=== PATIENT | male | born 1955 | race Caucasian/White ===

== ENCOUNTER → 2017-10-07 09:32 | Outpatient (CLI) | payer BC, SELFPAY ==
[2017-10-07 11:26] LABS: HCT 51.2 % (40.0-50.0); HGB 17.4 g/dL (13.5-17.5); Mean Corpuscular Hemoglobin 31.1 pg (27.0-33.0); Mean Corpuscular Volume 91.6 fL (80-95); Mean Platelet Volume 10.4 fL (8.0-11.0); Platelet Count 245 x1000/uL (130-400); RBC 5.59 m/cumm (4.50-6.00); White Blood Cell Count 7.52 k/cumm (4.4-10.8)
[2017-10-07 12:04] LABS: ALT 77 U/L (12-78); AST 38 U/L (15-37); Albumin 3.7 g/dL (3.4-5.0); Alkaline Phosphatase 99 U/L (46-116); Anion Gap 6.6 mmol/L (3-11); BUN 14 mg/dL (7-18); Bilirubin, Total 0.4 mg/dL (0.2-1.0); C-Reactive Protein 0.31 mg/dL (0.0-0.3); CO2 29.4 mmol/L (21.0-32.0); CREATININE 0.88 mg/dL (0.70-1.30); Calcium 9.1 mg/dL (8.5-10.1); Chloride 102 mmol/L (98-107); Glucose 89 mg/dL (70-100); Potassium 4.7 mmol/L (3.5-5.1); Sodium 138 mmol/L (136-145); TSH 1.06 uIU/mL (0.358-3.74); Total Protein 7.8 g/dL (6.4-8.2)
[2017-10-07 12:21] LABS: ESR 8 MM/HR (1-20)
[2017-10-08 09:22] LABS: PSA, Screening 0.2 ng/ml (0-4.5)
[2017-10-08 15:19] LABS: Lyme Ab w Rflx to Lyme Confirm Negative
== END ==
PROVIDERS: PCP Emergency Medicine; Visit Provider Emergency Medicine
DX: R53.83 Other fatigue (principal); Z12.5 Encounter for screening for malignant neoplasm of prostate
CPT/HCPCS: 36415; 80053; 84153; 85027; 85652; 84443; 86140; 86618

== ENCOUNTER 2019-02-04 07:00 | Outpatient (CLI) | payer BC, SELFPAY ==
[2019-02-04 12:52] LABS: Abs Immature Grans 0.02 k/cumm (0.0-0.09); Absolute Basophil Count 0.05 k/cumm (0.0-0.2); Absolute Eosinophil Count 0.18 k/cumm (0.0-0.7); Absolute Lymphocyte Count 2.17 k/cumm (1.2-3.4); Absolute Monocyte Count 0.87 k/cumm (0.11-0.7); Absolute Neutrophil Count 3.97 k/cumm (1.2-6.7); Basophils % 0.7; Eosinophils % 2.5; HCT 52.3 % (40.0-50.0); HGB 17.5 g/dL (13.5-17.5); Immature Grans % 0.3; Lymphocytes % 29.9; Mean Corp. HGB Concentration 33.5 g/dL (32.0-36.0); Mean Corpuscular Hemoglobin 30.4 pg (27.0-33.0); Mean Corpuscular Volume 90.8 fL (80-95); Mean Platelet Volume 10.5 fL (8.0-11.0); Neutrophils % 54.6; Platelet Count 271 x1000/uL (130-400); RBC 5.76 m/cumm (4.50-6.00); RBC Distribution Width 13.7 % (11.8-14.1); White Blood Cell Count 7.26 k/cumm (4.4-10.8)
[2019-02-04 13:03] LABS: ALT 61 U/L (16-63); AST 34 U/L (15-37); Albumin 3.9 g/dL (3.4-5.0); Alkaline Phosphatase 83 U/L (46-116); Anion Gap 6.2 mmol/L (3-11); BUN 10 mg/dL (7-18); Bilirubin, Total 0.5 mg/dL (0.2-1.0); CO2 28.8 mmol/L (21.0-32.0); CREATININE 0.97 mg/dL (0.70-1.30); Calcium 9.2 mg/dL (8.5-10.1); Calculated LDL 123 mg/dL; Chloride 101 mmol/L (98-107); Cholesterol 168 mg/dL (<200); Glucose 93 mg/dL (74-106); HDL Cholesterol 35 mg/dL (40-60); Potassium 4.8 mmol/L (3.5-5.1); Sodium 136 mmol/L (136-145); TSH 1.45 uIU/mL (0.36-3.74); Triglyceride 54 mg/dL (<150)
[2019-02-04 13:12] LABS: C-Reactive Protein 0.44 mg/dL (0.0-0.3)
== END 2019-02-04 07:20 ==
PROVIDERS: PCP Emergency Medicine; Visit Provider Emergency Medicine
DX: Z00.00 Encounter for general adult medical examination without abnormal findings (principal); E03.9 Hypothyroidism, unspecified; R53.83 Other fatigue
CPT/HCPCS: 36415; 80053; 80061; 84443; 85025; 86140

== ENCOUNTER 2019-11-14 07:01 | Day surgery (SDC) | payer BC, SELFPAY ==
--- NOTE | 2019-11-14 06:56 | COLE_ITS ---
Date of service: 11/14/19 Time of Service: 08:24 Colonoscopy Report Date of procedure: 11/14/19 Pre-op diagnosis general: Hx of colon polyps Post-op diagnosis procedure note: same (and diverticulosis) Procedure: Colonoscopy with polypectomy Surgeon: Rosalie Rodgers Anesthesia proc note operative: other (General/ASA 2/Antonina Dubose CRNA) Estimated blood loss (mL): 3 Pathology: other (Transverse polyp x1, sigmoid polyp x3, rectal polyp x18) Complications: None Disposition: same day Indications: The patient is here for Colonoscopy pre-op. His last screening was in 2017 and was remarkable for tubular adenomatous polyp. He has no family history of colon cancer. He has not had any bowel habit changes. -Discussed colonoscopy bowel prep as well as the procedure. Discussed possible complications of the procedure to include bleeding, pain, perforation, missed small lesion/polyp, sore throat, aspiration and adverse reaction to the medications. Questions were answered to patient?s satisfaction. No guarantees were implied or given. Prep: Miralax/Dulcolax Procedure Start Time: Procedure End Time: : Retraction Time: 37 minutes Findings: multiple polyps, diverticulosis of the sigmoid colon Procedure Description: After informed consent was obtained the patient was taken to the procedure room and placed in a left decubitous position. Monitors were applied and a time out was done. The patients name, date of , p rocedure, allergies to medications and metal in their body was reviewed. The patient was then sedated. Once sedated and comfortable a rectal exam was done. External exam was normal. Internal exam revealed a normal sphincter tone and no palpable masses. The prostate felt normal. The scope was then introduced and retro-flexed. No internal hemorrhoids were identified. The scope was then advanced to the cecum without difficulty. The ileocecal valve and appendiceal orifice were identified. The prep was adequate. The scope was then slowly retracted over 37 minutes back into the rectum. Po lyps were removed with a hot snare in the transverse colon, and with cold forceps in the sigmoid colon x3 and rectal polyps x18. The scope was removed and the patient was woken up and taken back to Same day surgery in stable condition. The patient tolerated the procedure well and there were no immediate complications. Follow up: The patient should follow up in 3 years unless they develop changes in bowel habits or other new gastrointestinal complaints.
--- NOTE | 2019-11-14 06:57 | W.PM.DSUDISC ---
Discharge Plan Disposition Patient Disposition: HOME Condition: Good Discharge Details Reason For Visit: Colonoscopy Attending Provider: Rosalie Rodgers Primary Care Provider: Thang Reaves Home Meds and New Rx's Prescriptions: Continued ibuprofen 800 MG tablet 800 mg PO BID Qty: 180 RF: 1 clonazepam [Klonopin] 0.5 mg tablet 0.5 mg PO HS Qty: 90 RF: 1 albuterol sulfate [ProAir HFA] 90 mcg/actuation HFA aerosol inhaler 2 inh Inhalation Q6H WHILE AWAKE Qty: 18 RF: 12 (DME) AeroChamber Plus Z Stat Sm Msk 1 EACH spacer 1 ea Miscellaneous DIRECTED Qty: 1 RF: 0 Discontinued polyethylene glycol 3350 17 gram/dose powder 238 g PO ONCE Qty: 238 RF: 0 bisacodyl [Dulcolax (bisacodyl)] 5 mg tablet,delayed release (DR/EC) 5 mg PO ONCE Qty: 4 RF: 0 Discharge Instructions Additional Instructions: Findings: 22 polyps removed diverticulosis Follow up: 3 years Please call if you develop: fevers >101.5 Nausea or Vomiting Abdominal pain that is not transient DAY SURGERY UNIT POST ENDOSCOPY INSTRUCTIONS 1. Because there will be medication in your system for the next 24 hours, you may feel a little sleepy. Your coordination will be affected. Therefore: a. Do not drive or operate dangerous equipment for 24 hours. b. Do not drink alcohol beverages for 24 hours (not even beer). c. Plan to go home and rest for the day. 2. Generally there are no restrictions on your activity after a day or so has gone by, but you may feel a bit fatigued for a few days. 3 After you arrive home you may have a light meal and return to a normal diet as you can tolerate it without feeling sick to your stomach. 4. After surgery, you may feel pain or discomfort. This should be only transient, but if it persists please contact your doctor. 5. If there are any questions regarding the findings of your procedure, please feel free to contact your doctor. 6. If you are unable to contact your doctor with a problem, contact the hospital at [phone]. 7. Continue all your regular medications unless directed otherwise. I understand the above instructions and have no questions. Signature of Patient or Responsible Adult Escort Date/Time Name of Responsible Adult Escort Signature of Nurse Date/Time Activity:: Activity as Tolerated Diet:: high fiber diet Discharge Orders Discharge Orders: Discharge Order (Routine); Ordered 11/14/19 Ordered By: Rosalie Rodgers
[2019-11-14 07:24] VITALS: BP 162/89; PULSE 67; RESP 18; TEMP 36.5; O2SAT 96
[2019-11-14] MEDS: Lactated Ringers 1,000 ML 80 ML IV (07:40)
--- NOTE | 2019-11-14 08:40 | BOWEL_PTH ---
PATIENT: Florencio Salinas LOC: [facility] U#:[id number] AGE/SX: 64/M ROOM: RE11/14/[address]: Rosalie Rodgers MD : [id number] BED: DIS: 11/14/2019 SPEC #: [id number] RECD: 11/14/19 12:24 STATUS: FRANCA REQ #: [id number] NANCY: 11/14/19 08:[address]: Rosalie Rodgers DEPT: Surgical Specimen RECD BY: Katja Upton ENTERED: 11/14/19 12:26 SP TYPE: Bowel OTHR DR: Thang Reaves DO Tissues: 1 - BIOPSY BOWEL 2 - BIOPSY BOWEL 3 - BIOPSY BOWEL Procedures: GROSS AND MICRO LEVEL 4 Comments: [id number]
[2019-11-14 09:40] VITALS: BP 112/82; PULSE 61; RESP 18; TEMP 35.8; O2SAT 94
== END 2019-11-14 10:20 | disposition home or self-care (01) ==
LOC: SUR 07:02
PROVIDERS: PCP Emergency Medicine; Visit Provider Surgery
PROC: 0DJD8ZZ Inspection of Lower Intestinal Tract, Via Natural or Artificial Opening Endoscopic (ICD-10-PCS; CPT 45378; principal; 2019-11-14 08:30)
DX: Z12.11 Encounter for screening for malignant neoplasm of colon (principal); K57.30 Diverticulosis of large intestine without perforation or abscess without bleeding; K62.1 Rectal polyp; K63.5 Polyp of colon; F17.210 Nicotine dependence, cigarettes, uncomplicated; J45.909 Unspecified asthma, uncomplicated
CPT/HCPCS: 45380; 88305

== ENCOUNTER 2020-02-14 00:38 | Outpatient (CLI) | payer BC, SELFPAY ==
--- NOTE | 2020-02-14 08:00 | DI.CT_ITS ---
EXAM: CT CHEST W CLINICAL HISTORY: Hemoptysis. Heavy smoking,SOB,R06.02,R04.2,F17.200 TECHNIQUE: Imaging Protocol: Axial computed tomography images with coronal and sagittal reformatted images were created and reviewed CONTRAST MATERIAL: Intravenous: Omnipaque 350 Contrast volume:70 mL. COMPARISON: CR CHEST 2 VIEWS PA,LAT from 05/22/2015 FINDINGS: Tracheobronchial tree: Patent where visualized. Mediastinum and Sammie: Left hilar adenopathy. The largest lymph node measures 2.3 x 1.7 cm. Pulmonary parenchyma: Centrilobular and paraseptal emphysematous changes. There is a 4.9 x 3 x 4.2 c m thick walled mass in the peripheral aspect of the left lower lobe. There is central air which may reflect necrosis. There is a 0.6 cm nodule anterior to the mass in the left lower lobe. This may re present and a satellite metastasis. No focal consolidating infiltrates. Pleura: No effusion or pneumothorax. Heart: The heart is not dilated. Moderate coronary artery calcification. No significant pericardial effusion. Aorta: Thoracic aorta non-dilated. Atherosclerosis. Upper abdomen: Bilateral renal cysts and bilateral nephrolithiasis. Colonic diverticulosis. Lymph nodes: Please see the above discussion. Bones: Degenerative changes in the spine. Soft tissues: Unremarkable. IMPRESSION: 1. 4.9 x 3 x 4.2 cm thick-walled mass in the left lower lobe suspicious for neoplasm. Left hilar zenon nopathy and 6 mm satellite nodule in the left lower lobe. 2. Centrilobular and paraseptal emphysema. 3. Coronary artery calcification and atherosclerosis. RADIATION DOSE DELIVERED: 727.41mGy.cm Total DLP DATA REPOSITORY: All CT scans at this facility are submitted to the National Radiology Data Registry (NRDR) Dose Index Registry (DIR) with the [employer] (ACR). RADIATION OPTIMIZATION: All CT scans at this facility use at least one of these dose optimization te chniques: automated exposure control; mA and/or kV adjustment per patient size (includes targeted exa ms where dose is matched to clinical indication); or iterative reconstruction.
[2020-02-14 13:17] LABS: Anion Gap 6.3 mmol/L (3-11); BUN 15 mg/dL (7-18); CO2 28.7 mmol/L (21.0-32.0); CREATININE 0.84 mg/dL (0.70-1.30); Chloride 100 mmol/L (98-107); Glucose 84 mg/dL (74-106); Potassium 4.3 mmol/L (3.5-5.1); Sodium 135 mmol/L (136-145)
[2020-02-14] MEDS: Omnipaque 350 MG/ML 100 ML BTL IJ (13:45)
[2020-02-14] MEDS: Normal Saline - Diluent 50 ML VIAL IV (13:47)
== END 2020-02-14 00:58 ==
PROVIDERS: PCP Emergency Medicine; Visit Provider Emergency Medicine
DX: R91.1 Solitary pulmonary nodule (principal); F17.210 Nicotine dependence, cigarettes, uncomplicated; R59.0 Localized enlarged lymph nodes; R91.8 Other nonspecific abnormal finding of lung field; J43.2 Centrilobular emphysema; I25.10 Atherosclerotic heart disease of native coronary artery without angina pectoris; R04.2 Hemoptysis; I10 Essential (primary) hypertension
CPT/HCPCS: 80048; 71260; J3490

== ENCOUNTER 2020-04-16 02:56 | Outpatient (CLI) | payer BC, SELFPAY ==
[2020-04-16 09:18] LABS: Abs Immature Grans 0.24 10^3/uL (0.0-0.06); Absolute Basophil Count 0.05 10^3/uL (0.0-0.2); Basophils % 0.3; Eosinophils % 0.1; HCT 48.4 % (40.0-50.0); HGB 16.6 g/dL (13.5-17.5); Immature Grans % 1.4; Lymphocytes % 14.3; MCH 30.7 pg (27.0-33.0); MCHC 34.3 % (32.0-36.0); MCV 89.6 fL (80-95); MPV 9.6 fL (8.0-11.0); Neutrophils % 80.9; Nucleated RBC 0 %; Platelet Count 497 10^3/uL (130-400); RDW 14.2 % (11.8-14.1); RDW-SD 45.7 fL; WBC 17.24 10^3/uL (4.4-10.8)
[2020-04-16 09:26] LABS: Absolute Eosinophil Count 0.02 10^3/uL (0.0-0.7); Absolute Lymphocyte Count 2.47 10^3/uL (1.2-3.4); Absolute Monocyte Count 0.52 10^3/uL (0.1-0.8); Absolute Neutrophil Count 13.95 10^3/uL (1.2-6.7)
[2020-04-16 09:46] LABS: ALT 385 U/L (16-63); AST 114 U/L (15-37); Albumin 3.7 g/dL (3.4-5.0); Alkaline Phosphatase 162 U/L (46-116); Anion Gap 9.1 mmol/L (3-11); BUN 19 mg/dL (7-18); Bilirubin, Total 0.4 mg/dL (0.2-1.0); CO2 24.9 mmol/L (21.0-32.0); CREATININE 0.8 mg/dL (0.70-1.30); Calcium 9.3 mg/dL (8.5-10.1); Chloride 100 mmol/L (98-107); FREE T4 1.17 ng/dL (0.76-1.46); Glucose 154 mg/dL (74-106); LDH 269 U/L (85-227); Potassium 4.5 mmol/L (3.5-5.1); Sodium 134 mmol/L (136-145); TSH 0.72 uIU/mL (0.36-3.74); Total Protein 8.5 g/dL (6.4-8.2)
== END 2020-04-16 02:57 | disposition home or self-care (01) ==
LOC: LBO 02:56
PROVIDERS: PCP Emergency Medicine; Visit Provider Nurse Practitioner Adult Health
DX: C34.30 Malignant neoplasm of lower lobe, unspecified bronchus or lung (principal); Z79.899 Other long term (current) drug therapy
CPT/HCPCS: 36415; 80053; 83615; 84439; 84443; 85025

== ENCOUNTER 2020-04-20 02:21 | Outpatient (CLI) | payer BC, SELFPAY ==
[2020-04-20 10:10] LABS: Abs Immature Grans 0.03 10^3/uL (0.0-0.06); HCT 49.8 % (40.0-50.0); MCH 30.7 pg (27.0-33.0); MCHC 34.1 % (32.0-36.0); MCV 90.1 fL (80-95); MPV 10.3 fL (8.0-11.0); Nucleated RBC 0 %; RBC 5.53 10^6/uL (4.36-5.78); RDW 14.1 % (11.8-14.1); RDW-SD 46.8 fL; WBC 12.31 10^3/uL (4.4-10.8)
[2020-04-20 10:16] LABS: ALT 421 U/L (16-63); AST 165 U/L (15-37); Albumin 3.7 g/dL (3.4-5.0); Alkaline Phosphatase 138 U/L (46-116); Anion Gap 8.7 mmol/L (3-11); BUN 21 mg/dL (7-18); Bilirubin, Direct 0.24 mg/dL (0.00-0.20); Bilirubin, Total 0.9 mg/dL (0.2-1.0); CO2 27.3 mmol/L (21.0-32.0); CREATININE 0.8 mg/dL (0.70-1.30); Calcium 8.9 mg/dL (8.5-10.1); Chloride 98 mmol/L (98-107); FREE T4 1.39 ng/dL (0.76-1.46); Glucose 78 mg/dL (74-106); LDH 248 U/L (85-227); Potassium 4.4 mmol/L (3.5-5.1); Sodium 134 mmol/L (136-145); Total Protein 7.5 g/dL (6.4-8.2)
[2020-04-20 10:49] LABS: Absolute Eosinophil Count 0.37 10^3/uL (0.0-0.7); Absolute Monocyte Count 0.12 10^3/uL (0.1-0.8); Absolute Neutrophil Count 8.62 10^3/uL (1.2-6.7); Atypical Lymphocytes % 4; Diff Comment Manual Differential
[2020-04-20 10:50] LABS: Platelet Count 354 10^3/uL (130-400); RBC Morphology Normal
[2020-04-23 09:13] LABS: HBs Antibody, Quant <3.1 mIU/mL (See Note); Hepatitis B Surface Ab Negative (See Note)
[2020-04-23 09:26] LABS: Hepatitis B Surface Ag Negative (Negative)
[2020-04-23 11:42] LABS: Hepatitis C Ab w Rflx HCV PCR Reactive (Negative)
[2020-04-25 14:03] LABS: HCV RNA Qualitative Detected (Undetected)
== END 2020-04-20 02:22 | disposition home or self-care (01) ==
LOC: LBO 02:21
PROVIDERS: PCP Emergency Medicine; Visit Provider Nurse Practitioner Adult Health
DX: C34.30 Malignant neoplasm of lower lobe, unspecified bronchus or lung (principal); R74.01 Elevation of levels of liver transaminase levels; Z79.899 Other long term (current) drug therapy
CPT/HCPCS: 36415; 80053; 80076; 86706; 86803; 87340; 87522; 83615; 84439; 84443; 85025

== ENCOUNTER 2020-04-23 15:23 | Outpatient (CLI) | payer BC, SELFPAY ==
[2020-04-23 15:45] LABS: Abs Immature Grans 0.07 10^3/uL (0.0-0.06); Absolute Basophil Count 0.01 10^3/uL (0.0-0.2); Absolute Eosinophil Count 0.01 10^3/uL (0.0-0.7); Absolute Neutrophil Count 9.97 10^3/uL (1.2-6.7); Basophils % 0.1; Eosinophils % 0.1; HCT 45.5 % (40.0-50.0); HGB 15.9 g/dL (13.5-17.5); Immature Grans % 0.5; Lymphocytes % 16.3; MCH 31.3 pg (27.0-33.0); MCHC 34.9 % (32.0-36.0); MCV 89.6 fL (80-95); MPV 10.5 fL (8.0-11.0); Monocytes % 6.2; Neutrophils % 76.8; Nucleated RBC 0 %; RBC 5.08 10^6/uL (4.36-5.78); RDW 13.3 % (11.8-14.1); RDW-SD 43.8 fL; WBC 12.98 10^3/uL (4.4-10.8)
[2020-04-23 15:47] LABS: Absolute Lymphocyte Count 2.12 10^3/uL (1.2-3.4)
[2020-04-23 15:48] LABS: Platelet Count 205 10^3/uL (130-400)
[2020-04-23 16:07] LABS: ALT 311 U/L (16-63); AST 68 U/L (15-37); Albumin 3.4 g/dL (3.4-5.0); Alkaline Phosphatase 144 U/L (46-116); Anion Gap 7.5 mmol/L (3-11); BUN 22 mg/dL (7-18); Bilirubin, Total 0.5 mg/dL (0.2-1.0); CO2 26.5 mmol/L (21.0-32.0); CREATININE 0.8 mg/dL (0.70-1.30); Calcium 9.4 mg/dL (8.5-10.1); Chloride 99 mmol/L (98-107); FREE T4 1.12 ng/dL (0.76-1.46); Glucose 137 mg/dL (74-106); LDH 173 U/L (85-227); Potassium 4.4 mmol/L (3.5-5.1); Sodium 133 mmol/L (136-145); TSH 0.27 uIU/mL (0.36-3.74); Total Protein 7.4 g/dL (6.4-8.2)
== END 2020-04-23 15:24 | disposition home or self-care (01) ==
LOC: LBO 15:24
PROVIDERS: PCP Emergency Medicine; Visit Provider Nurse Practitioner Adult Health
DX: C34.30 Malignant neoplasm of lower lobe, unspecified bronchus or lung (principal); Z79.899 Other long term (current) drug therapy
CPT/HCPCS: 36415; 80053; 83615; 84439; 84443; 85025

== ENCOUNTER 2020-05-01 03:27 | Outpatient (CLI) | payer BC, SELFPAY ==
[2020-05-01 12:57] LABS: ALT 497 U/L (16-63); AST 143 U/L (15-37); Albumin 3.2 g/dL (3.4-5.0); Alkaline Phosphatase 144 U/L (46-116); Anion Gap 4.6 mmol/L (3-11); BUN 16 mg/dL (7-18); Bilirubin, Total 0.4 mg/dL (0.2-1.0); CO2 29.4 mmol/L (21.0-32.0); CREATININE 0.9 mg/dL (0.70-1.30); Chloride 101 mmol/L (98-107); Glucose 100 mg/dL (74-106); Potassium 4.4 mmol/L (3.5-5.1); Sodium 135 mmol/L (136-145); Total Protein 6.8 g/dL (6.4-8.2)
[2020-05-01 15:33] LABS: Abs Immature Grans 0.15 10^3/uL (0.0-0.06); Absolute Basophil Count 0.04 10^3/uL (0.0-0.2); Absolute Eosinophil Count 0.01 10^3/uL (0.0-0.7); Absolute Lymphocyte Count 1.45 10^3/uL (1.2-3.4); Basophils % 0.5; Eosinophils % 0.1; HCT 48.3 % (40.0-50.0); HGB 16.4 g/dL (13.5-17.5); Immature Grans % 1.9; Lymphocytes % 18.5; MCH 31.2 pg (27.0-33.0); MPV 11.1 fL (8.0-11.0); Monocytes % 17.8; Neutrophils % 61.2; Nucleated RBC 0 %; Platelet Count 159 10^3/uL (130-400); RBC 5.25 10^6/uL (4.36-5.78); RDW 15.5 % (11.8-14.1); RDW-SD 50.4 fL; WBC 7.85 10^3/uL (4.4-10.8)
[2020-05-01 16:01] LABS: ALT 516 U/L (16-63); AST 144 U/L (15-37); Albumin 3.3 g/dL (3.4-5.0); Alkaline Phosphatase 141 U/L (46-116); Anion Gap 6.5 mmol/L (3-11); BUN 16 mg/dL (7-18); Bilirubin, Total 0.4 mg/dL (0.2-1.0); CO2 29.5 mmol/L (21.0-32.0); CREATININE 0.8 mg/dL (0.70-1.30); Chloride 100 mmol/L (98-107); FREE T4 1.19 ng/dL (0.76-1.46); Glucose 99 mg/dL (74-106); LDH 245 U/L (85-227); Potassium 4.4 mmol/L (3.5-5.1); Sodium 136 mmol/L (136-145); TSH 0.97 uIU/mL (0.36-3.74); Total Protein 6.9 g/dL (6.4-8.2)
== END 2020-05-01 03:28 | disposition home or self-care (01) ==
PROVIDERS: PCP Emergency Medicine; Visit Provider Nurse Practitioner Adult Health
DX: C34.30 Malignant neoplasm of lower lobe, unspecified bronchus or lung (principal); Z79.899 Other long term (current) drug therapy
CPT/HCPCS: 36415; 80053; 83615; 84439; 84443; 85025

== ENCOUNTER 2020-05-07 07:07 | Outpatient (CLI) | payer BC, SELFPAY ==
[2020-05-07 09:18] LABS: Abs Immature Grans 0.29 10^3/uL (0.0-0.06); Absolute Basophil Count 0.05 10^3/uL (0.0-0.2); Absolute Lymphocyte Count 1.13 10^3/uL (1.2-3.4); Absolute Neutrophil Count 10.92 10^3/uL (1.2-6.7); Basophils % 0.4; HGB 16.8 g/dL (13.5-17.5); Immature Grans % 2.2; Lymphocytes % 8.7; MCH 31.8 pg (27.0-33.0); MCHC 34.3 % (32.0-36.0); MCV 92.6 fL (80-95); MPV 10.5 fL (8.0-11.0); Monocytes % 4.8; Neutrophils % 83.9; Nucleated RBC 0 %; Platelet Count 252 10^3/uL (130-400); RBC 5.29 10^6/uL (4.36-5.78); RDW 16.2 % (11.8-14.1); RDW-SD 54.2 fL; WBC 13.02 10^3/uL (4.4-10.8)
[2020-05-07 09:38] LABS: Absolute Monocyte Count 0.62 10^3/uL (0.1-0.8)
[2020-05-07 09:39] LABS: ALT 537 U/L (16-63); AST 138 U/L (15-37); Albumin 3.1 g/dL (3.4-5.0); Alkaline Phosphatase 165 U/L (46-116); Anion Gap 6.8 mmol/L (3-11); BUN 13 mg/dL (7-18); Bilirubin, Total 0.4 mg/dL (0.2-1.0); CO2 29.2 mmol/L (21.0-32.0); CREATININE 0.9 mg/dL (0.70-1.30); Calcium 8.8 mg/dL (8.5-10.1); Chloride 100 mmol/L (98-107); FREE T4 1.14 ng/dL (0.76-1.46); Glucose 152 mg/dL (74-106); LDH 249 U/L (85-227); Potassium 4.5 mmol/L (3.5-5.1); Sodium 136 mmol/L (136-145); TSH 0.61 uIU/mL (0.36-3.74); Total Protein 7.2 g/dL (6.4-8.2)
== END 2020-05-07 07:08 | disposition home or self-care (01) ==
LOC: LBO 07:08
PROVIDERS: PCP Emergency Medicine; Visit Provider Nurse Practitioner Adult Health
DX: C34.30 Malignant neoplasm of lower lobe, unspecified bronchus or lung (principal); Z79.899 Other long term (current) drug therapy
CPT/HCPCS: 36415; 80053; 83615; 84439; 84443; 85025

== ENCOUNTER 2020-05-14 02:12 | Outpatient (CLI) | payer BC, SELFPAY ==
--- NOTE | 2020-05-14 08:48 | DI.CT_ITS ---
EXAM: CT CHEST W CLINICAL HISTORY: METASTATIC LUNG CA,RESTAGING EXAM,S/O CHEMO,C34.30. TECHNIQUE: Multi planar reconstructions were performed. CONTRAST MATERIAL: Omnipaque 350; 70 cc COMPARISON: CT CT CHEST W from 02/14/2020 FINDINGS: CHEST: LUNGS: Again noted is the pleural based partially cavitated left lower lobe mass,, exhibiting minimal decrease in size. This mass presently measures approximately 4.2 cm by 2.3 cm by 3 cm craniocaudal. There is no associated pleural effusion nor overlying left rib destruction. There is a tiny 2-3 mi llimeter unchanged pleural base nodular density at the level superior segment of the left lower lobe which is unchanged.. No other focal left lung findings.. There are no focal findings in the opposit e-right lung and no right pleural effusion. There are no significant focal findings in the trachea a nd mainstem bronchi. MEDIASTINUM: The size of the previously described left hilar lymph nodes have decreased. Opposite-ri ght hilum is unremarkable. There is no obvious subcarinal adenopathy. There is no adenopathy in the anterior mediastinal fat nor in the aortopulmonic window. There is no supraclavicular adenopathy. There is no axillary adenopathy. Visualized thyroid unremarkable. CARDIAC: Heart size is normal. There is no pericardial effusion.Caliber of the thoracic aorta is wit hin normal limits. VISUALIZED UPPER ABDOMEN:There are no significant adrenal masses. Partially included left kidney cys t is again noted. OSSEOUS: No significant osseous lesions.. IMPRESSION: 1. Relatively stable (perhaps slightly decreased) size of the left lower lobe partially cavitated sub pleural mass. No new pulmonary findings nor pleural effusions 2. Left hilar lymph nodes have decreased in size. No new adenopathy in the hilar regions and mediast inum. 3. No lytic osseous lesions evident. RADIATION DOSE DELIVERED: 581.15mGy.cm Total DLP DATA REPOSITORY: All CT scans at this facility are submitted to the National Radiology Data Registry (NRDR) Dose Index Registry (DIR) with the [employer] (ACR). RADIATION OPTIMIZATION: All CT scans at this facility use at least one of these dose optimization te chniques: automated exposure control; mA and/or kV adjustment per patient size (includes targeted exa ms where dose is matched to clinical indication); or iterative reconstruction.
[2020-05-14] MEDS: Normal Saline - Diluent 50 ML VIAL IV (08:51)
[2020-05-14] MEDS: Omnipaque 350 MG/ML 100 ML BTL 70 ML IJ (08:52)
== END 2020-05-14 02:32 ==
PROVIDERS: PCP Emergency Medicine; Visit Provider Internal Medicine Medical Oncology
DX: R91.8 Other nonspecific abnormal finding of lung field (principal); C34.32 Malignant neoplasm of lower lobe, left bronchus or lung; R59.0 Localized enlarged lymph nodes
CPT/HCPCS: 71260; J3490

== ENCOUNTER 2020-05-21 04:20 | Outpatient (CLI) | payer BC, SELFPAY ==
[2020-05-21 10:43] LABS: Abs Immature Grans 0.06 10^3/uL (0.0-0.06); Absolute Basophil Count 0.02 10^3/uL (0.0-0.2); Absolute Monocyte Count 0.52 10^3/uL (0.1-0.8); Absolute Neutrophil Count 9.81 10^3/uL (1.2-6.7); Basophils % 0.2; HCT 52.2 % (40.0-50.0); HGB 17.9 g/dL (13.5-17.5); Immature Grans % 0.5; Lymphocytes % 10.6; MCH 31.8 pg (27.0-33.0); MCHC 34.3 % (32.0-36.0); MCV 92.7 fL (80-95); MPV 10.4 fL (8.0-11.0); Monocytes % 4.5; Neutrophils % 84.2; Nucleated RBC 0 %; Platelet Count 185 10^3/uL (130-400); RBC 5.63 10^6/uL (4.36-5.78); RDW 16.2 % (11.8-14.1); RDW-SD 55.3 fL; WBC 11.65 10^3/uL (4.4-10.8)
[2020-05-21 11:06] LABS: ALT 419 U/L (16-63); AST 189 U/L (15-37); Albumin 3.1 g/dL (3.4-5.0); Alkaline Phosphatase 164 U/L (46-116); Anion Gap 11.4 mmol/L (3-11); BUN 12 mg/dL (7-18); Bilirubin, Total 0.8 mg/dL (0.2-1.0); CO2 22.6 mmol/L (21.0-32.0); Calcium 9.5 mg/dL (8.5-10.1); Chloride 100 mmol/L (98-107); FREE T4 1.36 ng/dL (0.76-1.46); Glucose 188 mg/dL (74-106); LDH 267 U/L (85-227); Potassium 4.1 mmol/L (3.5-5.1); Sodium 134 mmol/L (136-145); TSH 0.61 uIU/mL (0.36-3.74); Total Protein 8.3 g/dL (6.4-8.2)
[2020-05-21 11:07] LABS: Absolute Lymphocyte Count 1.23 10^3/uL (1.2-3.4)
== END 2020-05-21 04:21 | disposition home or self-care (01) ==
LOC: LBO 04:20
PROVIDERS: PCP Emergency Medicine; Visit Provider Nurse Practitioner Adult Health
DX: C34.30 Malignant neoplasm of lower lobe, unspecified bronchus or lung (principal); Z79.899 Other long term (current) drug therapy
CPT/HCPCS: 36415; 80053; 83615; 84439; 84443; 85025

== ENCOUNTER 2020-06-11 03:21 | Outpatient (CLI) | payer BC, SELFPAY ==
[2020-06-11 12:21] LABS: Abs Immature Grans 0.11 10^3/uL (0.0-0.06); Absolute Basophil Count 0.03 10^3/uL (0.0-0.2); Absolute Lymphocyte Count 1.95 10^3/uL (1.2-3.4); Absolute Neutrophil Count 9.95 10^3/uL (1.2-6.7); Basophils % 0.2; HCT 48.9 % (40.0-50.0); HGB 16.7 g/dL (13.5-17.5); Immature Grans % 0.8; MCH 32.3 pg (27.0-33.0); MCHC 34.2 % (32.0-36.0); MCV 94.6 fL (80-95); MPV 9.8 fL (8.0-11.0); Monocytes % 7.5; Neutrophils % 76.5; Nucleated RBC 0 %; Platelet Count 382 10^3/uL (130-400); RBC 5.17 10^6/uL (4.36-5.78); RDW 15.9 % (11.8-14.1); RDW-SD 56.5 fL; WBC 13.01 10^3/uL (4.4-10.8)
[2020-06-11 12:24] LABS: Absolute Monocyte Count 0.98 10^3/uL (0.1-0.8)
[2020-06-11 12:43] LABS: ALT 270 U/L (16-63); AST 124 U/L (15-37); Albumin 3.5 g/dL (3.4-5.0); Alkaline Phosphatase 130 U/L (46-116); BUN 11 mg/dL (7-18); Bilirubin, Total 0.4 mg/dL (0.2-1.0); CREATININE 1.1 mg/dL (0.70-1.30); Calcium 9.9 mg/dL (8.5-10.1); Chloride 102 mmol/L (98-107); FREE T4 1.17 ng/dL (0.76-1.46); Glucose 138 mg/dL (74-106); LDH 254 U/L (85-227); Sodium 136 mmol/L (136-145); TSH 0.35 uIU/mL (0.36-3.74); Total Protein 8.2 g/dL (6.4-8.2)
== END 2020-06-11 03:22 | disposition home or self-care (01) ==
LOC: LBO 03:22
PROVIDERS: PCP Emergency Medicine; Visit Provider Nurse Practitioner Adult Health
DX: C34.32 Malignant neoplasm of lower lobe, left bronchus or lung (principal); Z79.899 Other long term (current) drug therapy
CPT/HCPCS: 36415; 80053; 83615; 84439; 84443; 85025

== ENCOUNTER 2020-07-02 09:49 | Outpatient (CLI) | payer BC, SELFPAY ==
[2020-07-02 10:05] LABS: Abs Immature Grans 0.03 10^3/uL (0.0-0.06); Absolute Basophil Count 0.02 10^3/uL (0.0-0.2); Absolute Lymphocyte Count 1.46 10^3/uL (1.2-3.4); Absolute Monocyte Count 0.43 10^3/uL (0.1-0.8); Basophils % 0.3; HCT 46.9 % (40.0-50.0); HGB 16.5 g/dL (13.5-17.5); Immature Grans % 0.5; Lymphocytes % 24.6; MCH 33.7 pg (27.0-33.0); MCHC 35.2 % (32.0-36.0); MCV 95.9 fL (80-95); MPV 9.7 fL (8.0-11.0); Monocytes % 7.2; Neutrophils % 67.4; Nucleated RBC 0 %; Platelet Count 380 10^3/uL (130-400); RBC 4.89 10^6/uL (4.36-5.78); RDW-SD 53.9 fL; WBC 5.94 10^3/uL (4.4-10.8)
[2020-07-02 10:26] LABS: ALT 44 U/L (16-63); AST 26 U/L (15-37); Albumin 3.6 g/dL (3.4-5.0); Alkaline Phosphatase 105 U/L (46-116); BUN 10 mg/dL (7-18); Bilirubin, Total 0.4 mg/dL (0.2-1.0); CREATININE 1.1 mg/dL (0.70-1.30); Calcium 9.6 mg/dL (8.5-10.1); Chloride 100 mmol/L (98-107); FREE T4 1.29 ng/dL (0.76-1.46); Glucose 170 mg/dL (74-106); LDH 241 U/L (85-227); Potassium 4.2 mmol/L (3.5-5.1); Sodium 136 mmol/L (136-145); TSH 0.31 uIU/mL (0.36-3.74); Total Protein 8.5 g/dL (6.4-8.2)
== END 2020-07-02 09:50 | disposition home or self-care (01) ==
PROVIDERS: PCP Emergency Medicine; Visit Provider Nurse Practitioner Adult Health
DX: C34.32 Malignant neoplasm of lower lobe, left bronchus or lung (principal); Z79.899 Other long term (current) drug therapy
CPT/HCPCS: 36415; 80053; 83615; 84439; 84443; 85025

== ENCOUNTER 2020-07-30 04:40 | Outpatient (CLI) | payer BC, SELFPAY ==
[2020-07-30 10:08] LABS: Abs Immature Grans 0.15 10^3/uL (0.0-0.06); Absolute Basophil Count 0.03 10^3/uL (0.0-0.2); Basophils % 0.2; HCT 41.5 % (40.0-50.0); HGB 14.6 g/dL (13.5-17.5); Immature Grans % 0.9; Lymphocytes % 9.7; MCH 34.4 pg (27.0-33.0); MCHC 35.2 % (32.0-36.0); MCV 97.9 fL (80-95); MPV 10.1 fL (8.0-11.0); Monocytes % 6.7; Neutrophils % 82.5; Nucleated RBC 0 %; Platelet Count 250 10^3/uL (130-400); RBC 4.24 10^6/uL (4.36-5.78); RDW 13.9 % (11.8-14.1); RDW-SD 49.9 fL; WBC 17.38 10^3/uL (4.4-10.8)
[2020-07-30 10:12] LABS: Absolute Lymphocyte Count 1.69 10^3/uL (1.2-3.4); Absolute Monocyte Count 1.16 10^3/uL (0.1-0.8); Absolute Neutrophil Count 14.34 10^3/uL (1.2-6.7)
[2020-07-30 10:30] LABS: ALT 27 U/L (16-63); AST 28 U/L (15-37); Albumin 3.3 g/dL (3.4-5.0); Alkaline Phosphatase 101 U/L (46-116); Anion Gap 9.7 mmol/L (3-11); BUN 16 mg/dL (7-18); Bilirubin, Total 0.3 mg/dL (0.2-1.0); CO2 26.3 mmol/L (21.0-32.0); CREATININE 0.9 mg/dL (0.70-1.30); Calcium 9.4 mg/dL (8.5-10.1); Chloride 101 mmol/L (98-107); FREE T4 1.02 ng/dL (0.76-1.46); Glucose 128 mg/dL (74-106); LDH 282 U/L (85-227); Potassium 4.5 mmol/L (3.5-5.1); Sodium 137 mmol/L (136-145); TSH 0.34 uIU/mL (0.36-3.74); Total Protein 8.2 g/dL (6.4-8.2)
== END 2020-07-30 04:41 | disposition home or self-care (01) ==
LOC: LBO 04:40
PROVIDERS: PCP Emergency Medicine; Visit Provider Nurse Practitioner Adult Health
DX: C34.32 Malignant neoplasm of lower lobe, left bronchus or lung (principal); Z79.899 Other long term (current) drug therapy
CPT/HCPCS: 36415; 80053; 83615; 84439; 84443; 85025

== ENCOUNTER 2020-08-20 03:29 | Outpatient (CLI) | payer BC, SELFPAY ==
[2020-08-20 09:34] LABS: Abs Immature Grans 0.02 10^3/uL (0.0-0.06); Absolute Basophil Count 0.08 10^3/uL (0.0-0.2); Absolute Eosinophil Count 0.41 10^3/uL (0.0-0.7); Absolute Lymphocyte Count 2.53 10^3/uL (1.2-3.4); Absolute Monocyte Count 1.33 10^3/uL (0.1-0.8); Basophils % 1.1; Eosinophils % 5.9; HGB 14.6 g/dL (13.5-17.5); Immature Grans % 0.3; Lymphocytes % 36.3; MCH 34.7 pg (27.0-33.0); MCV 102.1 fL (80-95); MPV 9.7 fL (8.0-11.0); Monocytes % 19.1; Neutrophils % 37.3; Nucleated RBC 0 %; Platelet Count 318 10^3/uL (130-400); RBC 4.21 10^6/uL (4.36-5.78); RDW 13.3 % (11.8-14.1); RDW-SD 50.1 fL; WBC 6.97 10^3/uL (4.4-10.8)
[2020-08-20 09:56] LABS: ALT 60 U/L (16-63); AST 37 U/L (15-37); Albumin 3.3 g/dL (3.4-5.0); Alkaline Phosphatase 102 U/L (46-116); Anion Gap 10.1 mmol/L (3-11); BUN 13 mg/dL (7-18); Bilirubin, Total 0.3 mg/dL (0.2-1.0); CO2 25.9 mmol/L (21.0-32.0); Calcium 9.4 mg/dL (8.5-10.1); Chloride 105 mmol/L (98-107); FREE T4 1.07 ng/dL (0.76-1.46); Glucose 95 mg/dL (74-106); LDH 278 U/L (85-227); Potassium 4.2 mmol/L (3.5-5.1); Sodium 141 mmol/L (136-145); TSH 1.38 uIU/mL (0.36-3.74); Total Protein 7.9 g/dL (6.4-8.2)
== END 2020-08-20 03:30 | disposition home or self-care (01) ==
LOC: LBO 03:29
PROVIDERS: PCP Emergency Medicine; Visit Provider Nurse Practitioner Adult Health
DX: C34.32 Malignant neoplasm of lower lobe, left bronchus or lung (principal); Z79.899 Other long term (current) drug therapy
CPT/HCPCS: 36415; 80053; 83615; 84439; 84443; 85025

== ENCOUNTER 2020-08-30 01:22 | Outpatient (CLI) | payer BC, SELFPAY ==
--- NOTE | 2020-08-30 08:00 | ETT_ITS ---
APPROVED REPORT Exam: Exercise Treadmill Patient Location: Out-Patient Room/Bed: Stress Nurse: Kala Haines RN Ordering Provider:PÉREZ RICH, Contact Number: [phone] BMI: 29.91 Baseline Rhythm: Sinus Rhythm Indications: Chest pain Medical History Medical History: Adenocarcinoma of lung, kidney, brain (stage 4), SOB, anxiety, COPD, diverticulitis Cardiac Medications: Albuterol sulfate, clonazepam Allergies: Theophylline Cardiac Risk Factors: COPD, tobacco abuse (current) Previous Cardiac Procedures: None Pretest Chest Pain Characteristics: None Exercise History: Sedentary Physical Disabilities: None Lung Sounds: Clear to auscultation Heart Sounds: Regular Stress Test Details Test: Exercise stress testing was performed using a Tip protocol. Rest Stress HR Resting HR Supine: 60 bpm Max Heart Rate (APMHR): 155 bpm Resting HR Standin bpm Target HR (85% APMHR): 131 bpm Max HR Achieved: 103 bpm % of APMHR: 66 Recovery HR: 70 bpm HR response to stress: Normal HR response to stress Comment: Non-diagnostic, did not achieve THR BP Resting BP Supine: 150/82 mmHg Resting BP Standin/78 mmHg Max BP: 172/68 mmHg Recovery BP: 142/76 mmHg BP response to stress: Normal blood pressure response to stress. ECG Resting ECG: Sinus Rhythm Ectopy: None Stress ECG: Sinus Tachycardia ST Change: No significant ST segment changes noted Arrhythmia: None Comment: T waves flipped in lead V2 Recovery ECG: Sinus Rhythm Recovery ST Change: No significant ST segment changes noted Recovery Arrhythmia: Rare PVC Clinical Reason for Termination: Fatigue, Dyspnea Stress Symptoms: General Fatigue, Dyspnea Exercise duration: 5 min44 sec Highest Stage Reached: Stage 2: 2.5 mph at 12% grade. Exercise capacity: 7.05 METs Rate Pressure Product: 03492 Stress ECG Conclusion 1. The patient exercised for 5 minutes and 44 seconds (7 METS). Exercise was stopped due to dyspnea and fatigue. 2. The patient only reached 66% of maximum predicted heart rate. 3. At this level of stress there was no evidence of ischemia on the ECG. If clinical suspicion remai ns high consider alternative diagnostic modality. Stress Test Summary STAGE Time (mins) Speed (mph) Grade (%) HR BP SYMPTOMS METS Supine 60 150/82 Standing 79 144/78 1 3 1.7 10 88 160/76 SpO2 96%, mild SOB 4.6 2 6 2.5 12 100 SpO2 96%, moderate SOB 7 1 min recovery 99 172/68 SpO2 97% 3 min recovery 77 158/74 SpO2 97%, mild SOB 6 min recovery 70 142/76 symptoms resolved
== END 2020-08-30 01:42 ==
PROVIDERS: PCP Emergency Medicine; Visit Provider Emergency Medicine
DX: R07.9 Chest pain, unspecified (principal); J44.9 Chronic obstructive pulmonary disease, unspecified; F17.290 Nicotine dependence, other tobacco product, uncomplicated
CPT/HCPCS: 93017

== ENCOUNTER 2020-09-17 16:07 | Outpatient (CLI) | payer BC, SELFPAY ==
[2020-09-17 10:10] LABS: Absolute Basophil Count 0.03 10^3/uL (0.0-0.2); Basophils % 0.2; HCT 41.9 % (40.0-50.0); HGB 14.2 g/dL (13.5-17.5); Immature Grans % 0.6; Lymphocytes % 9.1; MCH 34.8 pg (27.0-33.0); MCHC 33.9 % (32.0-36.0); MCV 102.7 fL (80-95); MPV 10.1 fL (8.0-11.0); Neutrophils % 82.1; Nucleated RBC 0 %; Platelet Count 262 10^3/uL (130-400); RBC 4.08 10^6/uL (4.36-5.78); RDW 13.2 % (11.8-14.1); RDW-SD 50.1 fL; WBC 17.07 10^3/uL (4.4-10.8)
[2020-09-17 10:14] LABS: Absolute Lymphocyte Count 1.55 10^3/uL (1.2-3.4); Absolute Monocyte Count 1.37 10^3/uL (0.1-0.8); Absolute Neutrophil Count 14.01 10^3/uL (1.2-6.7)
[2020-09-17 10:34] LABS: ALT 37 U/L (16-63); AST 30 U/L (15-37); Albumin 3.5 g/dL (3.4-5.0); Alkaline Phosphatase 99 U/L (46-116); BUN 14 mg/dL (7-18); Bilirubin, Total 0.4 mg/dL (0.2-1.0); Calcium 9.5 mg/dL (8.5-10.1); Chloride 102 mmol/L (98-107); FREE T4 1.02 ng/dL (0.76-1.46); Glucose 137 mg/dL (74-106); LDH 273 U/L (85-227); Potassium 4.4 mmol/L (3.5-5.1); Sodium 137 mmol/L (136-145); TSH 0.39 uIU/mL (0.36-3.74); Total Protein 8.5 g/dL (6.4-8.2)
== END 2020-09-17 16:08 | disposition home or self-care (01) ==
LOC: LBO 16:07
PROVIDERS: PCP Emergency Medicine; Visit Provider Nurse Practitioner Adult Health
DX: C34.30 Malignant neoplasm of lower lobe, unspecified bronchus or lung (principal); Z79.899 Other long term (current) drug therapy
CPT/HCPCS: 36415; 80053; 83615; 84439; 84443; 85025

== ENCOUNTER 2020-10-08 12:09 | Outpatient (CLI) | payer BC, SELFPAY ==
[2020-10-08 12:00] LABS: Abs Immature Grans 0.13 10^3/uL (0.0-0.06); Absolute Basophil Count 0.02 10^3/uL (0.0-0.2); Absolute Lymphocyte Count 1.36 10^3/uL (1.2-3.4); Absolute Monocyte Count 0.93 10^3/uL (0.1-0.8); Absolute Neutrophil Count 14.14 10^3/uL (1.2-6.7); Basophils % 0.1; HCT 41.5 % (40.0-50.0); HGB 13.9 g/dL (13.5-17.5); Immature Grans % 0.8; Lymphocytes % 8.2; MCH 35.1 pg (27.0-33.0); MCHC 33.5 % (32.0-36.0); MCV 104.8 fL (80-95); MPV 9.8 fL (8.0-11.0); Monocytes % 5.6; Neutrophils % 85.3; Nucleated RBC 0 %; Platelet Count 378 10^3/uL (130-400); RBC 3.96 10^6/uL (4.36-5.78); RDW 13.8 % (11.8-14.1); RDW-SD 52.8 fL; WBC 16.58 10^3/uL (4.4-10.8)
[2020-10-08 12:29] LABS: ALT 70 U/L (16-63); AST 35 U/L (15-37); Albumin 3.6 g/dL (3.4-5.0); Alkaline Phosphatase 102 U/L (46-116); Anion Gap 9.2 mmol/L (3-11); BUN 22 mg/dL (7-18); Bilirubin, Total 0.3 mg/dL (0.2-1.0); CO2 25.8 mmol/L (21.0-32.0); Calcium 9.6 mg/dL (8.5-10.1); Chloride 105 mmol/L (98-107); Glucose 120 mg/dL (74-106); LDH 270 U/L (85-227); Potassium 4.6 mmol/L (3.5-5.1); Sodium 140 mmol/L (136-145); TSH 0.39 uIU/mL (0.36-3.74); Total Protein 8.2 g/dL (6.4-8.2)
== END 2020-10-08 12:10 | disposition home or self-care (01) ==
LOC: LBO 12:11
PROVIDERS: PCP Emergency Medicine; Visit Provider Nurse Practitioner Adult Health
DX: C34.30 Malignant neoplasm of lower lobe, unspecified bronchus or lung (principal); Z79.899 Other long term (current) drug therapy
CPT/HCPCS: 36415; 80053; 83615; 84439; 84443; 85025

== ENCOUNTER 2020-10-18 09:53 | Outpatient (CLI) | payer BC, SELFPAY ==
--- NOTE | 2020-10-18 09:15 | DI.RAD_ITS ---
Exam(s) XR KNEE RT 3V AP,LAT,ANISH EXAM: XR KNEE RT 3V AP,LAT,ANISH CLINICAL HISTORY: right knee pain. TECHNIQUE: 2D digital imaging was performed. COMPARISON: CR XR KNEE LT 3V AP,LAT,ANISH from 10/18/2020 FINDINGS: There is no evidence of fracture or obvious joint effusion. No obvious degenerative changes. No oss eous lesions. Bone density normal. No joint space narrowing evident on the standing weight-bearing view. IMPRESSION: No significant radiographic findings. No joint effusion. DATA REPOSITORY: RADIATION DOSE DELIVERED:
--- NOTE | 2020-10-18 09:15 | DI.RAD_ITS ---
Exam(s) XR KNEE LT 3V AP,LAT,ANISH EXAM: XR KNEE LT 3V AP,LAT,ANISH CLINICAL HISTORY: left knee pain. TECHNIQUE: 2D digital imaging was performed. COMPARISON: No exams were available for comparison FINDINGS: No evidence of fracture or joint effusion. Some calcification is noted on the anterosuperior aspect of the patella at the quadriceps insertion site. There is no joint space narrowing including on the weight-bearing standing view. No osteophytes. Bone density normal. No osseous lesions. IMPRESSION: DATA REPOSITORY: RADIATION DOSE DELIVERED:
== END 2020-10-18 09:54 | disposition home or self-care (01) ==
LOC: DIORS 09:53
PROVIDERS: PCP Emergency Medicine; Referring Provider Emergency Medicine; Visit Provider Student in an Organized Health Care Education/Training Program
DX: M25.562 Pain in left knee (principal); M25.561 Pain in right knee
CPT/HCPCS: 73562

== ENCOUNTER 2020-10-31 04:05 | Outpatient (CLI) | payer BC, SELFPAY ==
[2020-10-31 07:35] LABS: Abs Immature Grans 0.04 10^3/uL (0.0-0.06); Absolute Basophil Count 0.06 10^3/uL (0.0-0.2); Absolute Eosinophil Count 0.72 10^3/uL (0.0-0.7); Absolute Lymphocyte Count 2.71 10^3/uL (1.2-3.4); Absolute Monocyte Count 1.44 10^3/uL (0.1-0.8); Absolute Neutrophil Count 3.97 10^3/uL (1.2-6.7); Basophils % 0.7; Eosinophils % 8.1; HCT 41.9 % (40.0-50.0); HGB 14.4 g/dL (13.5-17.5); Immature Grans % 0.4; Lymphocytes % 30.3; MCH 35.7 pg (27.0-33.0); MCHC 34.4 % (32.0-36.0); MPV 9.7 fL (8.0-11.0); Monocytes % 16.1; Neutrophils % 44.4; Nucleated RBC 0 %; Platelet Count 382 10^3/uL (130-400); RBC 4.03 10^6/uL (4.36-5.78); RDW 13.9 % (11.8-14.1); RDW-SD 52.6 fL; WBC 8.94 10^3/uL (4.4-10.8)
[2020-10-31 08:04] LABS: ALT 92 U/L (16-63); AST 53 U/L (15-37); Albumin 3.4 g/dL (3.4-5.0); Alkaline Phosphatase 112 U/L (46-116); Anion Gap 6.5 mmol/L (3-11); BUN 16 mg/dL (7-18); Bilirubin, Total 0.2 mg/dL (0.2-1.0); CO2 29.5 mmol/L (21.0-32.0); CREATININE 1.1 mg/dL (0.70-1.30); Calcium 9.6 mg/dL (8.5-10.1); Chloride 104 mmol/L (98-107); Glucose 125 mg/dL (74-106); LDH 268 U/L (85-227); Potassium 4.2 mmol/L (3.5-5.1); Sodium 140 mmol/L (136-145); Total Protein 8.3 g/dL (6.4-8.2)
== END 2020-10-31 04:06 | disposition home or self-care (01) ==
LOC: LBO 04:05
PROVIDERS: Nurse Practitioner Adult Health; PCP Emergency Medicine; Visit Provider Internal Medicine Medical Oncology
DX: C34.32 Malignant neoplasm of lower lobe, left bronchus or lung (principal); Z79.899 Other long term (current) drug therapy
CPT/HCPCS: 36415; 80053; 83615; 84439; 84443; 85025

== ENCOUNTER 2020-11-06 01:27 | Outpatient (CLI) | payer BC, SELFPAY ==
--- NOTE | 2020-11-06 | DI.MRI_ITS ---
Exam(s) MR BRAIN WO/W EXAM: MR BRAIN WO/W CLINICAL HISTORY: NON SMALL CELL LUNG CA,C34.30,BRAIN METS,C79.31.ON THERAPY TECHNIQUE: Multiplanar multisequence MRI of the brain was performed. CONTRAST MATERIAL: IV Contrast: 18 ML of Dotarem contrast administered. COMPARISON: MR MRI - BRAIN W/WO CONTRAST from 01/12/2013 MR MRI - BRAIN W/WO CONTRAST from 01/12/2013 FINDINGS: VENTRICLES AND EXTRA AXIAL SPACES: Normal in size and morphology for the patient's age. HEMORRHAGE: None. CEREBRAL PARENCHYMA: No focus of restricted diffusion to suggest acute infarct. No space-occupying le larissa identified. There are multiple black dots seen on the gradient images in the parenchyma. There are areas of hyperintense signal on the T2 and FLAIR images in the white matter most consistent with chronic microvascular ischemic disease. MIDLINE SHIFT: None. BRAINSTEM/CEREBELLUM: Normal. CALVARIUM: Normal. ENHANCEMENT: No suspicious enhancement identified. No enhancing intracranial masses. VISUALIZED PARANASAL SINUSES/MASTOIDS: Clear. [place]: Normal flow void. PITUITARY GLAND: Unremarkable. OTHER FINDINGS: IMPRESSION: 1. No evidence of intracranial metastatic disease. 2. Findings of cerebral atrophy and small vessel ischemic disease. 3. Multiple black dots seen on the gradient images in the parenchyma. Differential considerations in clude cerebral amyloid disease, hypertensive microhemorrhages, multiple vascular malformations or tra armen. DATA REPOSITORY:
[2020-11-06] MEDS: Normal Saline Flush 10 ML SYR IVP (12:14)
[2020-11-06] MEDS: Gadoterate meglumine 20 ML VIAL 18 ML IVP (12:15)
== END 2020-11-06 01:47 ==
PROVIDERS: PCP Emergency Medicine; Visit Provider Nurse Practitioner Adult Health
DX: C34.30 Malignant neoplasm of lower lobe, unspecified bronchus or lung (principal); C79.31 Secondary malignant neoplasm of brain; G31.9 Degenerative disease of nervous system, unspecified
CPT/HCPCS: 70553

== ENCOUNTER 2020-11-19 03:27 | Outpatient (CLI) | payer BC, SELFPAY ==
[2020-11-19 12:17] LABS: Abs Immature Grans 0.16 10^3/uL (0.0-0.06); Absolute Basophil Count 0.02 10^3/uL (0.0-0.2); Absolute Lymphocyte Count 1.23 10^3/uL (1.2-3.4); Absolute Neutrophil Count 17.94 10^3/uL (1.2-6.7); Basophils % 0.1; HGB 13.2 g/dL (13.5-17.5); Immature Grans % 0.8; MCH 35.8 pg (27.0-33.0); MCHC 33.8 % (32.0-36.0); MCV 105.7 fL (80-95); MPV 10.3 fL (8.0-11.0); Monocytes % 5.4; Neutrophils % 87.7; Nucleated RBC 0 %; Platelet Count 409 10^3/uL (130-400); RBC 3.69 10^6/uL (4.36-5.78); RDW 14.7 % (11.8-14.1); RDW-SD 56.5 fL; WBC 20.46 10^3/uL (4.4-10.8)
[2020-11-19 13:06] LABS: ALT 86 U/L (16-63); AST 49 U/L (15-37); Albumin 3.4 g/dL (3.4-5.0); Alkaline Phosphatase 114 U/L (46-116); Anion Gap 8.8 mmol/L (3-11); BUN 26 mg/dL (7-18); Bilirubin, Total 0.3 mg/dL (0.2-1.0); CO2 26.2 mmol/L (21.0-32.0); CREATININE 1.1 mg/dL (0.70-1.30); Calcium 9.7 mg/dL (8.5-10.1); Chloride 103 mmol/L (98-107); FREE T4 0.96 ng/dL (0.76-1.46); Glucose 113 mg/dL (74-106); LDH 280 U/L (85-227); Potassium 4.1 mmol/L (3.5-5.1); Sodium 138 mmol/L (136-145); TSH 0.36 uIU/mL (0.36-3.74); Total Protein 8.7 g/dL (6.4-8.2)
[2020-11-20 12:42] LABS: Hepatitis C Ab w Rflx HCV PCR Reactive (Negative)
[2020-11-21 14:01] LABS: HCV RNA Qualitative Undetected (Undetected)
== END 2020-11-19 03:28 | disposition home or self-care (01) ==
LOC: LBO 03:27
PROVIDERS: PCP Emergency Medicine; Visit Provider Internal Medicine Medical Oncology
DX: C34.32 Malignant neoplasm of lower lobe, left bronchus or lung (principal); C79.31 Secondary malignant neoplasm of brain; Z79.899 Other long term (current) drug therapy
CPT/HCPCS: 36415; 80053; 86803; 87522; 83615; 84439; 84443; 85025

== ENCOUNTER 2020-12-10 02:55 | Outpatient (CLI) | payer BC, SELFPAY ==
[2020-12-10 12:42] LABS: Abs Immature Grans 0.16 10^3/uL (0.0-0.06); Basophils % 0.1; HCT 39.7 % (40.0-50.0); HGB 13.6 g/dL (13.5-17.5); Immature Grans % 0.8; Lymphocytes % 6.6; MCH 36.4 pg (27.0-33.0); MCHC 34.3 % (32.0-36.0); MCV 106.1 fL (80-95); MPV 10.4 fL (8.0-11.0); Monocytes % 6.4; Neutrophils % 86.1; Nucleated RBC 0 %; Platelet Count 419 10^3/uL (130-400); RBC 3.74 10^6/uL (4.36-5.78); RDW 15.2 % (11.8-14.1); RDW-SD 59.6 fL; WBC 20.55 10^3/uL (4.4-10.8)
[2020-12-10 12:45] LABS: Absolute Basophil Count 0.02 10^3/uL (0.0-0.2); Absolute Lymphocyte Count 1.36 10^3/uL (1.2-3.4); Absolute Monocyte Count 1.32 10^3/uL (0.1-0.8); Absolute Neutrophil Count 17.69 10^3/uL (1.2-6.7)
[2020-12-10 14:17] LABS: ALT 47 U/L (16-63); AST 27 U/L (15-37); Albumin 3.4 g/dL (3.4-5.0); Alkaline Phosphatase 123 U/L (46-116); BUN 22 mg/dL (7-18); Bilirubin, Total 0.3 mg/dL (0.2-1.0); CREATININE 1.4 mg/dL (0.70-1.30); Calcium 9.4 mg/dL (8.5-10.1); Chloride 102 mmol/L (98-107); Estimated GFR 50.86 (mL/min/1.73m2); FREE T4 0.94 ng/dL (0.76-1.46); Glucose 112 mg/dL (74-106); LDH 273 U/L (85-227); Potassium 4.9 mmol/L (3.5-5.1); Sodium 139 mmol/L (136-145); Total Protein 8.5 g/dL (6.4-8.2)
== END 2020-12-10 02:56 | disposition home or self-care (01) ==
PROVIDERS: PCP Emergency Medicine; Visit Provider Nurse Practitioner Adult Health
DX: C34.32 Malignant neoplasm of lower lobe, left bronchus or lung (principal); Z79.899 Other long term (current) drug therapy
CPT/HCPCS: 36415; 80053; 83615; 84439; 84443; 85025

== ENCOUNTER 2020-12-31 04:01 | Outpatient (CLI) | payer BC, SELFPAY ==
[2020-12-31 12:00] LABS: Abs Immature Grans 0.14 10^3/uL (0.0-0.06); Absolute Lymphocyte Count 1.48 10^3/uL (1.2-3.4); Absolute Neutrophil Count 15.22 10^3/uL (1.2-6.7); Basophils % 0.2; Eosinophils % 0.1; HCT 39.2 % (40.0-50.0); HGB 13.7 g/dL (13.5-17.5); Immature Grans % 0.7; Lymphocytes % 7.9; MCH 36.4 pg (27.0-33.0); MCHC 34.9 % (32.0-36.0); MCV 104.3 fL (80-95); MPV 9.5 fL (8.0-11.0); Monocytes % 9.7; Neutrophils % 81.4; Nucleated RBC 0 %; Platelet Count 475 10^3/uL (130-400); RBC 3.76 10^6/uL (4.36-5.78); RDW 14.1 % (11.8-14.1)
[2020-12-31 12:15] LABS: Absolute Basophil Count 0.04 10^3/uL (0.0-0.2); Absolute Eosinophil Count 0.02 10^3/uL (0.0-0.7); Absolute Monocyte Count 1.81 10^3/uL (0.1-0.8)
[2020-12-31 12:20] LABS: ALT 33 U/L (16-63); AST 27 U/L (15-37); Albumin 3.5 g/dL (3.4-5.0); Alkaline Phosphatase 124 U/L (46-116); Anion Gap 5.9 mmol/L (3-11); BUN 20 mg/dL (7-18); Bilirubin, Total 0.3 mg/dL (0.2-1.0); CO2 31.1 mmol/L (21.0-32.0); CREATININE 1.4 mg/dL (0.70-1.30); Calcium 9.5 mg/dL (8.5-10.1); Chloride 99 mmol/L (98-107); Estimated GFR 50.86 (mL/min/1.73m2); FREE T4 1.15 ng/dL (0.76-1.46); Glucose 108 mg/dL (74-106); LDH 279 U/L (85-227); Potassium 4.3 mmol/L (3.5-5.1); Sodium 136 mmol/L (136-145); TSH 0.89 uIU/mL (0.36-3.74); Total Protein 8.6 g/dL (6.4-8.2)
[2020-12-31 12:27] LABS: Diff Comment Diff Reviewed; Macrocytosis 1+
== END 2020-12-31 04:02 | disposition home or self-care (01) ==
PROVIDERS: PCP Emergency Medicine; Visit Provider Nurse Practitioner Adult Health
DX: C34.30 Malignant neoplasm of lower lobe, unspecified bronchus or lung (principal); Z79.899 Other long term (current) drug therapy
CPT/HCPCS: 36415; 80053; 83615; 84439; 84443; 85025

== ENCOUNTER 2021-01-16 01:44 | Outpatient (CLI) | payer BC, SELFPAY ==
[2021-01-16] MEDS: Breeza Beverage 473 ML BTL 946 ML PO (10:48)
[2021-01-16] MEDS: Omnipaque 350 MG/ML 100 ML BTL IJ (11:06)
[2021-01-16] MEDS: Normal Saline Flush 10 ML SYR IVP (11:07)
--- NOTE | 2021-01-16 11:07 | DI.CT_ITS ---
Exam(s) CT CHEST/ABD/PEL W EXAM: CT CHEST/ABD/PEL W CLINICAL HISTORY: LUNG CANCER BRAIN METS RESTAGING LT SIDED ABD PAIN TECHNIQUE: CT examination of the chest, abdomen, and pelvis was performed utilizing intravenous inf usion of 100 cc of Omnipaque 350 with biphasic hepatic imaging. Oral contrast was also administered. COMPARISON: CT CT CHEST W from 10/22/[address] CHEST W from 10/22/2020 FINDINGS: There are changes of COPD. A previously described left lower lobe treated lung carcinoma is again se en, no change in appearance comparison with examination of October 22.. No pleural effusion. There is a stable 5 millimeter in diameter pleural based left lower lobe intrapulmonary nodule at the leve l of the aortic arch period. No mediastinal or hilar adenopathy. Largest visible lymph node is a 2 cm in diameter right hilar nod e, grossly unchanged from prior study. No axillary or supraclavicular adenopathy. Tracheobronchial tree appears intact. No evidence of pulmonary embolic disease. Unremarkable appearance of thoracic aorta and major branch vessels except for extensive atheromatous calcification.. The liver appears normal with no focal hepatic lesion identified. Spleen is unremarkable in appearance. Pancreas appears intact. Adrenals appear normal. There are bilateral renal cysts and a nonobstructing right lower pole renal calculus. No solid mass lesion identified involving kidneys. No evidence of urinary tract calcification or obstruction.. Abdominal aortic wall is heavily calcified. There is a 3 cm in diameter infrarenal abdominal aortic aneurysm. There is extensive atheromatous calcifications of abdominal vasculature, question high-gra de stenosis superior mesenteric artery origin.. No focal bowel pathology. Appendix is normal. No evidence of diverticulitis. No abdominal or pelvic adenopathy. No significant abdominal wall hernia. No focal bony lesion identified on scanning of the chest, abdomen, and pelvis. IMPRESSION: Stable appearance of left lower lobe lung carcinoma. Stable 5 millimeter pleural based left lower lobe nodule at the level of the aortic arch. No evidence of new metastatic disease. RADIATION DOSE DELIVERED: 1,582.89mGy.cm Total DLP 1,582.89mGy.cm Total DLP CTDIvol RADIATION OPTIMIZATION: All CT scans at this facility use at least one of these dose optimization te chniques: automated exposure control; mA and/or kV adjustment per patient size (includes targeted exa ms where dose is matched to clinical indication); or iterative reconstruction.
== END 2021-01-16 02:04 ==
PROVIDERS: PCP Emergency Medicine; Visit Provider Internal Medicine Medical Oncology
DX: C34.30 Malignant neoplasm of lower lobe, unspecified bronchus or lung (principal); R91.1 Solitary pulmonary nodule
CPT/HCPCS: 74177; 71260; J3490

== ENCOUNTER 2021-01-21 03:01 | Outpatient (CLI) | payer BC, SELFPAY ==
[2021-01-21 10:21] LABS: Abs Immature Grans 0.04 10^3/uL (0.0-0.06); Absolute Basophil Count 0.06 10^3/uL (0.0-0.2); Absolute Eosinophil Count 0.26 10^3/uL (0.0-0.7); Absolute Lymphocyte Count 1.71 10^3/uL (1.2-3.4); Absolute Monocyte Count 1.22 10^3/uL (0.1-0.8); Absolute Neutrophil Count 5.98 10^3/uL (1.2-6.7); Basophils % 0.6; Eosinophils % 2.8; HCT 37.8 % (40.0-50.0); HGB 12.8 g/dL (13.5-17.5); Immature Grans % 0.4; Lymphocytes % 18.4; MCH 36.6 pg (27.0-33.0); MCHC 33.9 % (32.0-36.0); MPV 9.8 fL (8.0-11.0); Monocytes % 13.2; Neutrophils % 64.6; Nucleated RBC 0 %; Platelet Count 403 10^3/uL (130-400); RDW 14.3 % (11.8-14.1); WBC 9.27 10^3/uL (4.4-10.8)
[2021-01-21 10:45] LABS: ALT 31 U/L (16-63); AST 26 U/L (15-37); Albumin 3.1 g/dL (3.4-5.0); Alkaline Phosphatase 109 U/L (46-116); Anion Gap 4.7 mmol/L (3-11); BUN 12 mg/dL (7-18); Bilirubin, Total 0.3 mg/dL (0.2-1.0); CO2 31.3 mmol/L (21.0-32.0); CREATININE 1.4 mg/dL (0.70-1.30); Calcium 9.1 mg/dL (8.5-10.1); Chloride 103 mmol/L (98-107); Estimated GFR 50.86 (mL/min/1.73m2); FREE T4 1.04 ng/dL (0.76-1.46); Glucose 97 mg/dL (74-106); LDH 222 U/L (85-227); Potassium 4.5 mmol/L (3.5-5.1); Sodium 139 mmol/L (136-145); TSH 3.42 uIU/mL (0.36-3.74); Total Protein 7.6 g/dL (6.4-8.2)
== END 2021-01-21 03:02 | disposition home or self-care (01) ==
PROVIDERS: Internal Medicine Medical Oncology; PCP Emergency Medicine; Visit Provider Nurse Practitioner Adult Health
DX: C34.30 Malignant neoplasm of lower lobe, unspecified bronchus or lung (principal); Z79.899 Other long term (current) drug therapy
CPT/HCPCS: 36415; 80053; 83615; 84439; 84443; 85025

== ENCOUNTER 2021-02-11 01:08 | Outpatient (CLI) | payer BC, MEDICARE, SELFPAY ==
--- NOTE | 2021-02-11 | DI.MRI_ITS ---
Exam(s) MR BRAIN WO/W EXAM: MR BRAIN WO/W CLINICAL HISTORY: LUNG CA, C34.30,BRAIN METS,C79.31,S/P RADIATION,SURVEILLANCE SCAN. TECHNIQUE: Multiplanar multisequence MRI of the brain was performed. CONTRAST MATERIAL: IV Contrast: 17 ML of Dotarem contrast administered. COMPARISON: MR MR BRAIN WO/W from 11/06/2020 FINDINGS: VENTRICLES AND EXTRA AXIAL SPACES: Normal in size and morphology for the patient's age. HEMORRHAGE: None. CEREBRAL PARENCHYMA: No focus of restricted diffusion to suggest acute infarct. No space-occupying le larissa identified. Stable scattered punctate signal voids bilaterally MIDLINE SHIFT: None. BRAINSTEM/CEREBELLUM: Normal. CALVARIUM: Normal. ENHANCEMENT: No suspicious enhancement identified. VISUALIZED PARANASAL SINUSES/MASTOIDS: Clear. OTHER FINDINGS: None. IMPRESSION: Minimal microvascular changes. Stable scattered foci petechial areas of hemosiderin. No evidence of metastatic disease. DATA REPOSITORY:
[2021-02-11] MEDS: Normal Saline Flush 10 ML SYR IVP (15:10)
[2021-02-11] MEDS: Gadoterate meglumine 20 ML VIAL 17 ML IVP (15:11)
== END 2021-02-11 01:28 ==
PROVIDERS: PCP Emergency Medicine; Visit Provider Internal Medicine Medical Oncology
DX: C34.30 Malignant neoplasm of lower lobe, unspecified bronchus or lung (principal); C79.31 Secondary malignant neoplasm of brain; Z92.3 Personal history of irradiation
CPT/HCPCS: 70553

== ENCOUNTER 2021-02-18 04:04 | Outpatient (CLI) | payer BC, SELFPAY ==
[2021-02-18 09:09] LABS: Abs Immature Grans 0.03 10^3/uL (0.0-0.06); Absolute Basophil Count 0.09 10^3/uL (0.0-0.2); Absolute Eosinophil Count 0.41 10^3/uL (0.0-0.7); Absolute Lymphocyte Count 1.55 10^3/uL (1.2-3.4); Absolute Monocyte Count 1.15 10^3/uL (0.1-0.8); Absolute Neutrophil Count 5.45 10^3/uL (1.2-6.7); Eosinophils % 4.7; HGB 13.3 g/dL (13.5-17.5); Immature Grans % 0.3; Lymphocytes % 17.9; MCH 36.4 pg (27.0-33.0); MCHC 33.3 % (32.0-36.0); MCV 109.6 fL (80-95); MPV 9.4 fL (8.0-11.0); Monocytes % 13.2; Neutrophils % 62.9; Nucleated RBC 0 %; Platelet Count 264 10^3/uL (130-400); RBC 3.65 10^6/uL (4.36-5.78); RDW 13.3 % (11.8-14.1); RDW-SD 54.5 fL; WBC 8.68 10^3/uL (4.4-10.8)
[2021-02-18 09:30] LABS: ALT 23 U/L (16-63); AST 25 U/L (15-37); Albumin 3.2 g/dL (3.4-5.0); Alkaline Phosphatase 106 U/L (46-116); Anion Gap 4.9 mmol/L (3-11); BUN 19 mg/dL (7-18); Bilirubin, Total 0.3 mg/dL (0.2-1.0); CO2 30.1 mmol/L (21.0-32.0); CREATININE 1.2 mg/dL (0.70-1.30); Calcium 9.1 mg/dL (8.5-10.1); Chloride 102 mmol/L (98-107); FREE T4 1.03 ng/dL (0.76-1.46); Glucose 113 mg/dL (74-106); LDH 204 U/L (85-227); Potassium 4.1 mmol/L (3.5-5.1); Sodium 137 mmol/L (136-145); TSH 1.45 uIU/mL (0.36-3.74); Total Protein 7.8 g/dL (6.4-8.2)
== END 2021-02-18 04:05 | disposition home or self-care (01) ==
PROVIDERS: PCP Emergency Medicine; Visit Provider Nurse Practitioner Adult Health
DX: C34.32 Malignant neoplasm of lower lobe, left bronchus or lung (principal); Z79.899 Other long term (current) drug therapy
CPT/HCPCS: 36415; 80053; 83615; 84439; 84443; 85025

== ENCOUNTER 2021-03-18 03:33 | Outpatient (CLI) | payer BC, SELFPAY ==
[2021-03-18 13:07] LABS: Abs Immature Grans 0.02 10^3/uL (0.0-0.06); Absolute Basophil Count 0.09 10^3/uL (0.0-0.2); Absolute Eosinophil Count 0.33 10^3/uL (0.0-0.7); Absolute Lymphocyte Count 2.42 10^3/uL (1.2-3.4); Absolute Monocyte Count 0.99 10^3/uL (0.1-0.8); Absolute Neutrophil Count 4.53 10^3/uL (1.2-6.7); Basophils % 1.1; Eosinophils % 3.9; HCT 38.9 % (40.0-50.0); Immature Grans % 0.2; Lymphocytes % 28.9; MCH 35.7 pg (27.0-33.0); MCHC 33.4 % (32.0-36.0); MCV 106.9 fL (80-95); MPV 9.9 fL (8.0-11.0); Monocytes % 11.8; Neutrophils % 54.1; Nucleated RBC 0 %; Platelet Count 287 10^3/uL (130-400); RBC 3.64 10^6/uL (4.36-5.78); RDW 13.1 % (11.8-14.1); RDW-SD 51.8 fL; WBC 8.38 10^3/uL (4.4-10.8)
[2021-03-18 13:25] LABS: Diff Comment RBC Morph Reviewed
[2021-03-18 13:26] LABS: Macrocytosis 1+
[2021-03-18 13:33] LABS: ALT 30 U/L (16-63); AST 35 U/L (15-37); Albumin 2.8 g/dL (3.4-5.0); Alkaline Phosphatase 131 U/L (46-116); BUN 17 mg/dL (7-18); Bilirubin, Total 0.2 mg/dL (0.2-1.0); CREATININE 1.2 mg/dL (0.70-1.30); Calcium 9.3 mg/dL (8.5-10.1); Chloride 103 mmol/L (98-107); Glucose 95 mg/dL (74-106); LDH 211 U/L (85-227); Potassium 3.7 mmol/L (3.5-5.1); Sodium 139 mmol/L (136-145); Total Protein 8.2 g/dL (6.4-8.2)
[2021-03-18 13:55] LABS: FREE T4 1.18 ng/dL (0.76-1.46)
== END 2021-03-18 03:34 | disposition home or self-care (01) ==
LOC: LBO 03:33
PROVIDERS: Nurse Practitioner Adult Health; PCP Emergency Medicine; Visit Provider Internal Medicine Medical Oncology
DX: C34.30 Malignant neoplasm of lower lobe, unspecified bronchus or lung (principal); Z79.899 Other long term (current) drug therapy
CPT/HCPCS: 36415; 80053; 83615; 84439; 84443; 85025

== ENCOUNTER 2021-04-15 02:29 | Outpatient (CLI) | payer BC, SELFPAY | END 2021-04-15 02:30 | disposition home or self-care (01) | LOC: LBO 02:29 | PROVIDERS: PCP Emergency Medicine; Visit Provider Internal Medicine Medical Oncology ==

== ENCOUNTER 2021-04-16 01:52 | Outpatient (CLI) | payer BC, SELFPAY ==
[2021-04-16] MEDS: Omnipaque 350 MG/ML 100 ML BTL 70 ML IJ (10:26)
--- NOTE | 2021-04-16 10:27 | DI.CT_ITS ---
Exam(s) CT CHEST W EXAM: CT CHEST W CLINICAL HISTORY: LUNG CANCER C34.30 BRAIN METS C79.31 RESTAGING TECHNIQUE: COMPARISON: CT CT CHEST/ABD/PEL W from 01/16/2021 FINDINGS: CT examination of the chest was performed with a bolus infusion of 70 cc of Omnipaque 350. Current e xamination is compared with prior study of January 16 2021. Patient reportedly has treated left l ower lobe lung carcinoma. On today's examination, there are subtle peripheral ground-glass and reticular opacities which were n ot present on prior examination, please correlate regarding any history of infectious process. No ne w intrapulmonary nodule or mass is seen. The left lower lobe irregular mass is unchanged in appearan ce comparison with the prior examination. No new adenopathy identified in the mediastinum. 2 millim eter right hilar lymph node is unchanged. Slightly prominent aortopulmonary window node again noted. No new pleural effusion identified. No gross evidence of pulmonary embolic disease. Images obtained through the upper abdomen show unremarkable appearance of visualized portions of the liver. Spleen is unremarkable in appearance as is the pancreas. Nonobstructing right renal calculus noted. No adrenal mass identified. IMPRESSION: No gross interval change in appearance of left lower lobe lung carcinoma. No evidence of new metasta tic disease. Nonspecific peripheral bilateral reticular and ground-glass infiltrates noted, suspect inflammatory o r infectious process. Please correlate regarding any history of recent right COVID infection. RADIATION DOSE DELIVERED: 619.65mGy.cm Total DLP !Error CTDIvol RADIATION OPTIMIZATION: All CT scans at this facility use at least one of these dose optimization te chniques: automated exposure control; mA and/or kV adjustment per patient size (includes targeted exa ms where dose is matched to clinical indication); or iterative reconstruction.
== END 2021-04-16 02:12 ==
PROVIDERS: PCP Emergency Medicine; Visit Provider Internal Medicine Medical Oncology
DX: C34.32 Malignant neoplasm of lower lobe, left bronchus or lung (principal); C79.31 Secondary malignant neoplasm of brain; R91.8 Other nonspecific abnormal finding of lung field
CPT/HCPCS: 71260; J3490

== ENCOUNTER 2021-04-22 02:55 | Outpatient (CLI) | payer BC, SELFPAY ==
[2021-04-22 12:14] LABS: Abs Immature Grans 0.02 10^3/uL (0.0-0.06); Absolute Basophil Count 0.08 10^3/uL (0.0-0.2); Absolute Eosinophil Count 0.36 10^3/uL (0.0-0.7); Absolute Lymphocyte Count 2.46 10^3/uL (1.2-3.4); Absolute Monocyte Count 0.73 10^3/uL (0.1-0.8); Absolute Neutrophil Count 5.17 10^3/uL (1.2-6.7); Basophils % 0.9; Eosinophils % 4.1; HCT 42.5 % (40.0-50.0); HGB 14.5 g/dL (13.5-17.5); Immature Grans % 0.2; Lymphocytes % 27.9; MCHC 34.1 % (32.0-36.0); MCV 102.7 fL (80-95); MPV 9.6 fL (8.0-11.0); Monocytes % 8.3; Neutrophils % 58.6; Nucleated RBC 0 %; Platelet Count 282 10^3/uL (130-400); RBC 4.14 10^6/uL (4.36-5.78); RDW 11.9 % (11.8-14.1); RDW-SD 45.1 fL; WBC 8.82 10^3/uL (4.4-10.8)
[2021-04-22 12:34] LABS: ALT 20 U/L (16-63); AST 23 U/L (15-37); Albumin 3.3 g/dL (3.4-5.0); Alkaline Phosphatase 111 U/L (46-116); Anion Gap 10.6 mmol/L (3-11); BUN 13 mg/dL (7-18); Bilirubin, Total 0.4 mg/dL (0.2-1.0); CO2 24.4 mmol/L (21.0-32.0); CREATININE 1.3 mg/dL (0.70-1.30); Calcium 9.3 mg/dL (8.5-10.1); Chloride 102 mmol/L (98-107); FREE T4 1.09 ng/dL (0.76-1.46); Glucose 106 mg/dL (74-106); LDH 213 U/L (85-227); Sodium 137 mmol/L (136-145); Total Protein 8.2 g/dL (6.4-8.2)
== END 2021-04-22 02:56 | disposition home or self-care (01) ==
LOC: LBO 02:55
PROVIDERS: Nurse Practitioner Adult Health; PCP Emergency Medicine; Visit Provider Internal Medicine Medical Oncology
DX: C34.30 Malignant neoplasm of lower lobe, unspecified bronchus or lung (principal); Z79.899 Other long term (current) drug therapy
CPT/HCPCS: 36415; 80053; 83615; 84439; 84443; 85025

== ENCOUNTER 2021-05-15 00:28 | Outpatient (CLI) | payer BC, SELFPAY ==
--- NOTE | 2021-05-15 | DI.MRI_ITS ---
Exam(s) MR BRAIN WO/W EXAM: MR BRAIN WO/W CLINICAL HISTORY: NON SMALL CELL CA OF LOWER LOBE LUNG, C34.30 TECHNIQUE: Multiplanar multisequence MRI of the brain was performed. Both noninfused and contrast i nfused sequences were performed. IV Contrast injected was 16 cc Dotarem. COMPARISON: MR MR BRAIN WO/W from 02/11/2021 FINDINGS: CEREBRAL PARENCHYMA: No evidence of intracranial hemorrhage, mass effect nor shift of midline structu re. No extraaxial fluid collections. Ventricles are not enlarged nor shifted. On the present study there is a new enhancing lesion evident in the inferior left temporal lobe measu ring 1.1 by 0.9 cm with some surrounding edema and suspicious for metastatic disease, nonhemorrhagic. There are no other enhancing lesions in the brain and there is no abnormal meningeal enhancement, f ocal nor diffuse. However, on diffusion imaging there is a small focus of restricted diffusion in the right frontal lob e subcortical white matter which was not evident on the January 2021 study. This measures approxima tely 4 millimeters. There is no abnormal enhancement at this level No new findings in the cerebellar hemispheres nor within the armando, midbrain, and thalami. Previously described multiple foci of periventricular white matter signal abnormality are again noted. A few a few have increased but do not enhance and therefore unlikely to represent metastatic disease. PITUITARY GLAND: No mass nor parasellar abnormality. No obvious abnormality in the cavernous sinuses. FLOW VOIDS: The expected flow void are noted. No evidence of obvious aneurysm nor obvious vascular ma lformation. PARANASAL SINUSES: The visualized paranasal sinuses appear unremarkable. ORBITS: No obvious abnormal findings. IMPRESSION: 1. Compared to the prior MRI scan of 02/11/2021 there is now a new enhancing metastatic lesion in the inferior left temporal lobe with mild surrounding edema. There are no other enhancing lesions in th e brain. 2. On diffusion imaging there is a new tiny focus of restricted diffusion evident which is in the ri ght frontal cortex region. Suspect that this would possibly be embolic. There is no hemorrhage, enh ancement, nor surrounding edema at this level. DATA REPOSITORY:
[2021-05-15 12:53] LABS: Abs Immature Grans 0.02 10^3/uL (0.0-0.06); Absolute Basophil Count 0.08 10^3/uL (0.0-0.2); Absolute Eosinophil Count 0.55 10^3/uL (0.0-0.7); Absolute Lymphocyte Count 2.62 10^3/uL (1.2-3.4); Absolute Monocyte Count 0.93 10^3/uL (0.1-0.8); Absolute Neutrophil Count 4.26 10^3/uL (1.2-6.7); Basophils % 0.9; Eosinophils % 6.5; HCT 43.6 % (40.0-50.0); HGB 14.6 g/dL (13.5-17.5); Immature Grans % 0.2; MCH 34.3 pg (27.0-33.0); MCHC 33.5 % (32.0-36.0); MCV 102.3 fL (80-95); MPV 9.7 fL (8.0-11.0); Neutrophils % 50.4; Nucleated RBC 0 %; Platelet Count 274 10^3/uL (130-400); RBC 4.26 10^6/uL (4.36-5.78); RDW 11.7 % (11.8-14.1); RDW-SD 44.3 fL; WBC 8.46 10^3/uL (4.4-10.8)
[2021-05-15 13:08] LABS: ALT 21 U/L (16-63); AST 23 U/L (15-37); Albumin 3.5 g/dL (3.4-5.0); Alkaline Phosphatase 120 U/L (46-116); Anion Gap 4.6 mmol/L (3-11); BUN 17 mg/dL (7-18); Bilirubin, Total 0.3 mg/dL (0.2-1.0); CO2 30.4 mmol/L (21.0-32.0); CREATININE 1.4 mg/dL (0.70-1.30); Calcium 9.3 mg/dL (8.5-10.1); Chloride 102 mmol/L (98-107); Estimated GFR 50.86 (mL/min/1.73m2); Glucose 93 mg/dL (74-106); Potassium 4.3 mmol/L (3.5-5.1); Sodium 137 mmol/L (136-145); Total Protein 8.4 g/dL (6.4-8.2)
[2021-05-15] MEDS: Normal Saline Flush 10 ML SYR IVP (13:19)
[2021-05-15] MEDS: Gadoterate meglumine 20 ML VIAL 16 ML IVP (13:20)
[2021-05-16 14:16] LABS: HCV RNA Qualitative Undetected (Undetected)
== END 2021-05-15 00:48 ==
PROVIDERS: PCP Nurse Practitioner Family; Visit Provider Internal Medicine Medical Oncology
DX: C34.30 Malignant neoplasm of lower lobe, unspecified bronchus or lung (principal); C79.31 Secondary malignant neoplasm of brain
CPT/HCPCS: 70553; 80053; 87522; 83615; 84439; 84443; 85025

== ENCOUNTER 2021-05-15 02:38 | Outpatient (CLI) | payer BC, SELFPAY | END 2021-05-15 02:39 | disposition home or self-care (01) | LOC: LBO 02:38 | PROVIDERS: PCP Nurse Practitioner Family; Visit Provider Internal Medicine Medical Oncology ==

== ENCOUNTER 2021-05-20 03:41 | Outpatient (CLI) | payer BC, SELFPAY ==
[2021-05-20 10:15] LABS: Abs Immature Grans 0.02 10^3/uL (0.0-0.06); Absolute Basophil Count 0.12 10^3/uL (0.0-0.2); Absolute Lymphocyte Count 2.55 10^3/uL (1.2-3.4); Absolute Monocyte Count 0.88 10^3/uL (0.1-0.8); Absolute Neutrophil Count 4.96 10^3/uL (1.2-6.7); Basophils % 1.3; Eosinophils % 5.5; HCT 44.1 % (40.0-50.0); HGB 14.9 g/dL (13.5-17.5); Immature Grans % 0.2; Lymphocytes % 28.2; MCH 33.9 pg (27.0-33.0); MCHC 33.8 % (32.0-36.0); MCV 100.5 fL (80-95); MPV 9.5 fL (8.0-11.0); Monocytes % 9.7; Neutrophils % 55.1; Nucleated RBC 0 %; Platelet Count 289 10^3/uL (130-400); RBC 4.39 10^6/uL (4.36-5.78); RDW 11.5 % (11.8-14.1); RDW-SD 43.1 fL; WBC 9.03 10^3/uL (4.4-10.8)
[2021-05-20 10:33] LABS: ALT 22 U/L (16-63); AST 21 U/L (15-37); Albumin 3.5 g/dL (3.4-5.0); Alkaline Phosphatase 122 U/L (46-116); Anion Gap 8.6 mmol/L (3-11); BUN 15 mg/dL (7-18); Bilirubin, Total 0.4 mg/dL (0.2-1.0); CO2 24.4 mmol/L (21.0-32.0); CREATININE 1.3 mg/dL (0.70-1.30); Calcium 9.1 mg/dL (8.5-10.1); Chloride 103 mmol/L (98-107); Glucose 100 mg/dL (74-106); Magnesium 1.9 mg/dL (1.8-2.4); Sodium 136 mmol/L (136-145); Total Protein 8.2 g/dL (6.4-8.2)
[2021-05-22 14:43] LABS: HCV RNA Qualitative Undetected (Undetected)
== END 2021-05-20 03:42 | disposition home or self-care (01) ==
LOC: LBO 03:42
PROVIDERS: PCP Nurse Practitioner Family; Visit Provider Internal Medicine Medical Oncology
DX: C34.32 Malignant neoplasm of lower lobe, left bronchus or lung (principal); C79.31 Secondary malignant neoplasm of brain
CPT/HCPCS: 36415; 80053; 86803; 87522; 83735; 85025

== ENCOUNTER 2021-05-27 04:16 | Outpatient (CLI) | payer BC, SELFPAY ==
[2021-05-27 09:47] LABS: Abs Immature Grans 0.11 10^3/uL (0.0-0.06); Absolute Lymphocyte Count 1.19 10^3/uL (1.2-3.4); Absolute Monocyte Count 0.56 10^3/uL (0.1-0.8); Absolute Neutrophil Count 11.19 10^3/uL (1.2-6.7); Basophils % 0.2; HCT 42.6 % (40.0-50.0); HGB 14.3 g/dL (13.5-17.5); Immature Grans % 0.8; Lymphocytes % 9.1; MCH 33.9 pg (27.0-33.0); MCHC 33.6 % (32.0-36.0); MCV 100.9 fL (80-95); MPV 9.6 fL (8.0-11.0); Monocytes % 4.3; Neutrophils % 85.6; Nucleated RBC 0 %; Platelet Count 289 10^3/uL (130-400); RBC 4.22 10^6/uL (4.36-5.78); RDW 11.8 % (11.8-14.1); RDW-SD 43.5 fL; WBC 13.07 10^3/uL (4.4-10.8)
[2021-05-27 09:48] LABS: Absolute Basophil Count 0.03 10^3/uL (0.0-0.2)
[2021-05-27 10:00] LABS: ALT 22 U/L (16-63); AST 19 U/L (15-37); Albumin 3.5 g/dL (3.4-5.0); Alkaline Phosphatase 121 U/L (46-116); Anion Gap 7.2 mmol/L (3-11); BUN 21 mg/dL (7-18); Bilirubin, Total 0.3 mg/dL (0.2-1.0); CO2 27.8 mmol/L (21.0-32.0); CREATININE 1.3 mg/dL (0.70-1.30); Calcium 9.3 mg/dL (8.5-10.1); Chloride 101 mmol/L (98-107); Glucose 117 mg/dL (74-106); Potassium 4.3 mmol/L (3.5-5.1); Sodium 136 mmol/L (136-145); Total Protein 8.1 g/dL (6.4-8.2)
== END 2021-05-27 04:17 | disposition home or self-care (01) ==
LOC: LBO 04:16
PROVIDERS: PCP Nurse Practitioner Family; Visit Provider Internal Medicine Medical Oncology
DX: C34.32 Malignant neoplasm of lower lobe, left bronchus or lung (principal); C79.31 Secondary malignant neoplasm of brain
CPT/HCPCS: 36415; 80053; 83735; 85025

== ENCOUNTER → 2021-06-11 00:42 | Outpatient (CLI) | payer BC, SELFPAY ==
--- NOTE | 2021-06-11 15:40 | DI.CT_ITS ---
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 TECHNIQUE: Multi planar reconstructions were performed. CONTRAST MATERIAL: Omnipaque 350; 70 cc COMPARISON: CT CT CHEST W from 04/16/2021 FINDINGS: CHEST: LUNGS: The right lung is presently clear. Previously present peripheral infiltrates have resolved. There are no new focal findings in the right lung nor pleural effusion. In the opposite-left lung small benign-appearing focus of pleural thickening in superior segment of t he left lower lobe is unchanged. There has been significant improvement in the peripheral infiltrate in the upper left lower lobe although not completely. In the lateral aspect of the left lower lobe the infiltrates have significantly improved with the exception of persistent spiculated density in th e lateral basal segment region which persists, similar to previous. No associated pleural effusion o n either side. No new findings in the trachea and mainstem bronchi. MEDIASTINUM: There is presently no hilar nor mediastinal adenopathy. A small subcarinal lymph node i s again noted. No retro pleural adenopathy. No axillary nor supraclavicular adenopathy. Visualized thyroid unremarkable. CARDIAC: Heart size is normal. There is no pericardial effusion.Caliber of the thoracic aorta is wit hin normal limits. VISUALIZED UPPER ABDOMEN:No adrenal masses. Nephrolithiasis again noted as is a cyst in the kidney. No obvious new metastatic lesions evident in the partially visualized upper liver. Spleen size norm al. OSSEOUS: No significant osseous lesions.. IMPRESSION: 1. Compared to the prior CT scan of 04/16/2021 there has been significant improvement in bilateral re ticular infiltrates which are seen more probably infectious. The spiculated nodular infiltrate in th e left lower lobe is unchanged. No new additional pulmonary findings and there are no pleural effusi ons. 2. No new significant hilar nor mediastinal adenopathy. RADIATION DOSE DELIVERED: 689.13mGy.cm Total DLP DATA REPOSITORY: All CT scans at this facility are submitted to the National Radiology Data Registry (NRDR) Dose Index Registry (DIR) with the [employer] (ACR). RADIATION OPTIMIZATION: All CT scans at this facility use at least one of these dose optimization te chniques: automated exposure control; mA and/or kV adjustment per patient size (includes targeted exa ms where dose is matched to clinical indication); or iterative reconstruction.
[2021-06-11] MEDS: Omnipaque 350 MG/ML 100 ML BTL IJ (15:48)
[2021-06-11] MEDS: Normal Saline Flush 10 ML SYR IVP (15:49)
== END ==
PROVIDERS: PCP Nurse Practitioner Family; Visit Provider Internal Medicine Medical Oncology
DX: C34.32 Malignant neoplasm of lower lobe, left bronchus or lung (principal); C79.31 Secondary malignant neoplasm of brain; R91.8 Other nonspecific abnormal finding of lung field
CPT/HCPCS: 71260; J3490

== ENCOUNTER 2021-06-17 04:42 | Outpatient (CLI) | payer BC, SELFPAY ==
[2021-06-17 09:52] LABS: Abs Immature Grans 0.03 10^3/uL (0.0-0.06); Absolute Basophil Count 0.06 10^3/uL (0.0-0.2); Absolute Lymphocyte Count 1.97 10^3/uL (1.2-3.4); Absolute Monocyte Count 0.85 10^3/uL (0.1-0.8); Absolute Neutrophil Count 4.72 10^3/uL (1.2-6.7); Basophils % 0.7; HCT 49.4 % (40.0-50.0); HGB 16.4 g/dL (13.5-17.5); Immature Grans % 0.4; Lymphocytes % 24.5; MCH 33.6 pg (27.0-33.0); MCHC 33.2 % (32.0-36.0); MCV 101.2 fL (80-95); MPV 9.6 fL (8.0-11.0); Monocytes % 10.6; Neutrophils % 58.8; Platelet Count 200 10^3/uL (130-400); RBC 4.88 10^6/uL (4.36-5.78); RDW 12.3 % (11.8-14.1); RDW-SD 46.3 fL; WBC 8.03 10^3/uL (4.4-10.8)
[2021-06-17 10:05] LABS: ALT 35 U/L (16-63); AST 24 U/L (15-37); Albumin 3.2 g/dL (3.4-5.0); Alkaline Phosphatase 123 U/L (46-116); Anion Gap 0.8 mmol/L (3-11); BUN 21 mg/dL (7-18); Bilirubin, Total 0.4 mg/dL (0.2-1.0); CO2 30.2 mmol/L (21.0-32.0); CREATININE 1.3 mg/dL (0.70-1.30); Chloride 101 mmol/L (98-107); Glucose 107 mg/dL (74-106); Magnesium 2.1 mg/dL (1.8-2.4); Potassium 4.5 mmol/L (3.5-5.1); Sodium 132 mmol/L (136-145); Total Protein 7.7 g/dL (6.4-8.2)
== END 2021-06-17 04:43 | disposition home or self-care (01) ==
LOC: LBO 04:43
PROVIDERS: PCP Nurse Practitioner Family; Visit Provider Internal Medicine Medical Oncology
DX: B19.20 Unspecified viral hepatitis C without hepatic coma (principal); C34.90 Malignant neoplasm of unspecified part of unspecified bronchus or lung
CPT/HCPCS: 36415; 80053; 86803; 83735; 85025

== ENCOUNTER → 2021-09-06 00:44 | Outpatient (CLI) | payer BC, SELFPAY ==
[2021-09-06 13:44] LABS: Abs Immature Grans 0.04 10^3/uL (0.0-0.06); Absolute Eosinophil Count 0.25 10^3/uL (0.0-0.7); Absolute Monocyte Count 1.05 10^3/uL (0.1-0.8); Basophils % 0.9; Eosinophils % 2.2; Immature Grans % 0.3; Lymphocytes % 26.2; MCH 32.3 pg (27.0-33.0); MCHC 34.1 % (32.0-36.0); MCV 95 fL (80-95); MPV 9.7 fL (8.0-11.0); Monocytes % 9.2; Neutrophils % 61.2; Platelet Count 274 10^3/uL (130-400); RBC 4.65 10^6/uL (4.36-5.78); RDW 12.5 % (11.8-14.1); RDW-SD 43.4 fL; WBC 11.44 10^3/uL (4.4-10.8)
[2021-09-06 13:59] LABS: ALT 19 U/L (16-63); AST 20 U/L (15-37); Albumin 3.5 g/dL (3.4-5.0); Alkaline Phosphatase 100 U/L (46-116); Anion Gap 9.8 mmol/L (3-11); BUN 17 mg/dL (7-18); Bilirubin, Total 0.4 mg/dL (0.2-1.0); CO2 26.2 mmol/L (21.0-32.0); CREATININE 1.3 mg/dL (0.70-1.30); Calcium 9.1 mg/dL (8.5-10.1); Chloride 100 mmol/L (98-107); Estimated GFR 55.23 (mL/min/1.73m2); Glucose 91 mg/dL (74-106); Magnesium 1.7 mg/dL (1.8-2.4); Potassium 4.1 mmol/L (3.5-5.1); Sodium 136 mmol/L (136-145); Total Protein 7.5 g/dL (6.4-8.2)
--- NOTE | 2021-09-06 14:25 | DI.CT_ITS ---
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 COMPARISON: CT CT CHEST/ABD/PEL W from 01/16/[address] CHEST W from 06/11/2021 FINDINGS: Tracheobronchial tree: Patent where visualized. Pulmonary parenchyma: There has been no change in the spiculated masslike area in the left lower lobe . No focal consolidating infiltrates are seen. Mild centrilobular emphysematous changes are present in the lungs. Mediastinum and Sammie: No dominant adenopathy or fluid collection. The esophagus is unremarkable. Thyroid gland: Unremarkable. Pleura: No effusion or pneumothorax. Heart: The heart is not dilated. Coronary artery calcifications are present. No pericardial effusion . Aorta: Thoracic aorta non-dilated. Atherosclerosis is present. Pulmonary arteries: The pulmonary arteries are inadequately opacified for evaluation of pulmonary emb jaswinder. Upper abdomen: There is again seen a cyst in the left kidney. There is thickening of the limbs of t he left adrenal gland. It appears more prominent compared to the CT scan from 06/11/2021. Lymph nodes: Within normal limits. Bones: Within normal limits for the patient's age. Soft tissues: Mild gynecomastia is present. IMPRESSION: 1. No change in appearance of the spiculated opacity in the left lower lobe. 2. Mild centrilobular emphysema. 3. Increase thickening of the limbs of the left adrenal gland. It now has a nodular appearance and m easures 1.5 by 2.1 cm. Metastasis should be considered. RADIATION DOSE DELIVERED: 522.21mGy.cm Total DLP DATA REPOSITORY: All CT scans at this facility are submitted to the National Radiology Data Registry (NRDR) Dose Index Registry (DIR) with the [employer] (ACR). RADIATION OPTIMIZATION: All CT scans at this facility use at least one of these dose optimization te chniques: automated exposure control; mA and/or kV adjustment per patient size (includes targeted exa ms where dose is matched to clinical indication); or iterative reconstruction.
[2021-09-06] MEDS: Omnipaque 350 MG/ML 100 ML BTL 70 ML IJ (14:36)
[2021-09-09 11:53] LABS: Hepatitis C Ab w Rflx HCV PCR Reactive (Negative)
[2021-09-11 14:33] LABS: HCV RNA Qualitative Undetected (Undetected)
== END ==
PROVIDERS: PCP Nurse Practitioner Family; Visit Provider Internal Medicine Medical Oncology
DX: C34.30 Malignant neoplasm of lower lobe, unspecified bronchus or lung (principal); C79.31 Secondary malignant neoplasm of brain; J43.2 Centrilobular emphysema; E27.8 Other specified disorders of adrenal gland
CPT/HCPCS: 80053; 86803; 87522; 71260; 83735; 85025; J3490

== ENCOUNTER 2021-09-16 14:12 | Outpatient (CLI) | payer BC, MEDICARE, SELFPAY ==
[2021-09-16 13:31] LABS: Abs Immature Grans 0.05 10^3/uL (0.0-0.06); Absolute Eosinophil Count 0.43 10^3/uL (0.0-0.7); Absolute Neutrophil Count 6.46 10^3/uL (1.2-6.7); Basophils % 0.9; Eosinophils % 3.8; HCT 46.7 % (40.0-50.0); Immature Grans % 0.4; Lymphocytes % 27.6; MCH 32.2 pg (27.0-33.0); MCHC 34.3 % (32.0-36.0); MCV 94 fL (80-95); MPV 9.6 fL (8.0-11.0); Monocytes % 9.8; Neutrophils % 57.5; Platelet Count 287 10^3/uL (130-400); RBC 4.97 10^6/uL (4.36-5.78); RDW 12.2 % (11.8-14.1); RDW-SD 42.5 fL; WBC 11.24 10^3/uL (4.4-10.8)
[2021-09-16 13:58] LABS: ALT 20 U/L (16-63); AST 20 U/L (15-37); Albumin 3.5 g/dL (3.4-5.0); Alkaline Phosphatase 108 U/L (46-116); Anion Gap 5.7 mmol/L (3-11); BUN 16 mg/dL (7-18); Bilirubin, Total 0.4 mg/dL (0.2-1.0); CO2 27.3 mmol/L (21.0-32.0); CREATININE 1.3 mg/dL (0.70-1.30); Calcium 9.5 mg/dL (8.5-10.1); Chloride 99 mmol/L (98-107); Estimated GFR 55.23 (mL/min/1.73m2); Glucose 96 mg/dL (74-106); Magnesium 1.9 mg/dL (1.8-2.4); Potassium 3.9 mmol/L (3.5-5.1); Sodium 132 mmol/L (136-145); Total Protein 7.9 g/dL (6.4-8.2)
[2021-09-16 17:10] LABS: FREE T4 0.95 ng/dL (0.76-1.46); TSH 1.08 uIU/mL (0.36-3.74)
[2021-09-18 13:06] LABS: HCV RNA Qualitative Undetected (Undetected)
== END 2021-09-16 14:13 | disposition home or self-care (01) ==
LOC: LBO 14:15
PROVIDERS: PCP Nurse Practitioner Family; Visit Provider Internal Medicine Medical Oncology
DX: C79.31 Secondary malignant neoplasm of brain (principal); C34.30 Malignant neoplasm of lower lobe, unspecified bronchus or lung; Z79.899 Other long term (current) drug therapy
CPT/HCPCS: 36415; 80053; 87522; 83735; 84439; 84443; 85025

== ENCOUNTER 2021-10-21 04:29 | Outpatient (CLI) | payer BC, MEDICARE, SELFPAY ==
[2021-10-21 10:06] LABS: Abs Immature Grans 0.08 10^3/uL (0.0-0.06); Absolute Basophil Count 0.05 10^3/uL (0.0-0.2); Absolute Eosinophil Count 0.13 10^3/uL (0.0-0.7); Absolute Lymphocyte Count 2.29 10^3/uL (1.2-3.4); Absolute Neutrophil Count 9.82 10^3/uL (1.2-6.7); Basophils % 0.4; HCT 42.1 % (40.0-50.0); HGB 14.5 g/dL (13.5-17.5); Immature Grans % 0.6; Lymphocytes % 17.1; MCH 32.7 pg (27.0-33.0); MCHC 34.4 % (32.0-36.0); MCV 95 fL (80-95); MPV 9.6 fL (8.0-11.0); Monocytes % 7.5; Neutrophils % 73.4; Platelet Count 313 10^3/uL (130-400); RBC 4.43 10^6/uL (4.36-5.78); RDW 13.8 % (11.8-14.1); RDW-SD 47.5 fL; WBC 13.38 10^3/uL (4.4-10.8)
[2021-10-21 10:31] LABS: ALT 29 U/L (16-63); AST 20 U/L (15-37); Albumin 3.2 g/dL (3.4-5.0); Alkaline Phosphatase 108 U/L (46-116); Anion Gap 8.1 mmol/L (3-11); BUN 19 mg/dL (7-18); Bilirubin, Total 0.2 mg/dL (0.2-1.0); CO2 26.9 mmol/L (21.0-32.0); CREATININE 1.4 mg/dL (0.70-1.30); Calcium 9.1 mg/dL (8.5-10.1); Chloride 101 mmol/L (98-107); FREE T4 0.93 ng/dL (0.76-1.46); Glucose 106 mg/dL (74-106); Potassium 4.1 mmol/L (3.5-5.1); Sodium 136 mmol/L (136-145); TSH 0.84 uIU/mL (0.36-3.74); Total Protein 7.3 g/dL (6.4-8.2)
== END 2021-10-21 04:30 | disposition home or self-care (01) ==
LOC: LBO 04:29
PROVIDERS: PCP Nurse Practitioner Family; Visit Provider Internal Medicine Medical Oncology
DX: C34.30 Malignant neoplasm of lower lobe, unspecified bronchus or lung (principal); C79.31 Secondary malignant neoplasm of brain; Z79.899 Other long term (current) drug therapy
CPT/HCPCS: 36415; 80053; 84439; 84443; 85025

== ENCOUNTER 2021-11-11 03:21 | Outpatient (CLI) | payer BC, MEDICARE, SELFPAY ==
[2021-11-11 10:01] LABS: Abs Immature Grans 0.12 10^3/uL (0.0-0.06); Absolute Basophil Count 0.05 10^3/uL (0.0-0.2); Absolute Eosinophil Count 0.49 10^3/uL (0.0-0.7); Absolute Lymphocyte Count 2.27 10^3/uL (1.2-3.4); Absolute Neutrophil Count 6.91 10^3/uL (1.2-6.7); Basophils % 0.4; Eosinophils % 4.3; HGB 16.2 g/dL (13.5-17.5); Immature Grans % 1.1; MCH 32.9 pg (27.0-33.0); MCHC 33.8 % (32.0-36.0); MCV 98 fL (80-95); MPV 9.7 fL (8.0-11.0); Monocytes % 13.2; Platelet Count 287 10^3/uL (130-400); RBC 4.92 10^6/uL (4.36-5.78); RDW-SD 54.9 fL; WBC 11.33 10^3/uL (4.4-10.8)
[2021-11-11 10:40] LABS: ALT 65 U/L (16-63); AST 30 U/L (15-37); Albumin 3.3 g/dL (3.4-5.0); Alkaline Phosphatase 122 U/L (46-116); Anion Gap 10.4 mmol/L (3-11); BUN 17 mg/dL (7-18); Bilirubin, Total 0.4 mg/dL (0.2-1.0); CO2 24.6 mmol/L (21.0-32.0); CREATININE 1.4 mg/dL (0.70-1.30); Calcium 9.2 mg/dL (8.5-10.1); Chloride 100 mmol/L (98-107); Estimated GFR 55.43 (mL/min/1.73m2); FREE T4 1.14 ng/dL (0.76-1.46); Glucose 123 mg/dL (74-106); Magnesium 1.9 mg/dL (1.8-2.4); Potassium 4.1 mmol/L (3.5-5.1); Sodium 135 mmol/L (136-145); TSH 1.73 uIU/mL (0.36-3.74); Total Protein 7.6 g/dL (6.4-8.2)
== END 2021-11-11 03:22 | disposition home or self-care (01) ==
LOC: LBO 03:21
PROVIDERS: PCP Nurse Practitioner Family; Visit Provider Internal Medicine Medical Oncology
DX: C34.30 Malignant neoplasm of lower lobe, unspecified bronchus or lung (principal); C79.31 Secondary malignant neoplasm of brain
CPT/HCPCS: 36415; 80053; 83735; 84439; 84443; 85025

== ENCOUNTER 2021-12-02 02:50 | Outpatient (CLI) | payer BC, MEDICARE, SELFPAY ==
[2021-12-02 10:24] LABS: Absolute Eosinophil Count 0.44 10^3/uL (0.0-0.7); Absolute Monocyte Count 1.56 10^3/uL (0.1-0.8); Absolute Neutrophil Count 6.17 10^3/uL (1.2-6.7); Eosinophils % 3.8; HCT 43.9 % (40.0-50.0); HGB 14.9 g/dL (13.5-17.5); Immature Grans % 0.9; Lymphocytes % 26.9; MCH 34.2 pg (27.0-33.0); MCHC 33.9 % (32.0-36.0); MCV 101 fL (80-95); MPV 9.4 fL (8.0-11.0); Monocytes % 13.6; Neutrophils % 53.8; Platelet Count 467 10^3/uL (130-400); RBC 4.36 10^6/uL (4.36-5.78); RDW 16.2 % (11.8-14.1); RDW-SD 58.2 fL; WBC 11.47 10^3/uL (4.4-10.8)
[2021-12-02 10:29] LABS: Absolute Basophil Count 0.11 10^3/uL (0.0-0.2); Absolute Lymphocyte Count 3.09 10^3/uL (1.2-3.4)
[2021-12-02 10:50] LABS: ALT 34 U/L (16-63); AST 32 U/L (15-37); Albumin 3.4 g/dL (3.4-5.0); Alkaline Phosphatase 135 U/L (46-116); Anion Gap 4.2 mmol/L (3-11); BUN 15 mg/dL (7-18); Bilirubin, Total 0.2 mg/dL (0.2-1.0); CO2 30.8 mmol/L (21.0-32.0); CREATININE 1.7 mg/dL (0.70-1.30); Calcium 9.7 mg/dL (8.5-10.1); Chloride 103 mmol/L (98-107); Estimated GFR 43.91 (mL/min/1.73m2); FREE T4 0.95 ng/dL (0.76-1.46); Glucose 108 mg/dL (74-106); Potassium 4.7 mmol/L (3.5-5.1); Sodium 138 mmol/L (136-145); TSH 2.98 uIU/mL (0.36-3.74); Total Protein 8.3 g/dL (6.4-8.2)
[2021-12-02 10:57] LABS: Diff Comment Diff Reviewed; RBC Morphology Normal
== END 2021-12-02 02:51 | disposition home or self-care (01) ==
LOC: LBO 02:50
PROVIDERS: PCP Nurse Practitioner Family; Visit Provider Internal Medicine Medical Oncology
DX: C34.32 Malignant neoplasm of lower lobe, left bronchus or lung (principal); Z79.899 Other long term (current) drug therapy; C79.31 Secondary malignant neoplasm of brain
CPT/HCPCS: 36415; 80053; 83735; 84439; 84443; 85025

== ENCOUNTER 2021-12-23 02:49 | Outpatient (CLI) | payer BC, SELFPAY ==
[2021-12-23 10:50] LABS: Absolute Lymphocyte Count 2.99 10^3/uL (1.2-3.4); Absolute Monocyte Count 1.68 10^3/uL (0.1-0.8); Absolute Neutrophil Count 8.53 10^3/uL (1.2-6.7); Basophils % 0.7; Eosinophils % 3.6; HCT 42.7 % (40.0-50.0); HGB 14.2 g/dL (13.5-17.5); Immature Grans % 0.7; Lymphocytes % 21.5; MCH 33.6 pg (27.0-33.0); MCHC 33.3 % (32.0-36.0); MCV 101 fL (80-95); MPV 9.5 fL (8.0-11.0); Monocytes % 12.1; Neutrophils % 61.4; Platelet Count 520 10^3/uL (130-400); RBC 4.23 10^6/uL (4.36-5.78); RDW-SD 61.1 fL
[2021-12-23 11:39] LABS: ALT 22 U/L (16-63); AST 26 U/L (15-37); Albumin 3.2 g/dL (3.4-5.0); Alkaline Phosphatase 136 U/L (46-116); Anion Gap 6.4 mmol/L (3-11); BUN 22 mg/dL (7-18); Bilirubin, Total 0.3 mg/dL (0.2-1.0); CO2 29.6 mmol/L (21.0-32.0); Calcium 9.6 mg/dL (8.5-10.1); Chloride 103 mmol/L (98-107); Estimated GFR 36.13 (mL/min/1.73m2); FREE T4 1.01 ng/dL (0.76-1.46); Glucose 107 mg/dL (74-106); Magnesium 1.9 mg/dL (1.8-2.4); Potassium 4.4 mmol/L (3.5-5.1); Sodium 139 mmol/L (136-145); TSH 1.24 uIU/mL (0.36-3.74); Total Protein 8.7 g/dL (6.4-8.2)
== END 2021-12-23 02:50 | disposition home or self-care (01) ==
LOC: LBO 03:02
PROVIDERS: PCP Nurse Practitioner Family; Visit Provider Internal Medicine Medical Oncology
DX: C34.32 Malignant neoplasm of lower lobe, left bronchus or lung (principal); Z79.899 Other long term (current) drug therapy; C79.31 Secondary malignant neoplasm of brain
CPT/HCPCS: 36415; 80053; 83735; 84439; 84443; 85025

== ENCOUNTER 2022-01-10 00:23 | Outpatient (CLI) | payer BC, SELFPAY ==
--- NOTE | 2022-01-10 | DI.CT_ITS ---
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 TECHNIQUE: Multi planar reconstructions were performed. CONTRAST MATERIAL: Omnipaque 350; 75 cc COMPARISON: CT CT CHEST W from 11/27/2021 FINDINGS: CHEST: LUNGS: Previously described spiculated infiltrate in the lateral basal segment of the left lower lobe is again noted. This appears similar in size. However, there is increasing infiltrate in the adjac ent lateral basal and posterior basal segments of the left lower lobe. No associated pleural effusio n. Higher up in the superior segment of the left lower lobe there is a 3 millimeter pleural based de nsity which is unchanged. No new findings in the left upper lobe and lingular segment. Right lung exhibits no new significant findings. No findings in trachea and mainstem bronchi. MEDIASTINUM: No obvious new hilar adenopathy. No subcarinal adenopathy. No new adenopathy in the an terior mesenteric fat nor in the aortopulmonic window. Visualized thyroid unremarkable. CARDIAC: Heart size is normal. There is no pericardial effusion.Caliber of the thoracic aorta is wit hin normal limits. VISUALIZED UPPER ABDOMEN:Left adrenal mass again noted and appears unchanged. Nevertheless, suspicio us for metastatic disease.. Right adrenal gland remains unremarkable. Spleen size normal. OSSEOUS: No significant osseous lesions.. IMPRESSION: 1. Compared to the CT scan of 11/27/2021 the spiculated infiltrate in the left lower lobe appears rel atively stable but there is some increased infiltrate adjacent to this area in the lateral basal and posterior basal segments of the left lower lobe. No associated pleural effusion and no increasing hi lar nor mediastinal adenopathy. 2. Stable appearance of the concerning left adrenal nodule which is suspicious for metastatic disease . Right adrenal gland remains unremarkable. RADIATION DOSE DELIVERED: Total DLP DATA REPOSITORY: All CT scans at this facility are submitted to the National Radiology Data Registry (NRDR) Dose Index Registry (DIR) with the [employer] (ACR). RADIATION OPTIMIZATION: All CT scans at this facility use at least one of these dose optimization te chniques: automated exposure control; mA and/or kV adjustment per patient size (includes targeted exa ms where dose is matched to clinical indication); or iterative reconstruction.
[2022-01-10 11:37] LABS: ALT 18 U/L (16-63); AST 22 U/L (15-37); Albumin 3.6 g/dL (3.4-5.0); Alkaline Phosphatase 125 U/L (46-116); Anion Gap 7.9 mmol/L (3-11); BUN 20 mg/dL (7-18); Bilirubin, Total 0.4 mg/dL (0.2-1.0); CO2 29.1 mmol/L (21.0-32.0); CREATININE 1.7 mg/dL (0.70-1.30); Calcium 9.5 mg/dL (8.5-10.1); Chloride 99 mmol/L (98-107); Estimated GFR 43.91 (mL/min/1.73m2); Glucose 99 mg/dL (74-106); Potassium 4.3 mmol/L (3.5-5.1); Sodium 136 mmol/L (136-145); Total Protein 8.7 g/dL (6.4-8.2)
== END 2022-01-10 00:43 ==
PROVIDERS: PCP Nurse Practitioner Family; Visit Provider Internal Medicine Medical Oncology
DX: C34.30 Malignant neoplasm of lower lobe, unspecified bronchus or lung (principal); C79.31 Secondary malignant neoplasm of brain
CPT/HCPCS: 36415; 80053; 71260

== ENCOUNTER 2022-01-13 02:49 | Outpatient (CLI) | payer BC, SELFPAY ==
[2022-01-13 13:26] LABS: Abs Immature Grans 0.04 10^3/uL (0.0-0.06); Absolute Basophil Count 0.12 10^3/uL (0.0-0.2); Absolute Eosinophil Count 0.64 10^3/uL (0.0-0.7); Absolute Lymphocyte Count 2.37 10^3/uL (1.2-3.4); Absolute Monocyte Count 1.43 10^3/uL (0.1-0.8); Basophils % 0.9; Eosinophils % 4.7; HCT 42.7 % (40.0-50.0); HGB 14.5 g/dL (13.5-17.5); Immature Grans % 0.3; Lymphocytes % 17.4; MCH 34.3 pg (27.0-33.0); MCV 101 fL (80-95); MPV 9.6 fL (8.0-11.0); Monocytes % 10.5; Neutrophils % 66.2; Platelet Count 320 10^3/uL (130-400); RBC 4.23 10^6/uL (4.36-5.78); RDW 15.7 % (11.8-14.1); RDW-SD 58.8 fL; WBC 13.63 10^3/uL (4.4-10.8)
[2022-01-13 13:27] LABS: Absolute Neutrophil Count 9.02 10^3/uL (1.2-6.7)
[2022-01-13 13:51] LABS: ALT 15 U/L (16-63); AST 26 U/L (15-37); Albumin 3.7 g/dL (3.4-5.0); Alkaline Phosphatase 115 U/L (46-116); Anion Gap 10.5 mmol/L (3-11); BUN 19 mg/dL (7-18); Bilirubin, Total 0.5 mg/dL (0.2-1.0); CO2 25.5 mmol/L (21.0-32.0); Calcium 9.8 mg/dL (8.5-10.1); Chloride 99 mmol/L (98-107); Estimated GFR 36.13 (mL/min/1.73m2); FREE T4 1.13 ng/dL (0.76-1.46); Glucose 92 mg/dL (74-106); Magnesium 1.9 mg/dL (1.8-2.4); Potassium 4.1 mmol/L (3.5-5.1); Sodium 135 mmol/L (136-145); TSH 3.02 uIU/mL (0.36-3.74); Total Protein 8.9 g/dL (6.4-8.2)
== END 2022-01-13 02:50 | disposition home or self-care (01) ==
LOC: LBO 02:49
PROVIDERS: PCP Nurse Practitioner Family; Visit Provider Internal Medicine Medical Oncology
DX: C34.32 Malignant neoplasm of lower lobe, left bronchus or lung (principal); Z79.899 Other long term (current) drug therapy; C79.31 Secondary malignant neoplasm of brain
CPT/HCPCS: 36415; 80053; 83735; 84439; 84443; 85025

== ENCOUNTER 2022-02-03 03:18 | Outpatient (CLI) | payer BC, SELFPAY ==
[2022-02-03 09:28] LABS: Abs Immature Grans 0.05 10^3/uL (0.0-0.06); Absolute Eosinophil Count 0.96 10^3/uL (0.0-0.7); Absolute Lymphocyte Count 2.55 10^3/uL (1.2-3.4); Absolute Monocyte Count 1.27 10^3/uL (0.1-0.8); Eosinophils % 8.4; HCT 41.3 % (40.0-50.0); HGB 14.2 g/dL (13.5-17.5); Immature Grans % 0.4; Lymphocytes % 22.3; MCH 34.5 pg (27.0-33.0); MCHC 34.4 % (32.0-36.0); MCV 101 fL (80-95); MPV 9.3 fL (8.0-11.0); Monocytes % 11.1; Neutrophils % 56.8; Platelet Count 323 10^3/uL (130-400); RBC 4.11 10^6/uL (4.36-5.78); RDW 13.7 % (11.8-14.1); RDW-SD 50.8 fL; WBC 11.44 10^3/uL (4.4-10.8)
[2022-02-03 09:29] LABS: Absolute Basophil Count 0.11 10^3/uL (0.0-0.2)
[2022-02-03 09:56] LABS: ALT 18 U/L (16-63); AST 27 U/L (15-37); Albumin 3.5 g/dL (3.4-5.0); Alkaline Phosphatase 121 U/L (46-116); BUN 27 mg/dL (7-18); Bilirubin, Total 0.3 mg/dL (0.2-1.0); CREATININE 2.1 mg/dL (0.70-1.30); Calcium 9.4 mg/dL (8.5-10.1); Chloride 99 mmol/L (98-107); Estimated GFR 34.08 (mL/min/1.73m2); FREE T4 0.94 ng/dL (0.76-1.46); Glucose 97 mg/dL (74-106); Magnesium 1.9 mg/dL (1.8-2.4); Potassium 4.4 mmol/L (3.5-5.1); Sodium 135 mmol/L (136-145); TSH 1.38 uIU/mL (0.36-3.74); Total Protein 8.5 g/dL (6.4-8.2)
== END 2022-02-03 03:19 | disposition home or self-care (01) ==
LOC: LBO 03:19
PROVIDERS: PCP Nurse Practitioner Family; Visit Provider Internal Medicine Medical Oncology
DX: C34.32 Malignant neoplasm of lower lobe, left bronchus or lung (principal); Z79.899 Other long term (current) drug therapy; C79.31 Secondary malignant neoplasm of brain
CPT/HCPCS: 36415; 80053; 83735; 84439; 84443; 85025

== ENCOUNTER 2022-02-21 00:18 | Outpatient (CLI) | payer BC, SELFPAY ==
--- NOTE | 2022-02-21 | DI.MRI_ITS ---
Exam(s) MR BRAIN WO/W EXAM: MR BRAIN WO/W CLINICAL HISTORY: LUNG CA WITH BRAIN METS,RADIATION NECROSIS LT TEMPORAL LOBE. TECHNIQUE: Multiplanar multisequence MRI of the brain was performed. CONTRAST MATERIAL: IV Contrast: 16 ML of Dotarem contrast administered. COMPARISON: MR MR BRAIN WO/W from 05/15/2021 FINDINGS: VENTRICLES AND EXTRA AXIAL SPACES: Normal in size and morphology for the patient's age. HEMORRHAGE: None. CEREBRAL PARENCHYMA: No focus of restricted diffusion to suggest acute infarct. Tiny focus of restric asim diffusion in the periphery of the right frontal lobe on the prior exam is no longer seen. There i s now edema in the left temporal lobe there is a peripherally enhancing of fluid signal lesion measur ing 2.5 x 2.1 cm in the location of the previously noted enhancing solid nodule. 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 No new areas of abnormal enhancement are seen. There are stable patchy areas of high signal in the white matter without enhancement, consistent with microvascular changes. Stable mild atrophy. MIDLINE SHIFT: None. BRAINSTEM/CEREBELLUM: Normal. CALVARIUM: Normal. VISUALIZED PARANASAL SINUSES/MASTOIDS: Clear. 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 Surrounding edema in the left temporal lobe. No new lesions. DATA REPOSITORY:
[2022-02-21 09:28] LABS: Abs Immature Grans 0.04 10^3/uL (0.0-0.06); Absolute Basophil Count 0.14 10^3/uL (0.0-0.2); Absolute Eosinophil Count 1.22 10^3/uL (0.0-0.7); Absolute Lymphocyte Count 1.95 10^3/uL (1.2-3.4); Absolute Monocyte Count 1.53 10^3/uL (0.1-0.8); Absolute Neutrophil Count 5.88 10^3/uL (1.2-6.7); Basophils % 1.3; Eosinophils % 11.3; HCT 43.9 % (40.0-50.0); HGB 14.7 g/dL (13.5-17.5); Immature Grans % 0.4; Lymphocytes % 18.1; MCH 33.7 pg (27.0-33.0); MCHC 33.5 % (32.0-36.0); MCV 101 fL (80-95); MPV 9.5 fL (8.0-11.0); Monocytes % 14.2; Neutrophils % 54.7; Platelet Count 287 10^3/uL (130-400); RBC 4.36 10^6/uL (4.36-5.78); RDW 12.6 % (11.8-14.1); WBC 10.76 10^3/uL (4.4-10.8)
[2022-02-21 09:49] LABS: Diff Comment Diff Reviewed; RBC Morphology Normal
[2022-02-21 09:57] LABS: ALT 14 U/L (16-63); AST 24 U/L (15-37); Albumin 3.7 g/dL (3.4-5.0); Alkaline Phosphatase 128 U/L (46-116); Anion Gap 7.8 mmol/L (3-11); BUN 21 mg/dL (7-18); Bilirubin, Total 0.5 mg/dL (0.2-1.0); CO2 27.2 mmol/L (21.0-32.0); CREATININE 1.7 mg/dL (0.70-1.30); Calcium 9.4 mg/dL (8.5-10.1); Chloride 100 mmol/L (98-107); Estimated GFR 43.91 (mL/min/1.73m2); FREE T4 1.05 ng/dL (0.76-1.46); Glucose 84 mg/dL (74-106); Potassium 4.1 mmol/L (3.5-5.1); Sodium 135 mmol/L (136-145); TSH 1.37 uIU/mL (0.36-3.74); Total Protein 8.7 g/dL (6.4-8.2)
[2022-02-21] MEDS: Normal Saline Flush 10 ML SYR IVP (10:02)
[2022-02-21] MEDS: Gadoterate meglumine 20 ML VIAL 16 ML IVP (10:03)
== END 2022-02-21 00:38 ==
PROVIDERS: PCP Nurse Practitioner Family; Visit Provider Internal Medicine Medical Oncology
DX: I67.89 Other cerebrovascular disease (principal); C79.31 Secondary malignant neoplasm of brain; C34.32 Malignant neoplasm of lower lobe, left bronchus or lung; Z79.899 Other long term (current) drug therapy
CPT/HCPCS: 70553; 80053; 83735; 84439; 84443; 85025

== ENCOUNTER 2022-03-03 15:27 | Outpatient (CLI) | payer OTHER, SELFPAY ==
[2022-03-03 13:18] LABS: Abs Immature Grans 0.03 10^3/uL (0.0-0.06); Absolute Eosinophil Count 1.07 10^3/uL (0.0-0.7); Absolute Lymphocyte Count 3.06 10^3/uL (1.2-3.4); Absolute Monocyte Count 0.98 10^3/uL (0.1-0.8); Basophils % 1.1; Eosinophils % 8.7; HCT 42.6 % (40.0-50.0); HGB 14.5 g/dL (13.5-17.5); Immature Grans % 0.2; MCH 33.8 pg (27.0-33.0); MCV 99 fL (80-95); MPV 9.4 fL (8.0-11.0); Platelet Count 299 10^3/uL (130-400); RBC 4.29 10^6/uL (4.36-5.78); RDW 11.9 % (11.8-14.1); RDW-SD 43.4 fL; WBC 12.25 10^3/uL (4.4-10.8)
[2022-03-03 13:26] LABS: Absolute Basophil Count 0.13 10^3/uL (0.0-0.2); Absolute Neutrophil Count 6.98 10^3/uL (1.2-6.7)
[2022-03-03 13:44] LABS: ALT 14 U/L (16-63); AST 23 U/L (15-37); Albumin 3.7 g/dL (3.4-5.0); Alkaline Phosphatase 136 U/L (46-116); Anion Gap 7.2 mmol/L (3-11); BUN 20 mg/dL (7-18); Bilirubin, Total 0.3 mg/dL (0.2-1.0); CO2 26.8 mmol/L (21.0-32.0); CREATININE 1.8 mg/dL (0.70-1.30); Calcium 9.5 mg/dL (8.5-10.1); Chloride 102 mmol/L (98-107); FREE T4 1.08 ng/dL (0.76-1.46); Glucose 113 mg/dL (74-106); Magnesium 2.1 mg/dL (1.8-2.4); Sodium 136 mmol/L (136-145); Total Protein 8.6 g/dL (6.4-8.2)
== END 2022-03-03 15:28 | disposition home or self-care (01) ==
LOC: LBO 15:27
PROVIDERS: PCP Nurse Practitioner Family; Visit Provider Internal Medicine Medical Oncology
DX: C34.30 Malignant neoplasm of lower lobe, unspecified bronchus or lung (principal); Z79.899 Other long term (current) drug therapy
CPT/HCPCS: 36415; 80053; 84153; 83735; 84439; 84443; 85025

== ENCOUNTER 2022-03-24 15:05 | Outpatient (CLI) | payer OTHER, SELFPAY ==
[2022-03-24 09:51] LABS: Abs Immature Grans 0.04 10^3/uL (0.0-0.06); Absolute Basophil Count 0.08 10^3/uL (0.0-0.2); Absolute Eosinophil Count 0.86 10^3/uL (0.0-0.7); Absolute Lymphocyte Count 2.31 10^3/uL (1.2-3.4); Absolute Monocyte Count 0.97 10^3/uL (0.1-0.8); Absolute Neutrophil Count 6.13 10^3/uL (1.2-6.7); Basophils % 0.8; Eosinophils % 8.3; HCT 44.1 % (40.0-50.0); HGB 14.8 g/dL (13.5-17.5); Immature Grans % 0.4; Lymphocytes % 22.2; MCH 33.3 pg (27.0-33.0); MCHC 33.6 % (32.0-36.0); MCV 99 fL (80-95); MPV 9.3 fL (8.0-11.0); Monocytes % 9.3; Platelet Count 253 10^3/uL (130-400); RBC 4.44 10^6/uL (4.36-5.78); RDW 11.9 % (11.8-14.1); RDW-SD 43.5 fL; WBC 10.39 10^3/uL (4.4-10.8)
[2022-03-24 10:21] LABS: ALT 38 U/L (16-63); AST 35 U/L (15-37); Albumin 3.7 g/dL (3.4-5.0); Alkaline Phosphatase 131 U/L (46-116); Anion Gap 9.5 mmol/L (3-11); BUN 23 mg/dL (7-18); Bilirubin, Total 0.3 mg/dL (0.2-1.0); CO2 25.5 mmol/L (21.0-32.0); CREATININE 1.9 mg/dL (0.70-1.30); Calcium 9.3 mg/dL (8.5-10.1); Chloride 103 mmol/L (98-107); Estimated GFR 38.42 (mL/min/1.73m2); FREE T4 1.07 ng/dL (0.76-1.46); Glucose 98 mg/dL (74-106); Potassium 4.4 mmol/L (3.5-5.1); Sodium 138 mmol/L (136-145); TSH 1.08 uIU/mL (0.36-3.74); Total Protein 8.2 g/dL (6.4-8.2)
== END 2022-03-24 15:06 | disposition home or self-care (01) ==
LOC: LBO 15:10
PROVIDERS: PCP Nurse Practitioner Family; Visit Provider Internal Medicine Medical Oncology
DX: C34.30 Malignant neoplasm of lower lobe, unspecified bronchus or lung (principal); Z79.899 Other long term (current) drug therapy; C79.31 Secondary malignant neoplasm of brain
CPT/HCPCS: 36415; 80053; 83735; 84439; 84443; 85025

== ENCOUNTER 2022-04-08 01:09 | Outpatient (CLI) | payer OTHER, SELFPAY ==
--- NOTE | 2022-04-08 | DI.CT_ITS ---
Exam(s) CT CHEST W EXAM: CT CHEST W CLINICAL HISTORY: NSCLC LOWER LOBE LUNG, C34.30, METS, ASSESS TREATMENT RESPONSE. TECHNIQUE: Multi planar reconstructions were performed. CONTRAST MATERIAL: Omnipaque 350; 70 cc COMPARISON: CT CT CHEST W from 01/10/2022 FINDINGS: CHEST: LUNGS: When compared to the CT study of 01/10/2022 the size of the spiculated mass in the left lower lobe has slightly decreased and the amount of surrounding increased markings has also decreased. No other left lung findings and no pleural effusions. There are no new focal findings in the opposite-r ight lung. No new findings in trachea and mainstem bronchi. MEDIASTINUM: There is no new hilar nor mediastinal adenopathy. No subcarinal adenopathy. Visualized thyroid unremarkable. No axillary adenopathy. No supraclavicular adenopathy. CARDIAC: Heart size is normal. There is no pericardial effusion.Somewhat atherosclerotic aorta again noted as is atherosclerotic involvement of the origin left subclavian artery. VISUALIZED UPPER ABDOMEN:Metastatic appearing mass in the left adrenal gland again noted. Appears sl ightly further increased in size, measuring 4.2 by 2 cm the present study. The opposite-right adrena l gland remains unremarkable. OSSEOUS: No fractures. No new significant osseous lesions.. IMPRESSION: 1. Compared to the prior CT scan of 01/10/2022 there is slight decrease in size of the left lower lob e spiculated mass and decrease in amount of surrounding infiltrate. No pleural effusions nor new int rathoracic adenopathy. No new focal pulmonary findings. 2. Metastatic appearing left adrenal mass has slightly further increased in size. 3. Opposite-right adrenal gland remains unremarkable in appearance. RADIATION DOSE DELIVERED: 509.26mGy.cm Total DLP DATA REPOSITORY: All CT scans at this facility are submitted to the National Radiology Data Registry (NRDR) Dose Index Registry (DIR) with the [employer] (ACR). RADIATION OPTIMIZATION: All CT scans at this facility use at least one of these dose optimization te chniques: automated exposure control; mA and/or kV adjustment per patient size (includes targeted exa ms where dose is matched to clinical indication); or iterative reconstruction.
[2022-04-08 13:14] LABS: Abs Immature Grans 0.03 10^3/uL (0.0-0.06); Absolute Basophil Count 0.11 10^3/uL (0.0-0.2); Absolute Eosinophil Count 0.87 10^3/uL (0.0-0.7); Absolute Lymphocyte Count 2.88 10^3/uL (1.2-3.4); Absolute Monocyte Count 1.03 10^3/uL (0.1-0.8); Absolute Neutrophil Count 5.91 10^3/uL (1.2-6.7); HCT 46.3 % (40.0-50.0); HGB 15.3 g/dL (13.5-17.5); Immature Grans % 0.3; Lymphocytes % 26.6; MCH 32.1 pg (27.0-33.0); MCV 97 fL (80-95); MPV 9.6 fL (8.0-11.0); Monocytes % 9.5; Neutrophils % 54.6; Platelet Count 290 10^3/uL (130-400); RBC 4.77 10^6/uL (4.36-5.78); RDW 11.8 % (11.8-14.1); RDW-SD 42.7 fL; WBC 10.83 10^3/uL (4.4-10.8)
[2022-04-08 13:48] LABS: ALT 19 U/L (16-63); AST 25 U/L (15-37); Albumin 3.7 g/dL (3.4-5.0); Alkaline Phosphatase 126 U/L (46-116); Anion Gap 9.5 mmol/L (3-11); BUN 18 mg/dL (7-18); Bilirubin, Total 0.4 mg/dL (0.2-1.0); CO2 25.5 mmol/L (21.0-32.0); CREATININE 1.6 mg/dL (0.70-1.30); Calcium 9.6 mg/dL (8.5-10.1); Chloride 99 mmol/L (98-107); Estimated GFR 47.23 (mL/min/1.73m2); FREE T4 1.01 ng/dL (0.76-1.46); Glucose 93 mg/dL (74-106); Magnesium 1.9 mg/dL (1.8-2.4); Potassium 4.2 mmol/L (3.5-5.1); Sodium 134 mmol/L (136-145); TSH 1.74 uIU/mL (0.36-3.74); Total Protein 8.6 g/dL (6.4-8.2)
[2022-04-08] MEDS: Omnipaque 350 MG/ML 100 ML BTL IJ (14:10)
[2022-04-08] MEDS: Normal Saline Flush 10 ML SYR IVP (14:11)
[2022-04-08] MEDS: Normal Saline - Diluent 50 ML VIAL IJ (14:11)
== END 2022-04-08 01:29 ==
PROVIDERS: Internal Medicine Medical Oncology; PCP Nurse Practitioner Family; Visit Provider Nurse Practitioner Family
DX: C34.32 Malignant neoplasm of lower lobe, left bronchus or lung (principal)
CPT/HCPCS: 80053; 71260; 83735; 84439; 84443; 85025; J3490

== ENCOUNTER 2022-04-14 12:30 | Outpatient (CLI) | payer OTHER, SELFPAY ==
[2022-04-14 10:02] LABS: Abs Immature Grans 0.05 10^3/uL (0.0-0.06); Absolute Basophil Count 0.12 10^3/uL (0.0-0.2); Absolute Eosinophil Count 0.95 10^3/uL (0.0-0.7); Absolute Monocyte Count 1.18 10^3/uL (0.1-0.8); Basophils % 0.8; Eosinophils % 6.2; HCT 48.5 % (40.0-50.0); HGB 15.8 g/dL (13.5-17.5); Immature Grans % 0.3; Lymphocytes % 15.7; MCHC 32.6 % (32.0-36.0); MCV 98 fL (80-95); MPV 9.5 fL (8.0-11.0); Monocytes % 7.7; Neutrophils % 69.3; Platelet Count 275 10^3/uL (130-400); RBC 4.94 10^6/uL (4.36-5.78); RDW 11.9 % (11.8-14.1); RDW-SD 43.6 fL; WBC 15.29 10^3/uL (4.4-10.8)
[2022-04-14 10:31] LABS: ALT 18 U/L (16-63); AST 21 U/L (15-37); Albumin 3.7 g/dL (3.4-5.0); Alkaline Phosphatase 151 U/L (46-116); Anion Gap 7.4 mmol/L (3-11); BUN 28 mg/dL (7-18); Bilirubin, Total 0.3 mg/dL (0.2-1.0); CO2 28.6 mmol/L (21.0-32.0); CREATININE 1.8 mg/dL (0.70-1.30); Calcium 9.7 mg/dL (8.5-10.1); Chloride 103 mmol/L (98-107); FREE T4 0.95 ng/dL (0.76-1.46); Glucose 119 mg/dL (74-106); Magnesium 2.1 mg/dL (1.8-2.4); Potassium 4.9 mmol/L (3.5-5.1); Sodium 139 mmol/L (136-145); TSH 2.13 uIU/mL (0.36-3.74); Total Protein 8.5 g/dL (6.4-8.2)
== END 2022-04-14 12:31 | disposition home or self-care (01) ==
LOC: LBO 12:31
PROVIDERS: PCP Nurse Practitioner Family; Visit Provider Internal Medicine Medical Oncology
DX: C34.30 Malignant neoplasm of lower lobe, unspecified bronchus or lung (principal); Z79.899 Other long term (current) drug therapy; C79.31 Secondary malignant neoplasm of brain
CPT/HCPCS: 36415; 80053; 83735; 84439; 84443; 85025

== ENCOUNTER 2022-05-05 03:13 | Outpatient (CLI) | payer OTHER, SELFPAY ==
[2022-05-05 10:50] LABS: Abs Immature Grans 0.03 10^3/uL (0.0-0.06); Absolute Basophil Count 0.12 10^3/uL (0.0-0.2); Absolute Eosinophil Count 0.73 10^3/uL (0.0-0.7); Absolute Lymphocyte Count 2.39 10^3/uL (1.2-3.4); Absolute Monocyte Count 1.12 10^3/uL (0.1-0.8); Absolute Neutrophil Count 6.87 10^3/uL (1.2-6.7); Basophils % 1.1; Eosinophils % 6.5; HCT 45.8 % (40.0-50.0); HGB 15.4 g/dL (13.5-17.5); Immature Grans % 0.3; Lymphocytes % 21.2; MCH 31.8 pg (27.0-33.0); MCHC 33.6 % (32.0-36.0); MCV 95 fL (80-95); MPV 9.5 fL (8.0-11.0); Monocytes % 9.9; Platelet Count 276 10^3/uL (130-400); RBC 4.84 10^6/uL (4.36-5.78); RDW 12.2 % (11.8-14.1); RDW-SD 42.5 fL; WBC 11.27 10^3/uL (4.4-10.8)
[2022-05-05 11:24] LABS: ALT 19 U/L (16-63); AST 19 U/L (15-37); Albumin 3.3 g/dL (3.4-5.0); Alkaline Phosphatase 117 U/L (46-116); Anion Gap 6.8 mmol/L (3-11); BUN 24 mg/dL (7-18); Bilirubin, Total 0.3 mg/dL (0.2-1.0); CO2 28.2 mmol/L (21.0-32.0); CREATININE 1.6 mg/dL (0.70-1.30); Calcium 9.1 mg/dL (8.5-10.1); Chloride 103 mmol/L (98-107); Estimated GFR 47.23 (mL/min/1.73m2); FREE T4 0.93 ng/dL (0.76-1.46); Glucose 83 mg/dL (74-106); Magnesium 1.9 mg/dL (1.8-2.4); Potassium 4.3 mmol/L (3.5-5.1); Sodium 138 mmol/L (136-145); TSH 0.73 uIU/mL (0.36-3.74); Total Protein 7.9 g/dL (6.4-8.2)
== END 2022-05-05 03:14 | disposition home or self-care (01) ==
LOC: LBO 03:13
PROVIDERS: PCP Nurse Practitioner Family; Visit Provider Internal Medicine Medical Oncology
DX: C34.32 Malignant neoplasm of lower lobe, left bronchus or lung (principal); Z79.899 Other long term (current) drug therapy; C79.31 Secondary malignant neoplasm of brain
CPT/HCPCS: 36415; 80053; 83735; 84439; 84443; 85025

== ENCOUNTER 2022-05-26 03:35 | Outpatient (CLI) | payer OTHER, SELFPAY ==
[2022-05-26 09:36] LABS: Abs Immature Grans 0.03 10^3/uL (0.0-0.06); Absolute Eosinophil Count 0.83 10^3/uL (0.0-0.7); Absolute Lymphocyte Count 2.57 10^3/uL (1.2-3.4); Absolute Monocyte Count 1.07 10^3/uL (0.1-0.8); Basophils % 0.9; Eosinophils % 7.7; HCT 48.4 % (40.0-50.0); HGB 15.9 g/dL (13.5-17.5); Immature Grans % 0.3; Lymphocytes % 23.8; MCH 30.8 pg (27.0-33.0); MCHC 32.9 % (32.0-36.0); MCV 94 fL (80-95); MPV 9.5 fL (8.0-11.0); Monocytes % 9.9; Neutrophils % 57.4; Platelet Count 251 10^3/uL (130-400); RBC 5.16 10^6/uL (4.36-5.78); RDW 12.5 % (11.8-14.1); RDW-SD 43.4 fL
[2022-05-26 10:04] LABS: ALT 22 U/L (16-63); AST 19 U/L (15-37); Albumin 3.6 g/dL (3.4-5.0); Alkaline Phosphatase 137 U/L (46-116); Anion Gap 4.3 mmol/L (3-11); BUN 23 mg/dL (7-18); Bilirubin, Total 0.4 mg/dL (0.2-1.0); CO2 30.7 mmol/L (21.0-32.0); CREATININE 1.8 mg/dL (0.70-1.30); Calcium 9.8 mg/dL (8.5-10.1); Chloride 102 mmol/L (98-107); FREE T4 0.95 ng/dL (0.76-1.46); Glucose 110 mg/dL (74-106); Potassium 4.6 mmol/L (3.5-5.1); Sodium 137 mmol/L (136-145); TSH 1.77 uIU/mL (0.36-3.74); Total Protein 8.6 g/dL (6.4-8.2)
== END 2022-05-26 03:36 | disposition home or self-care (01) ==
LOC: LBO 03:35
PROVIDERS: PCP Nurse Practitioner Family; Visit Provider Internal Medicine Medical Oncology
DX: C34.32 Malignant neoplasm of lower lobe, left bronchus or lung (principal); Z79.899 Other long term (current) drug therapy; C79.31 Secondary malignant neoplasm of brain
CPT/HCPCS: 36415; 80053; 83735; 84439; 84443; 85025

== ENCOUNTER 2022-07-28 16:45 | Outpatient (CLI) | payer OTHER, SELFPAY ==
[2022-07-28 13:47] LABS: Abs Immature Grans 0.04 10^3/uL (0.0-0.06); Absolute Basophil Count 0.06 10^3/uL (0.0-0.2); Absolute Eosinophil Count 0.76 10^3/uL (0.0-0.7); Absolute Lymphocyte Count 0.87 10^3/uL (1.2-3.4); Absolute Neutrophil Count 6.15 10^3/uL (1.2-6.7); Basophils % 0.7; Eosinophils % 8.5; HGB 14.7 g/dL (13.5-17.5); Immature Grans % 0.4; Lymphocytes % 9.7; MCH 31.7 pg (27.0-33.0); MCHC 33.4 % (32.0-36.0); MCV 95 fL (80-95); MPV 9.4 fL (8.0-11.0); Monocytes % 12.2; Neutrophils % 68.5; Platelet Count 206 10^3/uL (130-400); RBC 4.64 10^6/uL (4.36-5.78); RDW 13.6 % (11.8-14.1); RDW-SD 47.9 fL; WBC 8.98 10^3/uL (4.4-10.8)
[2022-07-28 13:53] LABS: Calculated LDL 109 mg/dL (<100); Cholesterol 178 mg/dL (<200); HDL Cholesterol 45 mg/dL (40-60); Triglyceride 122 mg/dL (<150)
[2022-07-28 14:10] LABS: ALT 26 U/L (16-63); AST 24 U/L (15-37); Albumin 3.5 g/dL (3.4-5.0); Alkaline Phosphatase 143 U/L (46-116); Anion Gap 3.6 mmol/L (3-11); BUN 22 mg/dL (7-18); Bilirubin, Total 0.4 mg/dL (0.2-1.0); CO2 27.4 mmol/L (21.0-32.0); CREATININE 1.7 mg/dL (0.70-1.30); Calcium 9.3 mg/dL (8.5-10.1); Chloride 103 mmol/L (98-107); Estimated GFR 43.64 (mL/min/1.73m2); FREE T4 0.99 ng/dL (0.76-1.46); Glucose 104 mg/dL (74-106); Potassium 4.7 mmol/L (3.5-5.1); Sodium 134 mmol/L (136-145); TSH 0.78 uIU/mL (0.36-3.74)
== END 2022-07-28 16:46 | disposition home or self-care (01) ==
LOC: LBO 16:46
PROVIDERS: PCP Nurse Practitioner Family; Visit Provider Nurse Practitioner Family
DX: C34.30 Malignant neoplasm of lower lobe, unspecified bronchus or lung (principal); Z79.899 Other long term (current) drug therapy; Z13.220 Encounter for screening for lipoid disorders; R79.89 Other specified abnormal findings of blood chemistry
CPT/HCPCS: 36415; 80053; 80061; 83735; 84439; 84443; 85025

== ENCOUNTER 2022-09-15 02:53 | Outpatient (CLI) | payer OTHER, SELFPAY ==
--- NOTE | 2022-09-15 | DI.CT_ITS ---
Exam(s) CT CHEST/ABD/PEL WO EXAM: CT CHEST/ABD/PEL WO CLINICAL HISTORY: LUNG CANCER C34.30 SECONDARY NEOPLASM ADRENAL GLAND C79.72 TECHNIQUE: Imaging Protocol: Axial computed tomography images with coronal and sagittal reformatted images were created and reviewed COMPARISON: CT CT CHEST W from 04/08/2022 FINDINGS: CHEST: Tracheobronchial tree: Patent where visualized. Pulmonary parenchyma: Centrilobular emphysema. The spiculated masslike area in the left lower lobe i s unchanged. The lungs are otherwise clear. No new findings are seen in the lungs. Mediastinum and Sammie: No dominant adenopathy or fluid collection. The esophagus is unremarkable. Thyroid gland: Unremarkable. Pleura: No effusion or pneumothorax. Heart: The heart is not dilated. Marked coronary artery calcification is present. No pericardial eff usion. Aorta: Thoracic aorta non-dilated. Atherosclerosis is present. Lymph nodes: Within normal limits. Bones:Within normal limits for the patient's age. Soft tissues: Gynecomastia. ABDOMEN: Liver: Hepatomegaly. No measurable mass. Gallbladder and Biliary Tract: No radiodense calculus or dilation. Pancreas: Normal density, no abnormal calcifications or inflammatory process. Spleen: Normal. Adrenals: There is again seen a left adrenal mass. The right adrenal gland is unremarkable. Kidneys: Normal size, contour and axis. Bilateral nephrolithiasis. No hydronephrosis. There are steven ateral renal cysts. Abdominal Aorta: There is a 3.4 x 3.1 cm infrarenal abdominal aortic aneurysm. Dense calcification i s seen in the abdominal aorta and its runoff. Bowel: There is diverticulosis of the colon but no evidence of acute diverticulitis. The bowel shows no evidence of obstruction or bowel wall thickening. Appendix is unremarkable. Peritoneal Cavity: No ascites, collection or mesenteric inflammatory response. No free air. Lymph Nodes: Within normal limits. Bones: Within normal limits for the patient's age. No aggressive osseous lesions. Soft Tissues: There is a small fat containing umbilical hernia. A small fat containing right inguina l hernia is noted. PELVIS: Bladder: Symmetric distention, no gross wall thickening. Reproductive Organs: Unremarkable as visualized. Lymph Nodes: Within normal limits. Bones: Within normal limits for the patient's age. IMPRESSION: 1. Stable spiculated soft tissue in the left lower lobe of the lung. 2. Centrilobular emphysema. 3. Stable left adrenal nodule. 4. 3.4 x 3.1 cm infrarenal abdominal aortic aneurysm. Atherosclerosis. RADIATION DOSE DELIVERED: Total DLP Total DLP DATA REPOSITORY: All CT scans at this facility are submitted to the National Radiology Data Registry (NRDR) Dose Index Registry (DIR) with the [employer] (ACR). RADIATION OPTIMIZATION: All CT scans at this facility use at least one of these dose optimization te chniques: automated exposure control; mA and/or kV adjustment per patient size (includes targeted exa ms where dose is matched to clinical indication); or iterative reconstruction.
[2022-09-15 10:02] LABS: Abs Immature Grans 0.04 10^3/uL (0.0-0.06); Absolute Basophil Count 0.09 10^3/uL (0.0-0.2); Absolute Eosinophil Count 0.98 10^3/uL (0.0-0.7); Absolute Lymphocyte Count 1.03 10^3/uL (1.2-3.4); Basophils % 0.9; Eosinophils % 9.5; HCT 43.6 % (40.0-50.0); HGB 14.7 g/dL (13.5-17.5); Immature Grans % 0.4; MCH 31.5 pg (27.0-33.0); MCHC 33.7 % (32.0-36.0); MCV 94 fL (80-95); MPV 9.7 fL (8.0-11.0); Monocytes % 10.6; Neutrophils % 68.6; Platelet Count 230 10^3/uL (130-400); RBC 4.66 10^6/uL (4.36-5.78); RDW 13.3 % (11.8-14.1); RDW-SD 45.7 fL; WBC 10.34 10^3/uL (4.4-10.8)
[2022-09-15] MEDS: Barium Sulfate 2% W/V-Berry Smoothie 450 ML BTL PO ×2 (10:04→10:05)
[2022-09-15 10:26] LABS: ALT 19 U/L (16-63); AST 17 U/L (15-37); Albumin 3.7 g/dL (3.4-5.0); Alkaline Phosphatase 162 U/L (46-116); Anion Gap 9.6 mmol/L (3-11); BUN 28 mg/dL (7-18); Bilirubin, Total 0.3 mg/dL (0.2-1.0); CO2 23.4 mmol/L (21.0-32.0); CREATININE 2.9 mg/dL (0.70-1.30); Calcium 9.5 mg/dL (8.5-10.1); Chloride 106 mmol/L (98-107); Estimated GFR 22.99 (mL/min/1.73m2); FREE T4 0.81 ng/dL (0.76-1.46); Glucose 97 mg/dL (74-106); Potassium 4.8 mmol/L (3.5-5.1); Sodium 139 mmol/L (136-145); TSH 1.03 uIU/mL (0.36-3.74); Total Protein 8.5 g/dL (6.4-8.2)
== END 2022-09-15 03:13 ==
LOC: DI 02:53
PROVIDERS: PCP Nurse Practitioner Family; Visit Provider Nurse Practitioner Family
DX: C34.30 Malignant neoplasm of lower lobe, unspecified bronchus or lung (principal); C79.72 Secondary malignant neoplasm of left adrenal gland; Z79.899 Other long term (current) drug therapy
CPT/HCPCS: 71250; 80053; 74176; 84439; 84443; 85025

== ENCOUNTER 2022-09-22 02:42 | Outpatient (CLI) | payer OTHER, SELFPAY ==
[2022-09-22 13:03] LABS: Abs Immature Grans 0.05 10^3/uL (0.0-0.06); Absolute Basophil Count 0.11 10^3/uL (0.0-0.2); Absolute Eosinophil Count 1.16 10^3/uL (0.0-0.7); Absolute Lymphocyte Count 1.44 10^3/uL (1.2-3.4); Absolute Monocyte Count 1.08 10^3/uL (0.1-0.8); Absolute Neutrophil Count 6.65 10^3/uL (1.2-6.7); Eosinophils % 11.1; HCT 43.1 % (40.0-50.0); HGB 14.6 g/dL (13.5-17.5); Immature Grans % 0.5; Lymphocytes % 13.7; MCH 32.2 pg (27.0-33.0); MCHC 33.9 % (32.0-36.0); MCV 95 fL (80-95); MPV 9.5 fL (8.0-11.0); Monocytes % 10.3; Neutrophils % 63.4; Platelet Count 248 10^3/uL (130-400); RBC 4.53 10^6/uL (4.36-5.78); RDW 13.2 % (11.8-14.1); RDW-SD 46.9 fL; WBC 10.49 10^3/uL (4.4-10.8)
[2022-09-22 13:32] LABS: ALT 18 U/L (16-63); AST 17 U/L (15-37); Albumin 3.5 g/dL (3.4-5.0); Alkaline Phosphatase 147 U/L (46-116); Anion Gap 8.3 mmol/L (3-11); BUN 31 mg/dL (7-18); Bilirubin, Total 0.3 mg/dL (0.2-1.0); CO2 24.7 mmol/L (21.0-32.0); CREATININE 2.5 mg/dL (0.70-1.30); Calcium 9.3 mg/dL (8.5-10.1); Chloride 103 mmol/L (98-107); Estimated GFR 27.47 (mL/min/1.73m2); FREE T4 0.77 ng/dL (0.76-1.46); Glucose 106 mg/dL (74-106); Potassium 4.8 mmol/L (3.5-5.1); Sodium 136 mmol/L (136-145); TSH 1.04 uIU/mL (0.36-3.74); Total Protein 7.9 g/dL (6.4-8.2)
== END 2022-09-22 02:43 | disposition home or self-care (01) ==
LOC: LBO 02:42
PROVIDERS: PCP Nurse Practitioner Family; Visit Provider Nurse Practitioner Family
DX: Z79.899 Other long term (current) drug therapy (principal); C34.30 Malignant neoplasm of lower lobe, unspecified bronchus or lung
CPT/HCPCS: 36415; 80053; 84439; 84443; 85025

== ENCOUNTER 2022-10-07 10:15 | Outpatient (CLI) | payer OTHER, SELFPAY ==
[2022-10-07 09:22] LABS: Abs Immature Grans 0.05 10^3/uL (0.0-0.06); Absolute Eosinophil Count 1.02 10^3/uL (0.0-0.7); Absolute Lymphocyte Count 1.41 10^3/uL (1.2-3.4); Absolute Neutrophil Count 7.88 10^3/uL (1.2-6.7); Eosinophils % 8.8; HGB 14.3 g/dL (13.5-17.5); Immature Grans % 0.4; Lymphocytes % 12.2; MCH 31.8 pg (27.0-33.0); MCV 93 fL (80-95); MPV 9.4 fL (8.0-11.0); Monocytes % 9.5; Neutrophils % 68.1; Platelet Count 256 10^3/uL (130-400); RDW 12.8 % (11.8-14.1); WBC 11.57 10^3/uL (4.4-10.8)
[2022-10-07 09:25] LABS: Absolute Basophil Count 0.12 10^3/uL (0.0-0.2)
[2022-10-07 10:08] LABS: ALT 19 U/L (16-63); AST 18 U/L (15-37); Albumin 3.7 g/dL (3.4-5.0); Alkaline Phosphatase 155 U/L (46-116); Anion Gap 11.1 mmol/L (3-11); BUN 30 mg/dL (7-18); Bilirubin, Total 0.4 mg/dL (0.2-1.0); CO2 21.9 mmol/L (21.0-32.0); CREATININE 2.8 mg/dL (0.70-1.30); Calcium 9.8 mg/dL (8.5-10.1); Chloride 104 mmol/L (98-107); Estimated GFR 23.98 (mL/min/1.73m2); FREE T4 0.96 ng/dL (0.76-1.46); Glucose 99 mg/dL (74-106); Potassium 4.5 mmol/L (3.5-5.1); Sodium 137 mmol/L (136-145); TSH 1.27 uIU/mL (0.36-3.74); Total Protein 8.2 g/dL (6.4-8.2)
== END 2022-10-07 10:16 | disposition home or self-care (01) ==
PROVIDERS: PCP Nurse Practitioner Family; Visit Provider Nurse Practitioner Family
DX: Z79.899 Other long term (current) drug therapy (principal); C34.30 Malignant neoplasm of lower lobe, unspecified bronchus or lung
CPT/HCPCS: 36415; 80053; 84439; 84443; 85025

== ENCOUNTER → 2022-12-08 01:04 | Outpatient (CLI) | payer OTHER, SELFPAY ==
[2022-12-08 12:12] LABS: Abs Immature Grans 0.03 10^3/uL (0.0-0.06); Absolute Basophil Count 0.08 10^3/uL (0.0-0.2); Absolute Eosinophil Count 0.59 10^3/uL (0.0-0.7); Absolute Lymphocyte Count 1.61 10^3/uL (1.2-3.4); Absolute Monocyte Count 0.93 10^3/uL (0.1-0.8); Absolute Neutrophil Count 6.11 10^3/uL (1.2-6.7); Basophils % 0.9; Eosinophils % 6.3; HCT 37.7 % (40.0-50.0); HGB 12.8 g/dL (13.5-17.5); Immature Grans % 0.3; Lymphocytes % 17.2; MCH 32.2 pg (27.0-33.0); MCV 95 fL (80-95); MPV 9.6 fL (8.0-11.0); Monocytes % 9.9; Neutrophils % 65.4; Platelet Count 260 10^3/uL (130-400); RBC 3.98 10^6/uL (4.36-5.78); RDW 12.4 % (11.8-14.1); RDW-SD 43.1 fL; WBC 9.35 10^3/uL (4.4-10.8)
[2022-12-08 12:41] LABS: ALT 17 U/L (16-63); AST 19 U/L (15-37); Albumin 3.7 g/dL (3.4-5.0); Alkaline Phosphatase 134 U/L (46-116); BUN 30 mg/dL (7-18); Bilirubin, Total 0.4 mg/dL (0.2-1.0); CREATININE 2.3 mg/dL (0.70-1.30); Calcium 9.6 mg/dL (8.5-10.1); Chloride 102 mmol/L (98-107); Estimated GFR 30.36 (mL/min/1.73m2); FREE T4 1.04 ng/dL (0.76-1.46); Glucose 94 mg/dL (74-106); Potassium 4.6 mmol/L (3.5-5.1); Sodium 133 mmol/L (136-145); TSH 1.23 uIU/mL (0.36-3.74); Total Protein 7.7 g/dL (6.4-8.2)
[2022-12-08] MEDS: Omnipaque 350 MG/ML 50 ML BTL IJ (14:03)
[2022-12-08] MEDS: Normal Saline - Diluent 50 ML VIAL IJ (14:05)
[2022-12-08] MEDS: Barium Sulfate 2% W/V-Creamy Vanilla Smoothie 450 ML BTL 900 ML PO (14:05)
--- NOTE | 2022-12-08 14:15 | DI.CT_ITS ---
Exam(s) CT CHEST/ABD/PEL W EXAM: CT CHEST/ABD/PEL W CLINICAL HISTORY: LUNG CA, C34.30,METASTATIC,ASSESS TRETMENT RESPONSE, TECHNIQUE: Imaging Protocol: Axial computed tomography images with coronal and sagittal reformatted images were created and reviewed CONTRAST MATERIAL: Intravenous: Omnipaque 350 contrast volume:50 mL Oral: Yes COMPARISON: CT CT CHEST/ABD/PEL WO from 09/15/2022 FINDINGS: CHEST: Tracheobronchial tree: Patent where visualized. Pulmonary parenchyma: Mild centrilobular emphysematous changes are present. The spiculated masslike area in the left lower lobe is unchanged. No new pulmonary masses are seen. No focal consolidating infiltrates are present. Visualized thyroid gland: Unremarkable. Mediastinum and Sammie: No dominant adenopathy or fluid collection. The esophagus is unremarkable. Pleura: No effusion or pneumothorax. Heart: The heart is not dilated. Coronary artery calcification is present. No pericardial effusion. Pulmonary arteries: Due to the timing of the bolus, opacification of the pulmonary arteries is subopt imal for evaluation of pulmonary emboli. Aorta: Thoracic aorta non-dilated. Atherosclerosis. No evidence of dissection. Lymph nodes: Within normal limits. Soft tissues: Bilateral gynecomastia. Bones:Within normal limits for the patient's age. No aggressive osseous lesions are identified. ABDOMEN: Liver: Normal density. No measurable mass. Portal, Superior Mesenteric, and Splenic Veins: Unremarkable. Gallbladder and Biliary Tract: No radiodense calculus or dilation. Pancreas: Normal density, no abnormal calcifications or inflammatory process. Spleen: Normal. Adrenals: The left adrenal nodule is unchanged. The right adrenal gland is unremarkable. Kidneys: Normal size, contour and axis. Right nephrolithiasis. No obstructive uropathy. Stable bila teral renal cysts. No follow-up is recommended. Abdominal Aorta: There is a 3.2 x 3.3 cm infrarenal abdominal aortic aneurysm. Atherosclerosis. The re is resultant marked narrowing of the superior mesenteric artery. Bowel: There is diverticulosis of the colon without evidence of a diverticulitis. There is no eviden ce of bowel obstruction or bowel wall thickening. Appendix is unremarkable. Peritoneal Cavity: No ascites, collection or mesenteric inflammatory response. No free air. Lymph Nodes: Within normal limits. Bones: Within normal limits for the patient's age. No aggressive osseous lesions are identified. Soft Tissues: Unremarkable. PELVIS: Bladder: Symmetric distention, no gross wall thickening. Reproductive Organs: Unremarkable as visualized. Lymph Nodes: Within normal limits. Bones: Within normal limits. IMPRESSION: 1. Stable spiculated soft tissue mass in the left lower lobe of the lung. 2. Stable left adrenal nodule. 3. No acute finding seen in the chest, abdomen or pelvis. RADIATION DOSE DELIVERED: Total DLP DATA REPOSITORY: All CT scans at this facility are submitted to the National Radiology Data Registry (NRDR) Dose Index Registry (DIR) with the [employer] (ACR). RADIATION OPTIMIZATION: All CT scans at this facility use at least one of these dose optimization te chniques: automated exposure control; mA and/or kV adjustment per patient size (includes targeted exa ms where dose is matched to clinical indication); or iterative reconstruction.
== END ==
PROVIDERS: PCP Nurse Practitioner Family; Visit Provider Nurse Practitioner Family
DX: Z79.899 Other long term (current) drug therapy (principal); C34.30 Malignant neoplasm of lower lobe, unspecified bronchus or lung
CPT/HCPCS: 74177; 80053; 71260; 84439; 84443; 85025; Q9967

== ENCOUNTER 2022-12-15 13:52 | Outpatient (CLI) | payer OTHER, SELFPAY ==
[2022-12-15 13:10] LABS: Abs Immature Grans 0.04 10^3/uL (0.0-0.06); Absolute Basophil Count 0.09 10^3/uL (0.0-0.2); Absolute Eosinophil Count 0.79 10^3/uL (0.0-0.7); Absolute Lymphocyte Count 1.65 10^3/uL (1.2-3.4); Absolute Monocyte Count 1.05 10^3/uL (0.1-0.8); Absolute Neutrophil Count 6.47 10^3/uL (1.2-6.7); Basophils % 0.9; Eosinophils % 7.8; HCT 41.1 % (40.0-50.0); HGB 13.8 g/dL (13.5-17.5); Immature Grans % 0.4; Lymphocytes % 16.4; MCH 32.2 pg (27.0-33.0); MCHC 33.6 % (32.0-36.0); MCV 96 fL (80-95); MPV 9.5 fL (8.0-11.0); Monocytes % 10.4; Neutrophils % 64.1; Platelet Count 258 10^3/uL (130-400); RBC 4.29 10^6/uL (4.36-5.78); RDW 12.5 % (11.8-14.1); RDW-SD 44.1 fL; WBC 10.09 10^3/uL (4.4-10.8)
[2022-12-15 13:49] LABS: ALT 23 U/L (16-63); AST 18 U/L (15-37); Albumin 3.7 g/dL (3.4-5.0); Alkaline Phosphatase 139 U/L (46-116); Anion Gap 9.4 mmol/L (3-11); BUN 28 mg/dL (7-18); Bilirubin, Total 0.2 mg/dL (0.2-1.0); CO2 23.6 mmol/L (21.0-32.0); CREATININE 2.4 mg/dL (0.70-1.30); Calcium 9.6 mg/dL (8.5-10.1); Chloride 102 mmol/L (98-107); Estimated GFR 28.85 (mL/min/1.73m2); FREE T4 0.86 ng/dL (0.76-1.46); Glucose 113 mg/dL (74-106); Potassium 4.5 mmol/L (3.5-5.1); Sodium 135 mmol/L (136-145); TSH 2.96 uIU/mL (0.36-3.74); Total Protein 7.9 g/dL (6.4-8.2)
== END 2022-12-15 13:53 | disposition home or self-care (01) ==
PROVIDERS: PCP Nurse Practitioner Family; Visit Provider Nurse Practitioner Family
DX: Z79.899 Other long term (current) drug therapy (principal); C34.30 Malignant neoplasm of lower lobe, unspecified bronchus or lung
CPT/HCPCS: 36415; 80053; 84439; 84443; 85025

== ENCOUNTER → 2023-01-26 02:39 | Outpatient (CLI) | payer OTHER, SELFPAY ==
--- NOTE | 2023-01-26 | DI.MRI_ITS ---
Exam(s) MR BRAIN WO/W EXAM: MR BRAIN WO/W CLINICAL HISTORY: LUNG CANCER C34.30 LT ADRENAL GLAND C79.72 METS TO BRAIN C79.31 TECHNIQUE: Multiplanar multisequence MRI of the brain was performed. Both noninfused and contrast i nfused sequences were performed. IV Contrast injected was 10 cc Dotarem. COMPARISON: MR MR BRAIN WO/W from 02/21/2022 FINDINGS: CEREBRAL PARENCHYMA: No evidence of intracranial hemorrhage, mass effect nor shift of midline struct ures. The previously present prominent ring-enhancing lesion in the left temporal lobe is no longer seen. There is a small focus of signal abnormality and enhancement remaining in this region which me asures approximately 3 mm, significantly smaller than the previously present lesion at this level. T here is some surrounding white matter signal abnormality again noted but less than previous and proba merlin related to post radiation changes. There is no new abnormal meningeal enhancement. Otherwise, there are multiple foci of periventricular signal abnormality again noted which are unchan ged from the prior study and consistent with chronic small vessel ischemic changes.. There are no ar eas of restricted diffusion. DWI: No areas of restricted diffusion to suggest acute ischemic event. SWI: No microhemorrhages evident. PITUITARY GLAND: No mass nor parasellar abnormality. No obvious abnormality in the cavernous sinuses. FLOW VOIDS: The expected flow void are noted. No evidence of obvious aneurysm nor obvious vascular ma lformation. PARANASAL SINUSES: The visualized paranasal sinuses appear unremarkable. ORBITS: No obvious abnormal findings. IMPRESSION: 1. Compared to the prior MRI scan of 02/21/2022 the previously described prominent ring-enhancing les ion in the left temporal lobe has significantly decreased in size as has the amount of surrounding wh ite matter signal abnormality. At this location there is now a small 3 millimeter enhancing finding immediately adjacent to the temporal horn of the left lateral ventricle. Recommend repeat scan in a few months time to ensure stability of this finding. There are no other areas of abnormal enhancemen t in the brain. 2. There is also unchanged periventricular multilevel signal abnormality consistent with chronic smal l vessel disease (nonenhancing and not associated with restricted diffusion) which is unchanged from the prior MRI study. DATA REPOSITORY:
[2023-01-26 10:32] LABS: Abs Immature Grans 0.03 10^3/uL (0.0-0.06); Absolute Basophil Count 0.09 10^3/uL (0.0-0.2); Absolute Eosinophil Count 0.71 10^3/uL (0.0-0.7); Absolute Lymphocyte Count 1.52 10^3/uL (1.2-3.4); Absolute Monocyte Count 0.95 10^3/uL (0.1-0.8); Absolute Neutrophil Count 6.38 10^3/uL (1.2-6.7); Basophils % 0.9; Eosinophils % 7.3; HCT 39.2 % (40.0-50.0); HGB 13.3 g/dL (13.5-17.5); Immature Grans % 0.3; Lymphocytes % 15.7; MCHC 33.9 % (32.0-36.0); MCV 97 fL (80-95); MPV 9.1 fL (8.0-11.0); Monocytes % 9.8; Platelet Count 289 10^3/uL (130-400); RBC 4.03 10^6/uL (4.36-5.78); RDW 12.2 % (11.8-14.1); WBC 9.68 10^3/uL (4.4-10.8)
[2023-01-26 10:57] LABS: ALT 22 U/L (16-63); AST 11 U/L (15-37); Albumin 3.5 g/dL (3.4-5.0); Alkaline Phosphatase 155 U/L (46-116); BUN 36 mg/dL (7-18); Bilirubin, Total 0.2 mg/dL (0.2-1.0); CREATININE 2.2 mg/dL (0.70-1.30); Calcium 9.3 mg/dL (8.5-10.1); Chloride 104 mmol/L (98-107); Estimated GFR 32.03 (mL/min/1.73m2); FREE T4 0.91 ng/dL (0.76-1.46); Glucose 110 mg/dL (74-106); Potassium 5.1 mmol/L (3.5-5.1); Sodium 136 mmol/L (136-145); TSH 1.11 uIU/mL (0.36-3.74); Total Protein 7.6 g/dL (6.4-8.2)
[2023-01-26] MEDS: Normal Saline Flush 10 ML SYR IVP (11:03)
[2023-01-26] MEDS: Gadoterate meglumine 20 ML SYRINGE 10 ML IVP (11:04)
== END ==
PROVIDERS: PCP Nurse Practitioner Family; Visit Provider Internal Medicine Medical Oncology
DX: C34.32 Malignant neoplasm of lower lobe, left bronchus or lung (principal); C79.72 Secondary malignant neoplasm of left adrenal gland; C79.31 Secondary malignant neoplasm of brain
CPT/HCPCS: 70553; 80053; 84439; 84443; 85025

== ENCOUNTER 2023-02-02 18:15 | Outpatient (CLI) | payer OTHER, SELFPAY ==
[2023-02-02 12:37] LABS: Abs Immature Grans 0.03 10^3/uL (0.0-0.06); Absolute Basophil Count 0.08 10^3/uL (0.0-0.2); Absolute Eosinophil Count 0.79 10^3/uL (0.0-0.7); Absolute Lymphocyte Count 1.78 10^3/uL (1.2-3.4); Absolute Monocyte Count 1.07 10^3/uL (0.1-0.8); Absolute Neutrophil Count 6.98 10^3/uL (1.2-6.7); Basophils % 0.7; Eosinophils % 7.4; HCT 39.9 % (40.0-50.0); HGB 13.4 g/dL (13.5-17.5); Immature Grans % 0.3; Lymphocytes % 16.6; MCH 32.4 pg (27.0-33.0); MCHC 33.6 % (32.0-36.0); MCV 97 fL (80-95); MPV 9.3 fL (8.0-11.0); Platelet Count 266 10^3/uL (130-400); RBC 4.13 10^6/uL (4.36-5.78); RDW 12.1 % (11.8-14.1); RDW-SD 43.4 fL; WBC 10.73 10^3/uL (4.4-10.8)
[2023-02-02 13:06] LABS: ALT 24 U/L (16-63); AST 17 U/L (15-37); Albumin 3.5 g/dL (3.4-5.0); Alkaline Phosphatase 133 U/L (46-116); Anion Gap 8.8 mmol/L (3-11); BUN 38 mg/dL (7-18); Bilirubin, Total 0.3 mg/dL (0.2-1.0); CO2 25.2 mmol/L (21.0-32.0); CREATININE 2.2 mg/dL (0.70-1.30); Calcium 9.2 mg/dL (8.5-10.1); Chloride 101 mmol/L (98-107); Estimated GFR 32.03 (mL/min/1.73m2); Glucose 105 mg/dL (74-106); Potassium 4.8 mmol/L (3.5-5.1); Sodium 135 mmol/L (136-145); TSH 1.37 uIU/mL (0.36-3.74); Total Protein 7.7 g/dL (6.4-8.2)
== END 2023-02-02 18:16 | disposition home or self-care (01) ==
LOC: LBO 18:15
PROVIDERS: PCP Nurse Practitioner Family; Visit Provider Nurse Practitioner Family
DX: Z79.899 Other long term (current) drug therapy (principal)
CPT/HCPCS: 36415; 80053; 84439; 84443; 85025

== ENCOUNTER → 2023-03-12 02:07 | Outpatient (CLI) | payer OTHER, SELFPAY ==
--- NOTE | 2023-03-12 | DI.CT_ITS ---
Exam(s) CT CHEST/ABD WO EXAM: CT CHEST/ABD WO CLINICAL HISTORY: LUNG CA,C34.30,METASTATIC,ASSESS TREATMENT RESPONSE,C34.30. TECHNIQUE: Imaging Protocol: Axial CT angiography was performed with multi-slice acquisition and mu lti-planar and/or 3D reconstructions. CONTRAST MATERIAL: Noncontrast due to low GFR. COMPARISON: CT CT CHEST/ABD/PEL W from 12/08/2022 FINDINGS: CHEST: Pulmonary Arteries: No evidence of filling defects to suggest pulmonary emboli. Tracheobronchial tree: No bronchiectasis or mucus plugging. Mediastinum and Sammie: No dominant adenopathy or fluid collection. Pulmonary parenchyma: Stable area of scarring in posterior left lower lobe. Mild emphysematous hernandez es. Pleura: No effusion. No pneumothorax. Heart: The heart is notdilated. coronary artery calcifications are seen. Soft tissues: Mild bilater al gynecomastia. Aorta: Thoracic aorta non-dilated. Atherosclerotic changes. Bones: Unremarkable for age. Tubes, Catheters, and Lines: None. ABDOMEN and PELVIS: Liver: Normal size. Normal density. No suspicious measurable mass. Portal, Superior Mesenteric, and Splenic Veins: Unremarkable. Gallbladder and Biliary Tract: No radiodense calculus. No biliary dilatation. Pancreas: Normal density, no abnormal calcifications or inflammatory process. Spleen: Normal. Adrenals: No masses seen. Kidneys: Normal size, contour and axis. No radiodense stones. No obstructive uropathy. Nonobstructin g stone lower pole right kidney. Bilateral renal cysts, unchanged. No follow-up recommended. No mukherjee spicious masses seen. Vasculature: Infrarenal common distal abdominal aortic aneurysm measured at 3.3 cm, unchanged from pr ior. Heavy calcification of the abdominal aorta and origins of the SMA and renal arteries. Bowel: No obstruction or bowel wall thickening. Appendix is unremarkable. Diverticulosis. No evidenc e of diverticulitis. Peritoneal Cavity: No ascites, collection or mesenteric inflammatory response. Lymph Nodes: Within normal limits. Soft Tissues: Unremarkable. IMPRESSION: 1. Stable appearance of area of scarring in lobe. No new new findings. 2. No evidence of metastatic disease in the abdomen. Stable 3.3 cm abdominal aortic aneurysm. RADIATION DOSE DELIVERED: 803.51mGy.cm Total DLP DATA REPOSITORY: All CT scans at this facility are submitted to the National Radiology Data Registry (NRDR) Dose Index Registry (DIR) with the [employer] (ACR). RADIATION OPTIMIZATION: All CT scans at this facility use at least one of these dose optimization te chniques: automated exposure control; mA and/or kV adjustment per patient size (includes targeted exa ms where dose is matched to clinical indication); or iterative reconstruction.
[2023-03-12] MEDS: Barium Sulfate 2% W/V-Creamy Vanilla Smoothie 450 ML BTL PO (13:36)
[2023-03-12 13:45] LABS: Abs Immature Grans 0.06 10^3/uL (0.0-0.06); Absolute Eosinophil Count 0.82 10^3/uL (0.0-0.7); Absolute Lymphocyte Count 1.95 10^3/uL (1.2-3.4); Absolute Monocyte Count 0.86 10^3/uL (0.1-0.8); Absolute Neutrophil Count 5.44 10^3/uL (1.2-6.7); Basophils % 1.1; Eosinophils % 8.9; HCT 43.9 % (40.0-50.0); HGB 14.6 g/dL (13.5-17.5); Immature Grans % 0.7; Lymphocytes % 21.1; MCHC 33.3 % (32.0-36.0); MCV 96 fL (80-95); MPV 9.5 fL (8.0-11.0); Monocytes % 9.3; Neutrophils % 58.9; Platelet Count 317 10^3/uL (130-400); RBC 4.56 10^6/uL (4.36-5.78); RDW-SD 42.7 fL; WBC 9.23 10^3/uL (4.4-10.8)
[2023-03-12 14:01] LABS: ALT 15 U/L (16-63); AST 15 U/L (15-37); Albumin 3.8 g/dL (3.4-5.0); Alkaline Phosphatase 141 U/L (46-116); Anion Gap 6.3 mmol/L (3-11); BUN 35 mg/dL (7-18); Bilirubin, Total 0.4 mg/dL (0.2-1.0); CO2 28.7 mmol/L (21.0-32.0); CREATININE 2.4 mg/dL (0.70-1.30); Calcium 9.8 mg/dL (8.5-10.1); Chloride 101 mmol/L (98-107); Estimated GFR 28.85 (mL/min/1.73m2); FREE T4 1.04 ng/dL (0.76-1.46); Glucose 88 mg/dL (74-106); Potassium 5.2 mmol/L (3.5-5.1); Sodium 136 mmol/L (136-145); TSH 0.88 uIU/mL (0.36-3.74); Total Protein 8.5 g/dL (6.4-8.2)
== END ==
PROVIDERS: PCP Nurse Practitioner Family; Visit Provider Nurse Practitioner Family
DX: C34.30 Malignant neoplasm of lower lobe, unspecified bronchus or lung (principal)
CPT/HCPCS: 71250; 74150; 80053; 83735; 84439; 84443; 85025

== ENCOUNTER 2023-03-23 12:29 | Outpatient (CLI) | payer OTHER, SELFPAY ==
[2023-03-23 09:47] LABS: Abs Immature Grans 0.03 10^3/uL (0.0-0.06); Absolute Basophil Count 0.08 10^3/uL (0.0-0.2); Absolute Eosinophil Count 0.97 10^3/uL (0.0-0.7); Absolute Lymphocyte Count 1.62 10^3/uL (1.2-3.4); Absolute Neutrophil Count 5.18 10^3/uL (1.2-6.7); Basophils % 0.9; Eosinophils % 10.9; HGB 14.3 g/dL (13.5-17.5); Immature Grans % 0.3; Lymphocytes % 18.2; MCH 32.7 pg (27.0-33.0); MCV 96 fL (80-95); MPV 9.4 fL (8.0-11.0); Monocytes % 11.3; Neutrophils % 58.4; Platelet Count 242 10^3/uL (130-400); RBC 4.37 10^6/uL (4.36-5.78); RDW 12.2 % (11.8-14.1); RDW-SD 43.1 fL; WBC 8.88 10^3/uL (4.4-10.8)
[2023-03-23 10:11] LABS: ALT 23 U/L (16-63); AST 18 U/L (15-37); Albumin 3.6 g/dL (3.4-5.0); Alkaline Phosphatase 125 U/L (46-116); Anion Gap 7.7 mmol/L (3-11); BUN 36 mg/dL (7-18); Bilirubin, Total 0.3 mg/dL (0.2-1.0); CO2 26.3 mmol/L (21.0-32.0); CREATININE 2.2 mg/dL (0.70-1.30); Calcium 9.5 mg/dL (8.5-10.1); Chloride 103 mmol/L (98-107); Estimated GFR 32.03 (mL/min/1.73m2); Glucose 103 mg/dL (74-106); Potassium 5.3 mmol/L (3.5-5.1); Sodium 137 mmol/L (136-145); TSH 2.15 uIU/mL (0.36-3.74); Total Protein 7.9 g/dL (6.4-8.2)
== END 2023-03-23 12:30 | disposition home or self-care (01) ==
LOC: LBO 12:30
PROVIDERS: PCP Nurse Practitioner Family; Visit Provider Nurse Practitioner Family
DX: C34.30 Malignant neoplasm of lower lobe, unspecified bronchus or lung (principal); Z79.899 Other long term (current) drug therapy
CPT/HCPCS: 36415; 80053; 84439; 84443; 85025

== ENCOUNTER → 2023-08-10 03:07 | Outpatient (CLI) | payer OTHER, SELFPAY ==
[2023-08-10 10:27] LABS: Abs Immature Grans 0.04 10^3/uL (0.0-0.06); Absolute Basophil Count 0.09 10^3/uL (0.0-0.2); Absolute Lymphocyte Count 1.63 10^3/uL (1.2-3.4); Absolute Monocyte Count 0.91 10^3/uL (0.1-0.8); Absolute Neutrophil Count 5.38 10^3/uL (1.2-6.7); HCT 45.5 % (40.0-50.0); HGB 15.5 g/dL (13.5-17.5); Immature Grans % 0.4 %; MCH 32.2 pg (27.0-33.0); MCHC 34.1 % (32.0-36.0); MCV 95 fL (80-95); MPV 9.8 fL (8.0-11.0); Monocytes % 10.1 %; Neutrophils % 59.5 %; Platelet Count 275 10^3/uL (130-400); RBC 4.81 10^6/uL (4.36-5.78); RDW 12.4 % (11.8-14.1); RDW-SD 43.1 fL; WBC 9.05 10^3/uL (4.4-10.8)
[2023-08-10 10:40] LABS: ALT 19 U/L (16-63); AST 16 U/L (15-37); Albumin 3.7 g/dL (3.4-5.0); Alkaline Phosphatase 139 U/L (46-116); Anion Gap 8.7 mmol/L (3-11); BUN 32 mg/dL (7-18); Bilirubin, Total 0.4 mg/dL (0.2-1.0); CO2 24.3 mmol/L (21.0-32.0); CREATININE 2.3 mg/dL (0.70-1.30); Calcium 9.1 mg/dL (8.5-10.1); Chloride 103 mmol/L (98-107); Estimated GFR 30.17 (mL/min/1.73m2); Glucose 101 mg/dL (74-106); Potassium 5.1 mmol/L (3.5-5.1); Sodium 136 mmol/L (136-145); Total Protein 8.1 g/dL (6.4-8.2)
[2023-08-10] MEDS: Normal Saline - Diluent 50 ML VIAL IJ (11:22)
[2023-08-10] MEDS: Omnipaque 350 MG/ML 500 ML BTL-Imaging package 100 ML IJ (11:23)
[2023-08-10] MEDS: Barium Sulfate 2% W/V-Berry Smoothie 450 ML BTL PO (11:24)
--- NOTE | 2023-08-10 11:26 | DI.CT_ITS ---
Exam(s) CT CHEST/ABD W EXAM: CT CHEST/ABD W CLINICAL HISTORY: Non-small cell lung CA, lower lobe, C34.30; Lt adrenal neoplasm, C79.72;. TECHNIQUE: Imaging Protocol: Axial computed tomography images with coronal and sagittal reformatted images were created and reviewed CONTRAST MATERIAL: Intravenous: Omnipaque 350 Contrast volume:100 ml Oral: yes / COMPARISON: CT CT CHEST W from 02/14/[address] CHEST/ABD/PEL W from 12/08/[address] CHEST/ABD WO from 03/12/2023 FINDINGS: CHEST: Tracheobronchial tree: Patent. Pulmonary parenchyma: No consolidation or dominant measurable mass. Stable area of scarring left low er lobe. Mild emphysematous changes upper lobes. Pleura: No effusion or pneumothorax. Lymph nodes: Within normal limits. Aorta: Thoracic portion non-dilated. Atherosclerotic changes. Heart: Normal size. Coronary artery calcifications are present. No pericardial effusion. Stable ar ea of fat density between the right and left atria. Bones: Unremarkable for age. No lytic or blastic lesions.No compression fractures. Soft tissues: Unremarkable. ABDOMEN and PELVIS: Liver: Normal density. No measurable mass. Gallbladder and biliary tract: No evidence of stones or wall thickening. No biliary dilatation. Pancreas: Normal density, no abnormal calcifications or inflammatory process. Spleen: Normal. Kidneys: Normal size, contour and axis. Stable nonobstructing stone lower pole right kidney. Bilater al renal cysts. No suspicious masses seen. Adrenal glands: Stable mild enlargement of the left adrenal gland Aorta: Stable aneurysm of the abdominal aorta with mural thrombus. Lymph nodes: Within normal limits. Soft tissues: Small fatty containing umbilical hernia. Bowel: No obstruction or bowel wall thickening. Peritoneal cavity: No ascites. No focal collection. No mesenteric inflammatory response. Bones: Unremarkable for age. No lytic or blastic lesions. IMPRESSION: Stable area of left lower lobe scarring. No evidence of recurrence mass or adenopathy. Stable mild enlargement of the left adrenal gland. RADIATION DOSE DELIVERED: Total DLP DATA REPOSITORY: All CT scans at this facility are submitted to the National Radiology Data Registry (NRDR) Dose Index Registry (DIR) with the [employer] (ACR). RADIATION OPTIMIZATION: All CT scans at this facility use at least one of these dose optimization te chniques: automated exposure control; mA and/or kV adjustment per patient size (includes targeted exa ms where dose is matched to clinical indication); or iterative reconstruction.
== END ==
PROVIDERS: PCP Nurse Practitioner Family; Visit Provider Nurse Practitioner Family
DX: C79.72 Secondary malignant neoplasm of left adrenal gland (principal)
CPT/HCPCS: 80053; 71260; 74160; 85025

== ENCOUNTER 2023-11-30 13:55 | Outpatient (CLI) | payer OTHER, SELFPAY ==
[2023-11-30 12:15] LABS: Abs Immature Grans 0.03 10^3/uL (0.0-0.06); Absolute Lymphocyte Count 1.93 10^3/uL (1.2-3.4); Absolute Monocyte Count 0.78 10^3/uL (0.1-0.8); Absolute Neutrophil Count 4.89 10^3/uL (1.2-6.7); Basophils % 1.2 %; Eosinophils % 10.4 %; HCT 46.4 % (40.0-50.0); HGB 15.3 g/dL (13.5-17.5); Immature Grans % 0.3 %; Lymphocytes % 22.4 %; MCH 31.8 pg (27.0-33.0); MCV 97 fL (80-95); MPV 9.7 fL (8.0-11.0); Neutrophils % 56.7 %; Platelet Count 267 10^3/uL (130-400); RBC 4.81 10^6/uL (4.36-5.78); RDW 12.5 % (11.8-14.1); RDW-SD 45.1 fL; WBC 8.63 10^3/uL (4.4-10.8)
[2023-11-30 12:27] LABS: ALT 21 U/L (16-63); AST 17 U/L (15-37); Albumin 3.6 g/dL (3.4-5.0); Alkaline Phosphatase 132 U/L (46-116); Anion Gap 8.3 mmol/L (3-11); BUN 29 mg/dL (7-18); Bilirubin, Total 0.36 mg/dL (0.2-1.0); CO2 24.7 mmol/L (21.0-32.0); CREATININE 2.1 mg/dL (0.70-1.30); Calcium 9.1 mg/dL (8.5-10.1); Chloride 106 mmol/L (98-107); Estimated GFR 33.66 (mL/min/1.73m2); Glucose 96 mg/dL (74-106); Potassium 5.2 mmol/L (3.5-5.1); Sodium 139 mmol/L (136-145); Total Protein 7.9 g/dL (6.4-8.2)
== END 2023-11-30 13:56 | disposition home or self-care (01) ==
LOC: LBO 13:55
PROVIDERS: PCP Nurse Practitioner Family; Visit Provider Internal Medicine Medical Oncology
DX: C34.30 Malignant neoplasm of lower lobe, unspecified bronchus or lung (principal); C79.72 Secondary malignant neoplasm of left adrenal gland
CPT/HCPCS: 36415; 80053; 85025

== ENCOUNTER 2024-01-05 19:05 | Inpatient (IN) | payer OTHER, MEDICARE, SELFPAY ==
[2024-01-05 19:17] VITALS: BP 138/118; PULSE 90; RESP 20; TEMP 36.3
--- NOTE | 2024-01-05 19:30 | DI.CT_ITS ---
Exam(s) CT ABDOMEN PELVIS W EXAM: CT ABDOMEN PELVIS W CLINICAL HISTORY: severe LLQ abd pain, voluntary guarding. TECHNIQUE: Imaging Protocol: Axial computed tomography images with coronal and sagittal reformatted images were created and reviewed CONTRAST MATERIAL: Intravenous: Omnipaque 350 Contrast volume:100 ml Oral: / no COMPARISON: CT CT CHEST/ABD W from 08/10/2023 FINDINGS: ABDOMEN and PELVIS: Lung Bases: No acute findings. Left basilar scarring. Small hiatal hernia. Liver: Normal density. No suspicious mass. Gallbladder and biliary tract: No radiodense calculus. No biliary dilation. Pancreas: Normal density. No abnormal calcifications or inflammatory process. No evidence of mass. Spleen: Normal. Kidneys: Normal size, contour and axis. Nonobstructing stone lower pole right kidney again noted. S table bilateral renal cysts. No follow-up recommended. No obstructive uropathy. No suspicious edith s seen. Adrenal glands: No masses seen. Vasculature: Stable appearance of abdominal aortic aneurysm with mural thrombus, measuring 3.5 cm. S evere atherosclerotic changes of the iliac arteries. Severe stenosis SMA. Heavy calcification causi ng severe stenosis at the origin of the right renal artery. Soft tissues: Small fat containing umbilical hernia. Small amount of fat in the right inguinal canal . Bladder: Not well distended. Mild wall thickening. No calculi.No focal mass. Bowel: No obstruction. Diverticulosis. No evidence of diverticulitis. Appendix normal. Appendix n ormal. Peritoneal cavity: No ascites. No focal collection. No mesenteric inflammatory response. Bones: Unremarkable for age. Reproductive organs: Prostate slightly enlarged. Lymph nodes: No pathologically enlarged lymph nodes. IMPRESSION:: Mild diffuse bladder wall thickening could indicate cystitis. Prostate slightly enlarg ed. Stable abdominal aortic aneurysm. Severe atherosclerotic changes of branch vessels. Diverticulosis but no evidence of diverticulitis. RADIATION DOSE DELIVERED: 428.72mGy.cm Total DLP DATA REPOSITORY: All CT scans at this facility are submitted to the National Radiology Data Registry (NRDR) Dose Index Registry (DIR) with the [employer] (ACR). RADIATION OPTIMIZATION: All CT scans at this facility use at least one of these dose optimization te chniques: automated exposure control; mA and/or kV adjustment per patient size (includes targeted exa ms where dose is matched to clinical indication); or iterative reconstruction.
--- NOTE | 2024-01-05 19:37 | W.ED.GENAD ---
Discharge Plan Disposition Patient Disposition: Admit to [facility] Condition: Serious Discharge Details Clinical Impression: Abdominal pain, Metastatic primary lung cancer Primary Care Provider: Javier Hernandez ED Provider: Aubrie Melissa Home Meds and New Rx's Prescriptions: No Action citalopram 20 mg tablet 20 mg PO DAILY Qty: 90 3RF citalopram 10 mg tablet 10 mg PO DAILY Qty: 90 3RF omeprazole 20 mg capsule,delayed release(DR/EC) 20 mg PO DAILY Qty: 90 3RF losartan 25 mg tablet 12.5 mg PO DAILY Qty: 45 3RF albuterol sulfate 90 mcg/actuation HFA aerosol inhaler 2 puff inhalation QID Qty: 18 12RF clonazepam [Klonopin] 0.5 mg tablet 0.5 mg PO HS Qty: 90 1RF mirtazapine 45 mg tablet 45 mg PO QHS Patient Comments: [place] [facility] [place] AeroChamber Plus Z Stat Sm Msk 1 EACH spacer 1 ea Miscellaneous DIRECTED Qty: 1 0RF Patient Comments: pt. states he does not use Rx Instructions: for use with [facility]I, please dispense appropriate size atorvastatin 20 mg tablet 20 mg PO DAILY Patient Comments: preventative - surgery not a viable option with the status of my stage IV Cancer levetiracetam 500 mg tablet 500 mg PO BID Patient Comments: radiation to the brain meclizine 12.5 mg tablet 12.5 mg PO BID Patient Comments: sudden dizziness, random vision changes HPI General Mode of arrival: ambulatory. Date/Time Provider Initiated Documentation: 01/05/24 19:10. Limitations to Documentation: no limitations. Information obtained by: patient. HPI Narrative: 68yo M with hx metastatic lung cancer not currently on chemotherapy, CKD, asthma, presenting for LLQ abdominal pain for 3- 4 days. Pain is sharp, constant, severe, and has been worsening. Has not taken any pain medication. Associated nausea and vomiting; able to tolerate only small sips of fluids otherwise vomits. Nonbloody nonbilious. Not eating any solids for the past few days. Last BM this morning, small, firm, nonbloody. Has had similar symptoms in the past which resolved without intervnetion and have never been this bad before. Otherwise in his usual state of health with no fevers, rash, dysuria, hematuria, chest pain, shortness of breath, or other concerns. Related Data Home Medications ?Medication ?Instructions ?Recorded ?Confirmed inhalational spacing device ##1 05/22/15 01/05/24 (AeroChamber Plus Z Stat Small Mask) citalopram 10 mg tablet 10 mg PO DAILY #90 tabs 10/29/22 01/05/24 citalopram 20 mg tablet 20 mg PO DAILY #90 tabs 10/29/22 01/05/24 omeprazole 20 mg capsule,delayed 20 mg PO DAILY #90 caps 10/29/22 01/05/24 release losartan 25 mg tablet 12.5 mg (1/2 x 25 mg) PO DAILY #45 02/06/23 01/05/24 tabs albuterol sulfate 90 mcg/actuation 2 puff inhalation QID #18 grams 04/27/23 01/05/24 aerosol inhaler clonazepam 0.5 mg tablet (Klonopin) 0.5 mg PO HS #90 tabs 05/11/23 01/05/24 mirtazapine 45 mg tablet 45 mg PO QHS 08/12/23 01/05/24 atorvastatin 20 mg tablet 20 mg PO DAILY blocked coratid 01/05/24 01/05/24 arteries levetiracetam 500 mg tablet 500 mg PO BID proactive - prevent 01/05/24 01/05/24 seizures meclizine 12.5 mg tablet 12.5 mg PO BID sudden loss of 01/05/24 01/05/24 balance Previous Rx's ?Medication ?Instructions ?Recorded inhalational spacing device ##1 05/22/15 (AeroChamber Plus Z Stat Small Mask) citalopram 10 mg tablet 10 mg PO DAILY #90 tabs 10/29/22 citalopram 20 mg tablet 20 mg PO DAILY #90 tabs 10/29/22 omeprazole 20 mg capsule,delayed 20 mg PO DAILY #90 caps 10/29/22 release losartan 25 mg tablet 12.5 mg (1/2 x 25 mg) PO DAILY #45 02/06/23 tabs albuterol sulfate 90 mcg/actuation 2 puff inhalation QID #18 grams 04/27/23 aerosol inhaler clonazepam 0.5 mg tablet (Klonopin) 0.5 mg PO HS #90 tabs 05/11/23 Allergies Allergy/AdvReac Type Severity Reaction Status Date / Time theophylline AdvReac Mild Nausea and Verified 01/05/24 19:24 vomiting General Stated Complaint: Abd Prob RENETTA: 3 Review of Systems Narrative: see HPI Exam Narrative Exam Narrative: General: Alert, well appearing, well nourished, in no acute distress. Head: Normocephalic, atraumatic Neck: Trachea midline, ?Neck supple. ENT: ?MMM.? Cardiac: ?RRR, no murmurs appreciated Resp: No respiratory distress. CTAB. Abd: ?Soft, non-distended, LLQ TTP with voluntary guarding. : ?No suprapubic tenderness. No CVA tenderness. Extremities: ?No deformities.? No peripheral edema. Neurologic: GCS 15. ? Moves all extremities freely against gravity Course Vital Signs Vital signs: Vital Signs Temperature 36.3 C L 01/05/24 19:17 Pulse 90 01/05/24 19:17 Respiratory Rate 20 01/05/24 19:17 Blood Pressure 138/118 H 01/05/24 19:17 Temperature 36.3 C L 01/05/24 19:17 Temperature Source Oral 01/05/24 19:17 Pulse 90 01/05/24 19:17 Respiratory Rate 20 01/05/24 19:17 Respiratory Effort Normal, Non-Labored 01/05/24 19:23 Blood Pressure 138/118 H 01/05/24 19:17 Pain Level 10 01/05/24 19:17 Medical Decision Making 68yo M with hx metastatic lung cancer not currently on chemotherapy, CKD, asthma, presenting for LLQ abdominal pain for 3- 4 days with associated vomiting and decreased PO. Vital signs reassuring on arrival, LLQ tenderness on exam with voluntary guarding. Will treat symptoms with tylenol, morphine, zofran while workup is pending. -Labs reviewed as below, CBC with mild leukocytosis and no anemia, CMP with Cr 2.3 (at baseline on [facility] record review) and no actionable abnormalities (does have slightly elevated gap suspect 2/t ketones in the setting of decreased PO), lipase normal, lactate normal, UA not infected. -CT abd pelvis independently reviewed, no obstruction or free fluid on my view; radiology read below with no acute findings. On reassessment he reports symptoms have improved, pain now tolerable. Does still have significant LLQ tenderness on exam, now with no guarding. I remain concerned for acute diverticulitis despite negative CT. Discussed with [facility] hospitalist Dr. Hughes; will start antibiotics and plan for admission. Awaiting admission orders and transfer to the floor. Imaging Data Radiologic Study: Imaging: CT Scan Radiologist's impression: IMPRESSION: 1. Minimal anterior urinary bladder wall thickening with minimal adjacent fat stranding, likely secondary to partially decompressed state, although cystitis possible. 2. Other (less critical/noncritical/incidental) findings as above; please refer to the body of report for further details. Lab Data Lab results reviewed: Yes I reviewed the patient's lab results. Labs: Laboratory Tests Range/Units 01/05/24 01/05/24 14:35 19:51 WBC (4.4-10.8) 10^3/uL 13.36 H RBC (4.36-5.78) 10^6/uL 5.15 Hgb (13.5-17.5) g/dL 16.5 Hct (40.0-50.0) % 46.9 MCV (80-95) fL 91 MCH (27.0-33.0) pg 32.0 MCHC (32.0-36.0) % 35.2 RDW (11.8-14.1) % 11.9 Plt Count (130-400) 10^3/uL 276 MPV (8.0-11.0) fL 9.6 Immature Gran % % 0.4 Neutrophils % % 66.5 Lymphocytes % % 16.8 Monocytes % % 10.6 Eosinophils % % 5.1 Basophils % % 0.6 Nucleated RBC % (0.0-0.3) % 0.0 Absolute Neutrophils (1.2-6.7) 10^3/uL 8.88 H Absolute Lymphocytes (1.2-3.4) 10^3/uL 2.24 Absolute Monocytes (0.1-0.8) 10^3/uL 1.42 H Absolute Eosinophils (0.0-0.7) 10^3/uL 0.68 Absolute Basophils (0.0-0.2) 10^3/uL 0.08 VBG Lactate (0.6-1.4) mmol/L 1.4 Sodium (136-145) mmol/L 136 Potassium (3.5-5.1) mmol/L 4.9 Chloride (98-107) mmol/L 101 Carbon Dioxide (21.0-32.0) mmol/L 19.3 L Anion Gap (3-11) mmol/L 15.7 H BUN (7-18) mg/dL 29 H Creatinine (0.70-1.30) mg/dL 2.3 H Est GFR (CKD-EPI 2020) (mL/min/1.73m2) 30.17 Glucose (74-106) mg/dL 111 H Calcium (8.5-10.1) mg/dL 9.6 Total Bilirubin (0.2-1.0) mg/dL 0.63 AST (15-37) U/L 21 ALT (16-63) U/L 26 Alkaline Phosphatase (46-116) U/L 133 H Total Protein (6.4-8.2) g/dL 8.4 H Albumin (3.4-5.0) g/dL 4.2 Lipase (16-77) U/L 50 Urine Color (Yellow) Yellow Urine Clarity (Clear) Clear Urine pH (5-8) 6.0 Ur Specific [place] (1.005-1.025) 1.015 Urine Protein (Neg-Trace) mg/dL 30 H Urine Ketones (Negative) mg/dL Negative Urine Blood (Negative) Small H Urine Nitrite (Negative) Negative Urine Bilirubin (Negative) Negative Urine Urobilinogen (Up to 0.2) mg/dL 0.2 Ur Leukocyte Esterase (Negative) Negative Urine RBC (0-2) HPF 3-5 H Urine WBC (0-5) HPF 3-5 Ur Epithelial Cells (Negative) HPF Rare Urine Crystals Not Applicable Urine Bacteria (Negative) HPF Few Urine Mucus Not Applicable Urine Other (Negative) Rare [place] Ur Culture Indicated? No Urine Glucose (Negative) mg/dL Negative Quality:SDOH Health Related Social Needs: No Data to Display PFSH All Active Problems (Updated 01/05/24 @ 22:09 by Aubrie Melissa MD) Metastatic primary lung cancer (Acute) Abdominal pain (Acute) Abdominal pain (Acute) Right sided abdominal pain (Acute) Chronic kidney disease (Chronic) Elevated serum creatinine (Acute) Fatigue (Acute) Cancer meds Essential hypertension (Acute 11/22/12) Stage IV adenocarcinoma of lung (Acute) Kidney and brain mets Mass of left lung (Acute) Shortness of breath (Acute) Hyperplastic colon polyp (Acute) Anxiety (Acute) COPD (chronic obstructive pulmonary disease) (Acute 11/24/12) Diverticulosis (Acute 10/31/16) Low back pain (Acute) Smoker (Acute) Currently Tubular adenoma (Acute 10/31/16) 10/31/16, three tubular adenomas Vestibular neuronitis (Acute 01/13/13) Medical History Hepatitis C 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 states PCP told him this History of asthma Surgical History Hx of hernia repair History of back surgery buldging disc-1999 Colonoscopy - MAC (10/31/16) Family History Mother Heart disease Emphysema lung Asthma Father Alcohol abuse Lung cancer Sister Depression Breast cancer Mets to lung Sister Depression Sister Stomach cancer Sister No problems noted. Brother Factor 5 Leiden mutation, heterozygous Obese Lung cancer Daughter No problems noted. Daughter No problems noted. Social History Smoking/Tobacco Use Status: Current every day Tobacco Type: cigarettes Tobacco: How many years used: 54 Quit status: not considering quitting Smoking risk assessment performed?: Yes Alcohol Intake: former Drug use: Occasionally Substance use type: marijuana Details: marijuana: t-3, bowl Caregiver/Support person: No Household members: spouse Housing: house Pets and animals: No Sexually active: No Do you think of yourself as: straight/heterosexual Current gender identity: male What is your relationship status?: How often do you talk on the phone with friends or family?: decline to answer How often do you get together with friends or relatives?: decline to answer How often do you attend bahai or yazidism services?: decline to answer Do you belong to any clubs or organized social groups?: decline to answer Panel score (0-1 are the most socially isolated patients): 1 What type of physical activity do you participate in: decline to answer Duration: decline to answer Frequency: decline to answer Sherly/Yazdanism: No preference Special sherly needs: No Seatbelt use: always Drive intox or ride w/intox 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
[2024-01-05] MEDS: MORPHine 4 MG/ML SYR IVP (19:44)
[2024-01-05] MEDS: Ondansetron 4 MG/2 ML VIAL IVP (19:44)
[2024-01-05] MEDS: Acetaminophen 500 MG TAB 1000 MG PO (19:45)
[2024-01-05] MEDS: Omnipaque 350 MG/ML 100 ML BTL IJ (19:47)
[2024-01-05 19:48] LABS: Lactate 1.4 mmol/L (0.6-1.4)
[2024-01-05 19:50] LABS: Abs Immature Grans 0.05 10^3/uL (0.0-0.06); Absolute Basophil Count 0.08 10^3/uL (0.0-0.2); Absolute Eosinophil Count 0.68 10^3/uL (0.0-0.7); Basophils % 0.6 %; Eosinophils % 5.1 %; HCT 46.9 % (40.0-50.0); HGB 16.5 g/dL (13.5-17.5); Immature Grans % 0.4 %; Lymphocytes % 16.8 %; MCHC 35.2 % (32.0-36.0); MCV 91 fL (80-95); MPV 9.6 fL (8.0-11.0); Monocytes % 10.6 %; Neutrophils % 66.5 %; Platelet Count 276 10^3/uL (130-400); RBC 5.15 10^6/uL (4.36-5.78); RDW 11.9 % (11.8-14.1); RDW-SD 39.8 fL; WBC 13.36 10^3/uL (4.4-10.8)
[2024-01-05] MEDS: Normal Saline - Diluent 50 ML VIAL IV (19:51)
[2024-01-05 19:52] LABS: Absolute Lymphocyte Count 2.24 10^3/uL (1.2-3.4); Absolute Monocyte Count 1.42 10^3/uL (0.1-0.8); Absolute Neutrophil Count 8.88 10^3/uL (1.2-6.7)
[2024-01-05 19:56] LABS: Bilirubin Negative (Negative); Blood Small (Negative); Clarity Clear (Clear); Glucose Negative (Negative); Ketones Negative (Negative); Leukocyte Esterase Negative (Negative); Nitrite Negative (Negative); Specific Gravity 1.015 (1.005-1.025); Urobilinogen 0.2 mg/dL (Up to 0.2)
[2024-01-05 20:10] LABS: ALT 26 U/L (16-63); AST 21 U/L (15-37); Albumin 4.2 g/dL (3.4-5.0); Alkaline Phosphatase 133 U/L (46-116); Anion Gap 15.7 mmol/L (3-11); BUN 29 mg/dL (7-18); Bilirubin, Total 0.63 mg/dL (0.2-1.0); CO2 19.3 mmol/L (21.0-32.0); CREATININE 2.3 mg/dL (0.70-1.30); Chloride 101 mmol/L (98-107); Estimated GFR 30.17 (mL/min/1.73m2); Glucose 111 mg/dL (74-106); Lipase 50 U/L (16-77); Potassium 4.9 mmol/L (3.5-5.1); Sodium 136 mmol/L (136-145); Total Protein 8.4 g/dL (6.4-8.2)
[2024-01-05 20:12] LABS: Bacteria Few HPF (Negative); C & S Indicated? No; Epithelial Cells Rare HPF (Negative)
[2024-01-05 20:16] LABS: Calcium 9.6 mg/dL (8.5-10.1)
--- NOTE | 2024-01-05 21:08 | DI.VRAD_ITS ---
PROCEDURE INFORMATION: Exam: CT Abdomen And Pelvis With Contrast Exam date and time: 01/05/2024 7:52 PM Age: 68 years old Clinical indication: Abdominal pain; Localized; Left lower quadrant (llq); Additional info: Severe llq abd pain, voluntary guarding TECHNIQUE: Imaging protocol: Computed tomography of the abdomen and pelvis with contrast. Contrast material: OMNIPAQUE 350; Contrast volume: 85 ml; Contrast route: INTRAVENOUS (IV); COMPARISON: CT CHEST/ABD W 08/10/2023 11:09 AM FINDINGS: Lungs: Minimal scarring within the left lower lobe. Minimal bilateral lower lobe bronchiolectasis. Diaphragm: Small-sized hiatal hernia. Liver: Mild hepatomegaly. Gallbladder and biliary ducts: Normal. Pancreas: Normal. Spleen: Normal. Adrenal glands: Normal. No mass. Kidneys and ureters: Bilateral simple renal cysts, for which no further evaluation necessary. Right nephrolithiasis. Stomach and bowel: Colonic diverticulosis. Appendix: Appendix normal. Intraperitoneal space: Unremarkable. No free air. No significant fluid collection. Vasculature: Atherosclerotic calcification of the visualized right coronary artery and distal thoracic aorta. Atherosclerotic disease of the abdominal aorta and iliac arteries. Atherosclerotic disease of the proximal celiac, SMA, and bilateral renal arteries. Infrarenal fusiform abdominal aortic aneurysm measuring up to 3.5 cm in maximal diameter, without evidence of leakage or rupture. Lymph nodes: Unremarkable. No enlarged lymph nodes. Urinary bladder: Minimal anterior urinary bladder wall thickening with minimal adjacent fat stranding, likely secondary to partially decompressed state, although cystitis possible. Reproductive: Unremarkable as visualized. Bones/joints: No acute abnormality. L5-S1 degenerative disc disease, disc space narrowing, vacuum phenomena, endplate sclerosis, and minimal osteophyte formation. Soft tissues: Small fat containing umbilical hernia. IMPRESSION: 1. Minimal anterior urinary bladder wall thickening with minimal adjacent fat stranding, likely secondary to partially decompressed state, although cystitis possible. 2. Other (less critical/noncritical/incidental) findings as above; please refer to the body of report for further details. Dictated and Authenticated by: Chemo Purdy MD. Ordering:MARY Alfred MD
[2024-01-05] MEDS: PIPERACILLIN/TAZO 3.375 GM in Normal Saline 50 ML IVPB (21:32)
--- NOTE | 2024-01-05 21:54 | W.PM.HP.N ---
Date of service: 01/05/24 Time of Service: 21:54 Assessment and Plan Assessment and plan (1) Abdominal pain: Status: Acute Assessment and plan: Much of this story -- save for the absence of natanael imaging signs -- suggests diverticultits: LLQ pain, change in bowels, chills, leukocytosis, and at least diverticulosis. I think there is enough suggestion to make at least a provisional diagnosis and will go ahead and treat as such: bowel rest, IVF and broad spectrum antibiotics (will continue Zosyn as is), along with prn analgesics and anti-emetics. Of course the presence of metatstatic lung cancer is notable but I do not see this relating to current presentation. Otherwise will continue usual meds as is. Reviewed ADs and requests DNR. History of Present Illness History of Present Illness Chief Complaint: LLQ pain Narrative: 68 male with h/o metastatic lung cancer (to brain, contralateral lung and adrenal he reports), diagnosed four years [facility], not currently on treatment -- here with 3 days of more or less constant , non-radiating LLQ pain, associated with some nausea/anorexia. He had not had a BM and took laxative 2 days [facility] with small output of stool. Pain has no relation to PO intake, position or to bowel movement. He has felt shivering chills but no documented fever. Here in ER findings of note for white count [address] showing colonic diverticulosis but no signs of diverticulitis. Otherwise slight thickening anterior bladder wall, likely decompression, cannot rule out cystitis, while urine showed only 3-5 WBC. Patient given presumptive diagnosis of diverticulitis and received Dose of Zosyn along woith 6 mg MS IV. States pain is much better. He noites that he had a somewhat similar, though less intense, episode some 20 years ago which resolved without intervention. Review of Systems Narrative: per HPI PFSH All Active Problems (Updated 01/05/24 @ 22:09 by Aubrie Melissa MD) Metastatic primary lung cancer (Acute) Abdominal pain (Acute) Abdominal pain (Acute) Right sided abdominal pain (Acute) Chronic kidney disease (Chronic) Elevated serum creatinine (Acute) Fatigue (Acute) Cancer meds Essential hypertension (Acute 11/22/12) Stage IV adenocarcinoma of lung (Acute) Kidney and brain mets Mass of left lung (Acute) Shortness of breath (Acute) Hyperplastic colon polyp (Acute) Anxiety (Acute) COPD (chronic obstructive pulmonary disease) (Acute 11/24/12) Diverticulosis (Acute 10/31/16) Low back pain (Acute) Smoker (Acute) Currently Tubular adenoma (Acute 10/31/16) 10/31/16, three tubular adenomas Vestibular neuronitis (Acute 01/13/13) Medical History Hepatitis C 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 states PCP told him this History of asthma Surgical History Hx of hernia repair History of back surgery buldging disc-1999 Colonoscopy - MAC (10/31/16) Family History Mother Heart disease Emphysema lung Asthma Father Alcohol abuse Lung cancer Sister Depression Breast cancer Mets to lung Sister Depression Sister Stomach cancer Sister No problems noted. Brother Factor 5 Leiden mutation, heterozygous Obese Lung cancer Daughter No problems noted. Daughter No problems noted. Social History Smoking/Tobacco Use Status: Current every day Tobacco Type: cigarettes Tobacco: How many years used: 54 Quit status: not considering quitting Smoking risk assessment performed?: Yes Alcohol Intake: former Drug use: Occasionally Substance use type: marijuana Details: marijuana: t-3, bowl Caregiver/Support person: No Household members: spouse Housing: house Pets and animals: No Sexually active: No Do you think of yourself as: straight/heterosexual Current gender identity: male What is your relationship status?: How often do you talk on the phone with friends or family?: decline to answer How often do you get together with friends or relatives?: decline to answer How often do you attend alevism or oriental orthodox services?: decline to answer Do you belong to any clubs or organized social groups?: decline to answer Panel score (0-1 are the most socially isolated patients): 1 What type of physical activity do you participate in: decline to answer Duration: decline to answer Frequency: decline to answer Sherly/Buddhist: No preference Special sherly needs: No Seatbelt use: always Drive intox or ride w/intox stunt driver: No Do you feel safe at home: Yes Do you feel safe in your relationship?: Yes Meds Allergies and Home Medications Allergies Allergy/AdvReac Type Severity Reaction Status Date / Time theophylline AdvReac Mild Nausea and Verified 01/05/24 19:24 vomiting Home Medications ?Medication ?Instructions ?Recorded ?Confirmed ?Type inhalational spacing device ##1 05/22/15 01/05/24 Rx (AeroChamber Plus Z Stat Small Mask) citalopram 10 mg tablet 10 mg PO DAILY #90 tabs 10/29/22 01/05/24 Rx citalopram 20 mg tablet 20 mg PO DAILY #90 tabs 10/29/22 01/05/24 Rx omeprazole 20 mg capsule,delayed 20 mg PO DAILY #90 caps 10/29/22 01/05/24 Rx release losartan 25 mg tablet 12.5 mg (1/2 x 25 mg) PO DAILY #45 02/06/23 01/05/24 Rx tabs albuterol sulfate 90 mcg/actuation 2 puff inhalation QID #18 grams 04/27/23 01/05/24 Rx aerosol inhaler clonazepam 0.5 mg tablet (Klonopin) 0.5 mg PO HS #90 tabs 05/11/23 01/05/24 Rx mirtazapine 45 mg tablet 45 mg PO QHS 08/12/23 01/05/24 History atorvastatin 20 mg tablet 20 mg PO DAILY blocked coratid 01/05/24 01/05/24 History arteries levetiracetam 500 mg tablet 500 mg PO BID proactive - prevent 01/05/24 01/05/24 History seizures meclizine 12.5 mg tablet 12.5 mg PO BID sudden loss of 01/05/24 01/05/24 History balance Exam Narrative Exam Narrative: BP 138/118 (initial, current , 90, 36.3, 20, 97%. HEENT atraumatic; neck supple; lungs few scattered rhonchi; heart RRR; abdomen +BS, soft, mild LLQ tenderness without rebound; rectal deferred; extremities w/o edema; neuro Ox3, lucid, moves all 4s Results Labs 01/05/24 19:35 01/05/24 19:35 Labs: Laboratory Results - last 24 hr 01/05/24 01/05/24 19:35 19:51 WBC 13.36 H RBC 5.15 Hgb 16.5 Hct 46.9 MCV 91 MCH 32.0 MCHC 35.2 RDW 11.9 Plt Count 276 MPV 9.6 Immature Gran % 0.4 Neutrophils % 66.5 Lymphocytes % 16.8 Monocytes % 10.6 Eosinophils % 5.1 Basophils % 0.6 Nucleated RBC % 0.0 Absolute Neutrophils 8.88 H Absolute Lymphocytes 2.24 Absolute Monocytes 1.42 H Absolute Eosinophils 0.68 Absolute Basophils 0.08 VBG Lactate 1.4 Sodium 136 Potassium 4.9 Chloride 101 Carbon Dioxide 19.3 L Anion Gap 15.7 H BUN 29 H Creatinine 2.3 H Est GFR (CKD-EPI 2020) 30.17 Glucose 111 H Calcium 9.6 Total Bilirubin 0.63 AST 21 ALT 26 Alkaline Phosphatase 133 H Total Protein 8.4 H Albumin 4.2 Lipase 50 Urine Color Yellow Urine Clarity Clear Urine pH 6.0 Ur Specific [place] 1.015 Urine Protein 30 H Urine Ketones Negative Urine Blood Small H Urine Nitrite Negative Urine Bilirubin Negative Urine Urobilinogen 0.2 Ur Leukocyte Esterase Negative Urine RBC 3-5 H Urine WBC 3-5 Ur Epithelial Cells Rare Urine Crystals Not Applicable Urine Bacteria Few Urine Mucus Not Applicable Urine Other Rare [place] Ur Culture Indicated? No Urine Glucose Negative Last Vital Signs Temp 36.3 C L 01/05/24 19:17 Pulse 90 01/05/24 19:17 Resp 20 01/05/24 19:17 BP 138/118 H 01/05/24 19:17 Time Spent Time spent with Patient: 40-54 minutes Time was spent: preparing to see the patient(eg.review tests), obtaining and/or reviewing separately otained hiistory, ordering medications,tests, procedures, referring, communicating with other health healthcare interpreter and indepentently interpreting results
[2024-01-05 22:08] VITALS: BP 132/80; PULSE 63; RESP 17; TEMP 37; O2SAT 93
--- NOTE | 2024-01-05 22:48 | W.PC.ACHO ---
Registration Status: Primary Language: Preferred Language: ED Information & Data Chief Complaint Abd Prob 01/05/24 19:37 Triage Note Patient presents to the ER c 01/05/24 19:17 /o of has not eaten since Thursday due to having left lower quadrant abdominal pain. Reported that he has been voiding small amount each time. state he had a small BM this morning. Patient reported that he has metastasis cancer Medical / Surgical History (Last Reviewed 01/05/24 @ 22:02 by Ta Hughes MD) Hepatitis C Alcohol abuse (05/24/13) Compulsive gambling (04/29/10) History of COPD History of asthma (Last Reviewed 01/05/24 @ 22:02 by Ta Hughes MD) Hx of hernia repair History of back surgery Colonoscopy - MAC (10/31/16) Most Recent Vital Signs Temperature 37 C 01/05/24 22:08 Temperature Source Temporal Artery Scan 01/05/24 22:08 Pulse 63 01/05/24 22:08 Respiratory Rate 17 01/05/24 22:08 Respiratory Effort Normal, Non-Labored 01/05/24 21:15 Respiratory Depth Normal 01/05/24 21:15 Respiratory Pattern Normal 01/05/24 21:15 Blood Pressure 132/80 01/05/24 22:08 Pulse Oximetry 93 01/05/24 22:08 Oxygen Delivery Method Room Air 01/05/24 22:08 Oxygen Flow Rate 0 01/05/24 22:08 Pain Level 2 01/05/24 22:08 Allergies theophylline Adverse Reaction (Mild, Verified 01/05/24 19:24) Nausea and vomiting pt. reports nausea and vomitting Precautions Isolation Standard precaution 01/05/24 19:23 Active Medications Generic Name Dose Route Start Last Admin Trade Name James PRN Reason Stop Dose Admin Iohexol 100 ml 01/05/24 20:00 01/05/24 19:47 Omnipaque 350 Mg/Ml 100 Ml Btl IJ 02/04/24 23:59 85 ml DIRECTED PANCHITO Administration Sodium Chloride 50 ml 01/05/24 20:00 01/05/24 19:51 Normal Saline - Diluent 50 Ml Vial IV 50 ml .FOR DI USE PANCHITO Administration IV IV Catheter Type [Right Saline Lock Antecubital] IV Catheter Gauge [Right 18 Antecubital] Diet Orders Category Date Time Status Nothing Per Oral [DIET] Nutrition 01/06/24 Breakfast Ordered Diagnostics 01/05/24 01/05/24 Range/Units 19:51 19:35 WBC 13.36 H (4.4-10.8) 10^3/uL RBC 5.15 (4.36-5.78) 10^6/uL Hgb 16.5 (13.5-17.5) g/dL Hct 46.9 (40.0-50.0) % MCV 91 (80-95) fL MCH 32.0 (27.0-33.0) pg MCHC 35.2 (32.0-36.0) % RDW 11.9 (11.8-14.1) % Plt Count 276 (130-400) 10^3/uL MPV 9.6 (8.0-11.0) fL Immature Gran % 0.4 % Neutrophils % 66.5 % Lymphocytes % 16.8 % Monocytes % 10.6 % Eosinophils % 5.1 % Basophils % 0.6 % Nucleated RBC % 0.0 (0.0-0.3) % Absolute Neutrophils 8.88 H (1.2-6.7) 10^3/uL Absolute Lymphocytes 2.24 (1.2-3.4) 10^3/uL Absolute Monocytes 1.42 H (0.1-0.8) 10^3/uL Absolute Eosinophils 0.68 (0.0-0.7) 10^3/uL Absolute Basophils 0.08 (0.0-0.2) 10^3/uL VBG Lactate 1.4 (0.6-1.4) mmol/L Sodium 136 (136-145) mmol/L Potassium 4.9 (3.5-5.1) mmol/L Chloride 101 (98-107) mmol/L Carbon Dioxide 19.3 L (21.0-32.0) mmol/L Anion Gap 15.7 H (3-11) mmol/L BUN 29 H (7-18) mg/dL Creatinine 2.3 H (0.70-1.30) mg/dL Est GFR (CKD-EPI 2020) 30.17 (mL/min/1.73m2) Glucose 111 H (74-106) mg/dL Calcium 9.6 (8.5-10.1) mg/dL Total Bilirubin 0.63 (0.2-1.0) mg/dL AST 21 (15-37) U/L ALT 26 (16-63) U/L Alkaline Phosphatase 133 H (46-116) U/L Total Protein 8.4 H (6.4-8.2) g/dL Albumin 4.2 (3.4-5.0) g/dL Lipase 50 (16-77) U/L Urine Color Yellow (Yellow) Urine Clarity Clear (Clear) Urine pH 6.0 (5-8) Ur Specific [place] 1.015 (1.005-1.025) Urine Protein 30 H (Neg-Trace) mg/dL Urine Ketones Negative (Negative) mg/dL Urine Blood Small H (Negative) Urine Nitrite Negative (Negative) Urine Bilirubin Negative (Negative) Urine Urobilinogen 0.2 (Up to 0.2) mg/dL Ur Leukocyte Esterase Negative (Negative) Urine RBC 3-5 H (0-2) HPF Urine WBC 3-5 (0-5) HPF Ur Epithelial Cells Rare (Negative) HPF Urine Crystals Not Applicable Urine Bacteria Few (Negative) HPF Urine Mucus Not Applicable Urine Other Rare [place] (Negative) Ur Culture Indicated? No Urine Glucose Negative (Negative) mg/dL Intake and Output - 24 Hour Total 01/05/24 19:05 thru 01/05/24 22:18 Intake Total 50 Balance 50 Weight 81.647 kg Intake: IV 50 Falls Risk Assessment History of Falls No History 01/05/24 19:32 Contributing Factors No Factors 01/05/24 19:32 Ambulatory Aids Independent 01/05/24 19:32 Tubes/Lines None 01/05/24 19:32 Gait Evaluation No gait disturbance 01/05/24 19:32 Cognition No cognitive impairment 01/05/24 19:32 Fall Total Score 0 01/05/24 19:32 Level of Risk Standard/Low Risk 01/05/24 19:32 Problems (Last Reviewed 01/05/24 @ 22:02 by Ta Hughes MD) Abdominal pain (Acute) v v v v v v v v v Sending and/or Receiving Nurses: Please use comment section below to note any information pertinent to the patient hand-off not included above. Information / Comments: Report received. Report received from: Betty Quevedo, RN @ [phone]
[2024-01-05 23:00] VITALS: BP 156/78; PULSE 67; RESP 18; TEMP 36.3; O2SAT 95
[2024-01-05] MEDS: Mirtazapine 15 MG TAB 45 MG PO (23:31)
[2024-01-05] MEDS: Meclizine 12.5 MG TAB PO (23:32)
[2024-01-05] MEDS: levETIRAcetam 500 MG TAB PO ×2 (23:32)
[2024-01-05] MEDS: clonazePAM 0.5 MG TAB PO (23:32)
[2024-01-05] MEDS: Lactated Ringers 1,000 ML 125 ML IV (23:33)
[2024-01-06] MEDS: Normal Saline Flush 10 ML SYR (04:39)
[2024-01-06] MEDS: PIPERACILLIN/TAZO 3.375 GM in Normal Saline 50 ML IVPB (04:39)
[2024-01-06 07:23] VITALS: BP 128/86; PULSE 76; RESP 18; TEMP 37.2; O2SAT 94
[2024-01-06 07:30] LABS: HGB 15.4 g/dL (13.5-17.5); MCH 32.4 pg (27.0-33.0); MCHC 34.2 % (32.0-36.0); MCV 95 fL (80-95); MPV 9.9 fL (8.0-11.0); Platelet Count 249 10^3/uL (130-400); RBC 4.76 10^6/uL (4.36-5.78); RDW-SD 42.4 fL; WBC 10.94 10^3/uL (4.4-10.8)
[2024-01-06] MEDS: Acetaminophen 325 MG TAB 650 MG PO ×2 (07:47→14:47)
[2024-01-06] MEDS: Omeprazole 20 MG CAPCR PO (07:48)
[2024-01-06] MEDS: Lactated Ringers 1,000 ML 125 ML IV (07:48)
[2024-01-06 07:51] LABS: Anion Gap 11.7 mmol/L (3-11); BUN 27 mg/dL (7-18); CO2 23.3 mmol/L (21.0-32.0); CREATININE 2.3 mg/dL (0.70-1.30); Calcium 9.4 mg/dL (8.5-10.1); Chloride 104 mmol/L (98-107); Estimated GFR 30.17 (mL/min/1.73m2); Glucose 92 mg/dL (74-106); Potassium 4.7 mmol/L (3.5-5.1); Sodium 139 mmol/L (136-145)
--- NOTE | 2024-01-06 08:39 | PDOC.CMIN ---
Date of service: 01/06/24 Time of Service: 08:39 Care Management Initial Assmt Initial Assessment Reason for Hospitalization: abdominal pain Functional Status/Living Situation Patient Presentation: Florencio was sitting up in bed visiting with his when CM met with him. He was polite but not very talkative, stating only that he wants to know when he can leave. Florencio was admitted with diverticulitis. Today he stated that his pain is better, about a 3/10, and he has no nausea and has not vomited. The CT of his abdomen revealed diverticulosis but not diverticulitis. The provider has ordered a regular diet for Florencio. If he is able to tolerate it he may be able to be discharged later today. Florencio lives in a single family home in [place] with his . They have 2 children and 5 grandchildren, all local. Florencio is retired but worked at many occupations during his working years. 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 Florencio is independent at baseline and does not receive any community services. Town of Residence: [place] Resides with: Spouse (Alma) Significant Other/Family: [facility] Employment Status: Retired Instrumental Activities of Daily Living (ADLs): Independent Medications Medication Management: No Issues/Barriers identified Advance Directives Advance Directives: Do you have an Advance Directive: N 01/10/13 12:03 AD On File at [facility]: N 01/10/13 12:03 Date Asked 01/05/24 01/05/24 19:14 AD Date Reviewed COLST On File at [facility] COLST Date Scanned Code Status Resuscitation Status DNR/DNI Insurance Coverage/Financial Issues Insurance: [employer] Medicare Part A Care Team Visit Care Team Role Provider Type Javier Hernandez NP Primary Care Provider NURSE PRACTITIONER Aubrie Melissa MD Emergency Provider [facility] STAFF PHYSICIAN Ta Hughes MD Admit Provider [facility] STAFF PHYSICIAN Attending Provider Discharge Potential Discharge Needs: PCP F/U Appt Anticipated Barriers to Discharge: None Identified Patient/Family Education Needs: Review discharge instructions, discuss Ask Me Three Transportation: Private vehicle Plan: Anticipate Florencio will be discharged home with no new services when medically cleared. He will follow up with his PCP and plan of care and transport with family. CM will follow and continue to assess for discharge concerns. PFSH All Active Problems (Updated 01/06/24 @ 09:49 by Saloni Tucker APRN) CVA (cerebral vascular accident) (Chronic) Aortic aneurysm (Chronic) Seizure (Acute) Elevated LDL cholesterol level (Acute) Metastatic primary lung cancer (Acute) Abdominal pain (Acute) Abdominal pain (Acute) Right sided abdominal pain (Acute) Chronic kidney disease (Chronic) Elevated serum creatinine (Acute) Fatigue (Acute) Cancer meds Essential hypertension (Acute 11/22/12) Stage IV adenocarcinoma of lung (Acute) Kidney and brain mets Mass of left lung (Acute) Shortness of breath (Acute) Hyperplastic colon polyp (Acute) Anxiety (Acute) COPD (chronic obstructive pulmonary disease) (Acute 11/24/12) Diverticulosis (Acute 10/31/16) Low back pain (Acute) Smoker (Acute) Currently Tubular adenoma (Acute 10/31/16) 10/31/16, three tubular adenomas Vestibular neuronitis (Acute 01/13/13) Medical History Hepatitis C 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 states PCP told him this History of asthma Surgical History Hx of hernia repair History of back surgery buldging disc-1999 Colonoscopy - MAC (10/31/16) Family History Mother Heart disease Emphysema lung Asthma Father Alcohol abuse Lung cancer Sister Depression Breast cancer Mets to lung Sister Depression Sister Stomach cancer Sister No problems noted. Brother Factor 5 Leiden mutation, heterozygous Obese Lung cancer Daughter No problems noted. Daughter No problems noted. Social History Smoking/Tobacco Use Status: Current every day Tobacco Type: cigarettes Tobacco: How many years used: 54 Quit status: not considering quitting Smoking risk assessment performed?: Yes Alcohol Intake: former Drug use: Occasionally Substance use type: marijuana Details: marijuana: t-3, bowl Caregiver/Support person: No Household members: spouse Housing: house Pets and animals: No Sexually active: No Do you think of yourself as: straight/heterosexual Current gender identity: male What is your relationship status?: How often do you talk on the phone with friends or family?: decline to answer How often do you get together with friends or relatives?: decline to answer How often do you attend orthodox or yazdanism services?: decline to answer Do you belong to any clubs or organized social groups?: decline to answer Panel score (0-1 are the most socially isolated patients): 1 What type of physical activity do you participate in: decline to answer Duration: decline to answer Frequency: decline to answer Sherly/Adventist: No preference Special sherly needs: No Seatbelt use: always Drive intox or ride w/intox truck driver teamster: No Do you feel safe at home: Yes Do you feel safe in your relationship?: Yes SDOH(Care Management) Screening Will the Patient Participate in the Screening?: Yes Do you worry about having a steady place to live?: no In the past 12 months, have you had to go without electric, gas, oil or water in your home?: no Have you or anyone in your house had to go without enough food to eat?: no Has lack of transportation kept you from medical appointments or from doing things needed for daily living?: no Has anyone in your support network made you feel unsafe for any reason?: no
--- NOTE | 2024-01-06 09:37 | W.PM.PROGNOT ---
Date of Service Date of service: 01/06/24 Time of Service: 09:37 Assessment and Plan Assessment and plan (1) Abdominal pain: Status: Acute Assessment and plan: Much of this story -- save for the absence of natanael imaging signs -- suggests diverticultits: LLQ pain, change in bowels, chills, leukocytosis, and at least diverticulosis. I think there is enough suggestion to make at least a provisional diagnosis and will go ahead and treat as such: bowel rest, IVF and broad spectrum antibiotics (will continue Zosyn as is), along with prn analgesics and anti-emetics. Of course the presence of metatstatic lung cancer is notable but I do not see this relating to current presentation. Otherwise will continue usual meds as is. Reviewed ADs and requests DNR. (2) Chronic kidney disease: Status: Chronic Assessment and plan: Cr 2.3 around basleine will continue to monitor BMP in AM (3) Essential hypertension: Status: Acute Assessment and plan: Continue home ARB's therapy (4) COPD (chronic obstructive pulmonary disease): Status: Acute Assessment and plan: On PRN nebs (5) Elevated LDL cholesterol level: Status: Acute Assessment and plan: Continue home dose statin (6) Seizure: Status: Acute Assessment and plan: Continue Keppra listed in home meds as seizure prophylaxis No current symptoms Discussed with Dr. Chan (7) Metastatic primary lung cancer: Status: Acute Assessment and plan: to Brain as per 11/2023 (8) Aortic aneurysm: Status: Chronic Assessment and plan: Stable (9) CVA (cerebral vascular accident): Status: Chronic Assessment and plan: Suspected embolic stroke to right frontal cortex Dx on 11/30/2023 On statin but no ASA or plavix in med list Exam Narrative Exam Narrative: Constitutional The patient is sitting in chair/ lying in bed comfortable and cooperative during the interview. The patient is well groomed without acute distress and has average body habitus/is obese/ is thin. HENMT: Head is atraumatic, normocephalic, no lymphadenopathy. Facial structures with normal appearance Eyes: Well aligned, intact ROM Neck: Normal ROM, no meningeal signs Neuro:alert and oriented to self, person, place time and situation. No neurological focal deficit, PERRLA Chest:Chest is symmetrical and normal appearance Resp: Normal respiratory pattern, speaks in full sentences, unlabored breathing, clear lung bilaterally Cardio: regular rhythm, S1, S2, no murmur, capillary refill<3 sec., bilateral radial and dorsalis pedis pulses are positive, palpable GI: Abdomen is not distended, soft and non tender, bowel sounds are present : Negative Costovertebral angle tenderness, no bladder distension Back/spine/Pelvis: No back tenderness, normal alignment Integumentary: No skin lesions or rash Extremities: strength 5/5 to bilateral lower and upper extremities Psych: RASS 0, congruent mood and normal affect. Objective Last Vital Signs Temp 37.2 C 01/06/24 07:23 Pulse 76 01/06/24 07:23 Resp 18 01/06/24 07:23 BP 128/86 01/06/24 07:23 Pulse Ox 94 01/06/24 07:23 Laboratory Results - last 24 hr 01/05/24 01/05/24 01/06/24 19:35 19:51 06:42 WBC 13.36 H 10.94 H RBC 5.15 4.76 Hgb 16.5 15.4 Hct 46.9 45.0 MCV 91 95 D MCH 32.0 32.4 MCHC 35.2 34.2 RDW 11.9 12.0 Plt Count 276 249 MPV 9.6 9.9 Immature Gran % 0.4 Neutrophils % 66.5 Lymphocytes % 16.8 Monocytes % 10.6 Eosinophils % 5.1 Basophils % 0.6 Nucleated RBC % 0.0 Absolute Neutrophils 8.88 H Absolute Lymphocytes 2.24 Absolute Monocytes 1.42 H Absolute Eosinophils 0.68 Absolute Basophils 0.08 VBG Lactate 1.4 Sodium 136 139 Potassium 4.9 4.7 Chloride 101 104 Carbon Dioxide 19.3 L 23.3 Anion Gap 15.7 H 11.7 H BUN 29 H 27 H Creatinine 2.3 H 2.3 H Est GFR (CKD-EPI 2020) 30.17 30.17 Glucose 111 H 92 Calcium 9.6 9.4 Total Bilirubin 0.63 AST 21 ALT 26 Alkaline Phosphatase 133 H Total Protein 8.4 H Albumin 4.2 Lipase 50 Urine Color Yellow Urine Clarity Clear Urine pH 6.0 Ur Specific [place] 1.015 Urine Protein 30 H Urine Ketones Negative Urine Blood Small H Urine Nitrite Negative Urine Bilirubin Negative Urine Urobilinogen 0.2 Ur Leukocyte Esterase Negative Urine RBC 3-5 H Urine WBC 3-5 Ur Epithelial Cells Rare Urine Crystals Not Applicable Urine Bacteria Few Urine Mucus Not Applicable Urine Other Rare [place] Ur Culture Indicated? No Urine Glucose Negative
[2024-01-06] MEDS: PIPERACILLIN/TAZO 2.25 GM in Normal Saline 50 ML IVPB (10:20)
[2024-01-06] MEDS: Meclizine 12.5 MG TAB PO (10:20)
[2024-01-06] MEDS: Losartan 25 MG TAB 12.5 MG PO (10:20)
[2024-01-06] MEDS: Citalopram 20 MG TAB PO (10:20)
[2024-01-06] MEDS: levETIRAcetam 500 MG TAB PO (10:20)
[2024-01-06] MEDS: Atorvastatin 20 MG TAB PO (11:12)
[2024-01-06] MEDS: Citalopram 10 MG TAB PO (11:12)
--- NOTE | 2024-01-06 11:27 | PHA.REVIEW2 ---
Pharmacy Admission Review Admission Clinical Review Admission Pharmacy Review: Seizure (Acute) Elevated LDL cholesterol level (Acute) Metastatic primary lung cancer (Acute) Abdominal pain (Acute) Essential hypertension (Acute 11/22/12) COPD (chronic obstructive pulmonary disease) (Acute 11/24/12) theophylline Adverse Reaction (Mild, Verified 01/05/24 19:24) Nausea and vomiting Resuscitation Status DNR/DNI Height 5 ft 7 in Weight 81.647 kg Comments Comments/Follow Ups: Watch renal function (Zosyn renally dosed, enoxaparin will need to be changed if CrCl drops below 30) Pharmacy Admission Review Renal Dosing Renal Dosing: BUN 27 mg/dL (7-18) H 01/06/24 06:42 Creatinine 2.3 mg/dL (0.70-1.30) H 01/06/24 06:42 Medications needing adjustments: Intervened (CrCl 31.44 mL/min, BUN decreased from 29) List of meds needing interventions: Changed Zofran from 3.375g q6h to 2.25g q6h due to CrCl < 40 Anticoagulation Anticoagulation: Hgb 15.4 g/dL (13.5-17.5) 01/06/24 06:42 Hct 45.0 % (40.0-50.0) 01/06/24 06:42 Plt Count 249 10^3/uL (130-400) 01/06/24 06:42 Creatinine 2.3 mg/dL (0.70-1.30) H 01/06/24 06:42 DVT Prophylaxis: Intervened (Originally no order had been put in. Spoke with provider during morning meeting who then ordered Lovenox) Medications: Enoxaparin (40mg daily) Opiate Usage Evaluate Pain Scale/Pains Meds: Reviewed (PRN IVP morphine - 2 doses given so far) Scheduled Bowel Reg ordered if on Opiates?: No Relevant Labs Relevant Labs: Sodium 139 mmol/L (136-145) 01/06/24 06:42 Potassium 4.7 mmol/L (3.5-5.1) 01/06/24 06:42 Chloride 104 mmol/L (98-107) 01/06/24 06:42 Electrolytes, C-Reactive P, ESR: Reviewed Cardiac Review BP, HR, EF%: Reviewed (HR and BP WNL) List meds needing interventions: Has order for losartan 12.5mg daily QTc Review QTc: Reviewed (No EKG on file) IV to PO Switch IV Medications: Intervened (morphine and Zosyn. Ondansetron order was IVP, asked provider during morning meeting if this could be changed to PO. Provider changed order.) Home Meds Home Med List reviewed: Intervened Relevent Home Meds Not ordered & why?: Overnight pharmacy left citalopram orders pending. Based on home med list and external fill history patient takes both the 10mg and 20mg tablet for total dose of 30mg daily. Verified orders this morning. Current Meds Current Medication Order Review: Intervened Comments: Added IV admission order set Pharmacy Antibiotic Review Relevant Labs: WBC 10.94 10^3/uL (4.4-10.8) H 01/06/24 06:42 Temperature 37.2 C Pharmacy Antibiotic Activity: Renal function adjustment Comments: Patient is on Zosyn, day 1, for diverticulitis. Zosyn renally dose adjusted due to CrCl < 40. WBC decreased from 13.36 and there are currently no cultures. Comments Comments/Follow Ups: Watch renal function (Zosyn renally dosed, enoxaparin will need to be changed if CrCl drops below 30)
--- NOTE | 2024-01-06 14:40 | CHAPLAIN ---
Florencio was resting in bed when I stopped in. His , Alma, was visiting with him. Florencio said he's waiting for something eat and several people have said they've ordered him food, but he hasn't seen it yet. Alma said Florencio would prefer to be home along in [place], but she's spending the day with him. I let Florencio's nurse, Sonja, know hat he's waiting for food. Sonja said they were waiting for his lunch tray (in about half an hour) and will let him know that.
[2024-01-06] MEDS: Enoxaparin 40 MG/0.4 ML SYR SC (14:46)
[2024-01-06] MEDS: Ondansetron O.D.T. 4 MG TABEF PO (14:47)
--- NOTE | 2024-01-06 15:05 | DSE_ITS ---
Date of service: 01/06/24 Time of Service: 15:06 DS: Diagnosis Discharge Diagnosis (1) Abdominal pain: Status: Acute (2) Chronic kidney disease: Status: Chronic (3) Essential hypertension: Status: Acute (4) COPD (chronic obstructive pulmonary disease): Status: Acute (5) Elevated LDL cholesterol level: Status: Acute (6) Seizure: Status: Acute (7) Metastatic primary lung cancer: Status: Acute (8) Aortic aneurysm: Status: Chronic (9) CVA (cerebral vascular accident): Status: Chronic Discharge Plan Disposition Patient Disposition: Home Condition: Improving Discharge Details Reason For Visit: Diverticulitis Admit Date/Time: 01/05/24 22:13 Admit Provider: Ta Hughes Attending Provider: Ta Hughes Primary Care Provider: Javier Hernandez Hospital Course Hospital Course: 68 male with h/o 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 Elevated WBC was noted. He was diagnosed with diverticulitis and treated with pip/tazo even though CT scan did not show diverticulitis or other acute pathology. His pain did improve and WBC trended down on antibiotics. He was sent home to complete a 1 week course for possible early diverticulitis. He was feeling well by the second day and tolerating a regular diet and discharged home on the above. Home Meds and New Rx's Prescriptions: New ondansetron 4 mg Tablet,Disintegrating 4 mg PO Q8H PRN PRNQty: 15 0RF amoxicillin-pot clavulanate 875-125 mg tablet 1 tab PO BID Qty: 12 0RF Continued citalopram 20 mg tablet 20 mg PO DAILY Qty: 90 3RF citalopram 10 mg tablet 10 mg PO DAILY Qty: 90 3RF omeprazole 20 mg capsule,delayed release(DR/EC) 20 mg PO DAILY Qty: 90 3RF losartan 25 mg tablet 12.5 mg PO DAILY Qty: 45 3RF albuterol sulfate 90 mcg/actuation HFA aerosol inhaler 2 puff inhalation QID Qty: 18 12RF clonazepam [Klonopin] 0.5 mg tablet 0.5 mg PO HS Qty: 90 1RF mirtazapine 45 mg tablet 45 mg PO QHS Patient Comments: Prescribed by [facility]/pps (DME) AeroChamber Plus Z Stat Sm Msk 1 EACH spacer 1 ea Miscellaneous DIRECTED Qty: 1 0RF Patient Comments: pt. states he does not use Rx Instructions: for use with [facility], please dispense appropriate size atorvastatin 20 mg tablet 20 mg PO DAILY Patient Comments: preventative - surgery not a viable option with the status of my stage IV Cancer levetiracetam 500 mg tablet 500 mg PO BID Patient Comments: radiation to the brain meclizine 12.5 mg tablet 12.5 mg PO BID Patient Comments: sudden dizziness, random vision changes Discharge Instructions Instructions: Diverticulitis (DC) Additional Instructions: You were diagnosed with diverticulitis, though the CT scan did not show this clearly. Because you improved with antibiotics, you should finish one week of the medication. While your stomach is still bothering you, eat a low fiber diet that is not heavy, like broths and canned or cooked fruits and vegetables. Once you are fully recovered, you should eat a high fiber diet to prevent diverticulitis. Fiber supplement (psyllium) can also help. Follow up with your primary care in 1-2 weeks Activity:: Activity as Tolerated Equipment/Supplies:: No Equipment Needed Diet:: Low residue Discharge Orders Discharge Orders: Discharge Order (Routine); Ordered 01/06/24 Ordered By: Ramírez Chan DS: Summary Time Spent with Patient providing and/or coordinating discharge services: Greater than 30 minutes Status at Discharge Functional status at discharge: independent ambulation Overall status at discharge: patient is back to baseline Mental Status: mental status grossly normal Speech and Movement: speech and movement normal Mood: congruent mood Affect: normal affect Quality:SDOH Health Related Social Needs: No Data to Display Exam Narrative Exam Narrative: GEN: Alert and oriented, NAD. HEENT atraumatic; conj clear, MMM; lungs CTAB, normal effort; heart RRR; abdomen: +BS, soft, mild LLQ tenderness without rebound; extremities w/o edema; Psych Mental Status: mental status grossly normal Speech and Movement: speech and movement normal Mood: congruent mood Affect: normal affect DS: Data Vitals/I&O Vitals and I&O: Vital Signs Temperature 37.2 C 01/06/24 07:23 Temperature Source Temporal Artery Scan 01/06/24 07:23 Pulse 76 01/06/24 07:23 Pulse Rhythm Regular 01/05/24 23:04 Respiratory Rate 18 01/06/24 07:23 Respiratory Effort Normal, Non-Labored 01/05/24 23:04 Respiratory Depth Normal 01/05/24 23:04 Respiratory Pattern Normal 01/05/24 23:04 Blood Pressure 128/86 01/06/24 07:23 Pulse Oximetry 94 01/06/24 07:23 Oxygen Delivery Method Room Air 01/06/24 07:23 Oxygen Flow Rate 0 01/06/24 07:23 Pain Level 3 01/06/24 11:13 Intake & Output 01/05/24 01/06/24 01/06/24 23:59 11:59 23:59 Intake Total 50 / 50 1100 / 1100 Balance 50 / 50 1100 / 1100 Weight 81.647 kg Intake: IV 50 / 50 1100 / 1100 Other: Urine Color Yellow Urine Appearance Clear Data Completed and Pending Labs on day of discharge: Labs from last 24 hours 01/06/24 01/05/24 01/05/24 06:42 19:51 19:35 WBC 10.94 H 13.36 H RBC 4.76 5.15 Hgb 15.4 16.5 Hct 45.0 46.9 MCV 95 D 91 MCH 32.4 32.0 MCHC 34.2 35.2 RDW 12.0 11.9 Plt Count 249 276 MPV 9.9 9.6 Immature Gran % 0.4 Neutrophils % 66.5 Lymphocytes % 16.8 Monocytes % 10.6 Eosinophils % 5.1 Basophils % 0.6 Nucleated RBC % 0.0 Absolute Neutrophils 8.88 H Absolute Lymphocytes 2.24 Absolute Monocytes 1.42 H Absolute Eosinophils 0.68 Absolute Basophils 0.08 VBG Lactate 1.4 Sodium 139 136 Potassium 4.7 4.9 Chloride 104 101 Carbon Dioxide 23.3 19.3 L Anion Gap 11.7 H 15.7 H BUN 27 H 29 H Creatinine 2.3 H 2.3 H Est GFR (CKD-EPI 2020) 30.17 30.17 Glucose 92 111 H Calcium 9.4 9.6 Total Bilirubin 0.63 AST 21 ALT 26 Alkaline Phosphatase 133 H Total Protein 8.4 H Albumin 4.2 Lipase 50 Urine Color Yellow Urine Clarity Clear Urine pH 6.0 Ur Specific [place] 1.015 Urine Protein 30 H Urine Ketones Negative Urine Blood Small H Urine Nitrite Negative Urine Bilirubin Negative Urine Urobilinogen 0.2 Ur Leukocyte Esterase Negative Urine RBC 3-5 H Urine WBC 3-5 Ur Epithelial Cells Rare Urine Crystals Not Applicable Urine Bacteria Few Urine Mucus Not Applicable Urine Other Rare [place] Ur Culture Indicated? No Urine Glucose Negative PFSH All Active Problems (Updated 01/06/24 @ 09:49 by Saloni Tucker APRN) CVA (cerebral vascular accident) (Chronic) Aortic aneurysm (Chronic) Seizure (Acute) Elevated LDL cholesterol level (Acute) Metastatic primary lung cancer (Acute) Abdominal pain (Acute) Abdominal pain (Acute) Right sided abdominal pain (Acute) Chronic kidney disease (Chronic) Elevated serum creatinine (Acute) Fatigue (Acute) Cancer meds Essential hypertension (Acute 11/22/12) Stage IV adenocarcinoma of lung (Acute) Kidney and brain mets Mass of left lung (Acute) Shortness of breath (Acute) Hyperplastic colon polyp (Acute) Vestibular neuronitis (Acute 01/13/13) Tubular adenoma (Acute 10/31/16) 10/31/16, three tubular adenomas Smoker (Acute) Currently Low back pain (Acute) Diverticulosis (Acute 10/31/16) COPD (chronic obstructive pulmonary disease) (Acute 11/24/12) Anxiety (Acute) Medical History Hepatitis C 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 states PCP told him this History of asthma Surgical History Hx of hernia repair History of back surgery buldging disc-1999 Colonoscopy - MAC (10/31/16) Family History Mother Heart disease Emphysema lung Asthma Father Alcohol abuse Lung cancer Sister Depression Breast cancer Mets to lung Sister Depression Sister Stomach cancer Sister No problems noted. Brother Factor 5 Leiden mutation, heterozygous Obese Lung cancer Daughter No problems noted. Daughter No problems noted. Social History Smoking/Tobacco Use Status: Current every day Tobacco Type: cigarettes Tobacco: How many years used: 54 Quit status: not considering quitting Smoking risk assessment performed?: Yes Alcohol Intake: former Drug use: Occasionally Substance use type: marijuana Details: marijuana: t-3, bowl Caregiver/Support person: No Household members: spouse Housing: house Pets and animals: No Sexually active: No Do you think of yourself as: straight/heterosexual Current gender identity: male What is your relationship status?: How often do you talk on the phone with friends or family?: decline to answer How often do you get together with friends or relatives?: decline to answer How often do you attend congregation or cheondoism services?: decline to answer Do you belong to any clubs or organized social groups?: decline to answer Panel score (0-1 are the most socially isolated patients): 1 What type of physical activity do you participate in: decline to answer Duration: decline to answer Frequency: decline to answer Sherly/Congregation: No preference Special sherly needs: No Seatbelt use: always Drive intox or ride w/intox dedicated regional driver: No Do you feel safe at home: Yes Do you feel safe in your relationship?: Yes Time Spent with Patient Time Spent with Patient: <45 minutes Time was spent: preparing to see the patient(eg.review tests), obtaining and/or reviewing separately otained hiistory, ordering medications,tests, procedures, referring, communicating with other health healthcare educator, indepentently interpreting results, counseling the patient and care coordination
[2024-01-06 15:27] VITALS: BP 123/73; PULSE 53; RESP 18; TEMP 37.5; O2SAT 98
--- NOTE | 2024-01-06 16:17 | PT.INNT ---
PT Notes Visit Reasons: Diverticulitis Patient was discharged earlier today from the hospital at baseline independent mobility level with no needed assistive device. No skilled PT services were provided for this epsiode of care.
--- NOTE | 2024-01-07 09:34 | PDOC.CMDIS ---
Date of service: 01/06/24 Time of Service: 12:00 LACE Index Scoring Tool Questions: Length of Stay (in days): 2 Was the patient admitted via the E.D.?: Yes Comorbidities: Cerebrovascular Disease, Chronic Pulmonary Disease, Liver or Renal Disease and Metastatic Solid Tumor E.D. Visits: 1 Answers: Total Score: 11 Risk of Readmission: High Risk Care Management Discharge Plan Reason for Hospitalization: diverticulitis Discharge Plan: Florencio will be discharged home with no new services. He will follow up with his community providers and plan of care and transport with his . Patient/Family Education Needs: Review discharge instructions, follow up plan, discuss Ask Me Three [facility] Health Related Social Needs: No Data to Display
== END 2024-01-06 16:01 | disposition home or self-care (01) | DRG 392 ==
LOC: ER 22:09 → MS 23:01
PROVIDERS: Admitting Provider General Practice; Emergency Provider Student in an Organized Health Care Education/Training Program; PCP Nurse Practitioner Family; Visit Provider General Practice
DX: K57.32 Diverticulitis of large intestine without perforation or abscess without bleeding (principal); C34.92 Malignant neoplasm of unspecified part of left bronchus or lung; C79.31 Secondary malignant neoplasm of brain; C78.01 Secondary malignant neoplasm of right lung; C79.70 Secondary malignant neoplasm of unspecified adrenal gland; N18.9 Chronic kidney disease, unspecified; I12.9 Hypertensive chronic kidney disease with stage 1 through stage 4 chronic kidney disease, or unspecified chronic kidney disease; F17.210 Nicotine dependence, cigarettes, uncomplicated; M54.50 Low back pain, unspecified; F41.9 Anxiety disorder, unspecified; J44.9 Chronic obstructive pulmonary disease, unspecified; Z66 Do not resuscitate; Z86.73 Personal history of transient ischemic attack (TIA), and cerebral infarction without residual deficits; R56.9 Unspecified convulsions
CPT/HCPCS: 00123; 36415; 80048; 80053; 83690; 85027; 96365; 96375; 99285; J1650; 74177; 81003; 81015; 83605; 85025; 99222; 99239; J2270; J2405; J2543; J3490

== ENCOUNTER 2024-08-15 03:01 | Outpatient (CLI) | payer OTHER, SELFPAY, MEDICARE ==
[2024-08-15 12:34] LABS: Abs Immature Grans 0.03 10^3/uL (0.0-0.06); Absolute Basophil Count 0.09 10^3/uL (0.0-0.2); Absolute Eosinophil Count 0.73 10^3/uL (0.0-0.7); Absolute Lymphocyte Count 2.24 10^3/uL (1.2-3.4); Absolute Monocyte Count 0.93 10^3/uL (0.1-0.8); Absolute Neutrophil Count 5.56 10^3/uL (1.2-6.7); Basophils % 0.9 %; Eosinophils % 7.6 %; HCT 44.8 % (40.0-50.0); HGB 15.3 g/dL (13.5-17.5); Immature Grans % 0.3 %; Lymphocytes % 23.4 %; MCH 32.1 pg (27.0-33.0); MCHC 34.2 % (32.0-36.0); MCV 94 fL (80-95); MPV 9.7 fL (8.0-11.0); Monocytes % 9.7 %; Neutrophils % 58.1 %; Platelet Count 293 10^3/uL (130-400); RBC 4.77 10^6/uL (4.36-5.78); RDW 12.7 % (11.8-14.1); RDW-SD 44.1 fL; WBC 9.58 10^3/uL (4.4-10.8)
[2024-08-15 12:53] LABS: ALT 24 U/L (16-63); AST 21 U/L (15-37); Albumin 3.6 g/dL (3.4-5.0); Alkaline Phosphatase 122 U/L (46-116); Anion Gap 9.8 mmol/L (3-11); BUN 37 mg/dL (7-18); Bilirubin, Total 0.4 mg/dL (0.2-1.0); CO2 23.2 mmol/L (21.0-32.0); CREATININE 2.2 mg/dL (0.70-1.30); Calcium 8.7 mg/dL (8.5-10.1); Chloride 104 mmol/L (98-107); Estimated GFR 31.63 (mL/min/1.73m2); Glucose 95 mg/dL (74-106); Sodium 137 mmol/L (136-145); Total Protein 7.7 g/dL (6.4-8.2)
== END 2024-08-15 03:02 | disposition home or self-care (01) ==
PROVIDERS: PCP Nurse Practitioner Family; Visit Provider Internal Medicine Medical Oncology
DX: C34.30 Malignant neoplasm of lower lobe, unspecified bronchus or lung (principal); C79.72 Secondary malignant neoplasm of left adrenal gland; E87.5 Hyperkalemia; N18.32 Chronic kidney disease, stage 3b
CPT/HCPCS: 80053; 85025

== ENCOUNTER 2024-12-19 16:27 | Outpatient (CLI) | payer OTHER, SELFPAY ==
[2024-12-19 16:53] LABS: Hemoglobin A1C 5.9 % (<5.7)
[2024-12-19 17:14] LABS: Calculated LDL 82 mg/dL (<100); Cholesterol 144 mg/dL (<200); HDL Cholesterol 45 mg/dL (>or=40); Potassium 5.1 mmol/L (3.5-5.1); Triglyceride 85 mg/dL (<150)
[2024-12-20 18:10] LABS: PSA, Screening 0.3 ng/mL (<=4.5)
== END 2024-12-19 16:28 | disposition home or self-care (01) ==
LOC: LBO 16:28
PROVIDERS: PCP Nurse Practitioner Family; Visit Provider Nurse Practitioner Family
DX: Z13.6 Encounter for screening for cardiovascular disorders (principal); Z12.5 Encounter for screening for malignant neoplasm of prostate; Z13.1 Encounter for screening for diabetes mellitus; E87.5 Hyperkalemia
CPT/HCPCS: 36415; 80061; 84153; 83036; 84132